=== PATIENT | female | born 1945 | race Caucasian/White ===

== ENCOUNTER 2024-12-08 04:21 | Emergency (ER) | payer MEDICARE, SELFPAY ==
[2024-12-08 04:23] VITALS: BP 125/85; PULSE 70; RESP 16; TEMP 36.1; O2SAT 99
[2024-12-08 04:37] VITALS: PULSE 76
[2024-12-08 04:42] VITALS: BP 147/96; PULSE 77; RESP 19; O2SAT 94; O2SAT 95
[2024-12-08 04:43] VITALS: O2SAT 94
[2024-12-08 04:45] LABS: Basophils Percent Auto 0.4 % (0.2-1.2); Eosinophils Absolute Auto 0.2 K/mm3 (0-0.3); Eosinophils Percent Auto 2.3 % (0-4.4); Hematocrit 42.4 % (37.0-47.0); Hemoglobin 15.1 g/dL (12.0-15.0); Immature Granulocyte Absolute 0.02 K/mm3 (0.00-0.031); Immature Granulocyte Percent A 0.3 % (0-0.5); Lymphocytes Percent Auto 22.7 % (18.3-44.2); Mean Corpuscular HGB Conc 35.6 g/dl (32-36); Mean Corpuscular Hemoglobin 34.3 pg (26-34); Mean Corpuscular Volume 96.4 fl (80-100); Monocytes Absolute Auto 0.5 K/mm3 (0.1-0.6); Monocytes Percent Auto 7.5 % (2.6-8.5); Neutrophils Absolute Auto 4.7 K/mm3 (1.3-6.7); Neutrophils Percent Auto 66.8 % (45.5-73.1); Platelet Count Result 202 k/mm3 (150-375); Red Cell Distribution Width 12.6 % (11.5-14.5); White Blood Count 7.1 K/mm3 (4.5-10.0)
[2024-12-08 04:58] LABS: Prothrombin Time 13.3 Seconds (11.1-14.7)
[2024-12-08 04:59] LABS: Partial Thromboplastin Time 28.1 Seconds (22.3-36.8)
[2024-12-08 05:13] LABS: Troponin I < 0.012 ng/mL (0.000-0.034)
[2024-12-08 05:15] LABS: Alanine Aminotransferase 55 U/L (6-35); Albumin Level 4.6 g/dL (3.5-5.1); Alkaline Phosphatase 92 U/L (38-126); Anion Gap 14 mmol/L (4-12); Aspartate Amino Transferase 44 U/L (14-36); Bilirubin,Total 0.7 mg/dL (0.2-1.3); Blood Urea Nitrogen 47 mg/dL (7-17); Calcium 9.7 mg/dL (8.4-10.2); Carbon Dioxide 19 mmol/L (22-30); Chloride 101 mmol/L (98-107); Estimated CRCL calculation 53 ml/min; Estimated Glomerular Filt Rate > 60; Glucose 156 mg/dL (65-110); Lipase 777 U/L (23-300); Potassium 3.8 mmol/L (3.4-5.0); Sodium 134 mmol/L (137-145)
--- NOTE | 2024-12-08 05:38 | ED.CHESTPAIN ---
HPI - Chest Pain General Chief Complaint: Chest Pain Stated Complaint: chest pain x1 day Time Seen by Provider: 12/08/24 04:35 History of Present Illness HPI narrative: Patient is a 79-year-old female who presents to the emergency department this evening complaining of chest pain which started yesterday morning. Daughter who is present at bedside with the patient provides majority of the history as patient has a history of dementia. Patient's nursing facility contacted the daughter informing her that yesterday patient had chest pain and she was administered aspirin in the morning and pain did improve however patient was more tired and lethargic throughout the day. Today the patient was complaining of more severe chest pain so they decided to bring her into the emergency department for further evaluation. She did receive aspirin and ibuprofen. Upon arrival to the emergency department, patient states that now she does not have any pain and is resting comfortably requesting fluids stating that she is very hungry. States that the pain was right-sided but denies any radiation of the pain and denies any associated symptoms including any nausea, vomiting or abdominal pain. No additional symptoms or concerns at this time. Related Data Allergies Allergy/AdvReac Type Severity Reaction Status Date / Time Penicillins Allergy Intermediate Rash Verified 12/08/24 04:23 Review of Systems Review of Systems: All systems are reviewed and are negative unless stated otherwise in the HPI. Exam Narrative: General: Alert, awake, afebrile, in no acute distress. HEENT: PERRL, no rhinorrhea, no post nasal drip, oropharynx clear. Neck: Trachea midline, no JVD, no lymphadenopathy. Cardiovascular: Regular rate and rhythm, no murmurs, rubs or gallops, no peripheral edema. Respiratory: Clear to auscultation bilaterally, no tachypnea, no wheezing, no rhonchi, no rubs, no respiratory distress. Abdomen: Soft, nontender, nondistended, no rebound, no guarding, no peritoneal signs. Musculoskeletal: No joint swelling or deformity, normal muscle tone. Skin: No rashes or petechia, no signs of infection. Psychiatric: Alert and oriented, normal behavior and judgment for situation. Neurological: Alert and oriented to person, place, and time. Follows all commands. No focal deficits, speech is clear and fluent. Course Vital Signs Vital signs: Vital Signs Temperature 97.0 F L 12/08/24 04:23 Pulse Rate 70 03/02/25 04:23 Respiratory Rate 16 12/08/24 04:23 Blood Pressure 125/85 12/08/24 04:23 Pulse Oximetry 99 12/08/24 04:23 Oxygen Delivery Room Air 12/08/24 04:23 Temperature 97.0 F L 12/08/24 04:23 Pulse Rate 77 12/08/24 04:42 Respiratory Rate 19 12/08/24 04:42 Blood Pressure 147/96 H 12/08/24 04:42 Pulse Oximetry 94 12/08/24 04:43 Oxygen Delivery Room Air 12/08/24 04:43 MDM - Chest Pain MDM Narrative Medical decision making narrative: The patient was evaluated by myself in the emergency department. History is obtained from patient who is an independent historian and physical exam was performed. External medical records were reviewed at this time. IV was established and pertinent tests were ordered. EKG was obtained which revealed sinus rhythm rate of 65 beats per minute, no evidence of acute ischemia. EKG was independently interpreted by me and is currently pending official cardiology read. Laboratory results obtained revealing a normal troponin, elevated lipase at 777, mild transaminitis with an AST of 44 and an ALT of 55 otherwise unremarkable. Imaging studies obtained included CXR which was independently interpreted by me revealing no acute cardiopulmonary process, which is pending final radiology interpretation. CT abdomen pelvis with IV contrast was also obtained at this time and bili interpreted by me revealing no acute intra-abdominal process. Differential diagnosis considerations include coronary artery disease, costochondritis, infectious process such as pneumonia, acute pancreatitis. Comorbidities impacting this visit include none. I have evaluated and discussed social determinants of health with the patient that could potentially impact subsequent diagnosis and treatment plans. On repeat assessment of the patient, reevaluation revealed that the patient is doing well and is in no acute distress. Patient symptoms have improved since she arrived to our emergency department. Repeat vital signs were all reviewed and noted to be stable. Differential diagnosis and treatment plan were discussed with the patient at bedside. Patient agrees with discussion and after shared medical decision making agrees with discharge. All questions were answered to the patient's satisfaction. Patient will follow up with her marbleizer in 3-5 days. Patient was provided with strict return precautions and instructed to return to the emergency department if any new or worsening symptoms develop. The patient was discharged in stable condition. Lab Data 12/08/24 04:39 12/08/24 04:39 Labs: Lab Results 12/08/24 Range/Units 04:39 WBC 7.1 (4.5-10.0) K/mm3 RBC 4.40 (4.2-5.4) M/mm3 Hgb 15.1 H (12.0-15.0) g/dL Hct 42.4 (37.0-47.0) % MCV 96.4 (80-100) fl MCH 34.3 H (26-34) pg MCHC 35.6 (32-36) g/dl RDW 12.6 (11.5-14.5) % Plt Count 202 (150-375) k/mm3 MPV 9.0 (7.4-10.4) fl Immature Gran % (Auto) 0.3 (0-0.5) % Neut % (Auto) 66.8 (45.5-73.1) % Lymph % (Auto) 22.7 (18.3-44.2) % Newton % (Auto) 7.5 (2.6-8.5) % Eos % (Auto) 2.3 (0-4.4) % Baso % (Auto) 0.4 (0.2-1.2) % Lymph # (Auto) 1.60 (0.9-3.2) K/mm3 Newton # (Auto) 0.5 (0.1-0.6) K/mm3 Eos # (Auto) 0.2 (0-0.3) K/mm3 Baso # (Auto) 0.0 (0.0-0.1) K/mm3 Abs Immat Gran (auto) 0.02 (0.00-0.031) K/mm3 Absolute Neuts (auto) 4.7 (1.3-6.7) K/mm3 Absolute Nucleated RBC 0.000 (0.0-0.012) K/mm3 Nucleated RBC % 0.0 (0.0-0.2) % PT 13.3 (11.1-14.7) Seconds INR 1.0 APTT 28.1 (22.3-36.8) Seconds Sodium 134 L (137-145) mmol/L Potassium 3.8 (3.4-5.0) mmol/L Chloride 101 (98-107) mmol/L Carbon Dioxide 19 L (22-30) mmol/L Anion Gap 14 H (4-12) mmol/L BUN 47 H (7-17) mg/dL Creatinine 0.64 L (0.7-1.0) mg/dL Estim Creat Clear Calc 53 ml/min Estimated GFR > 60 (59 - ) Glucose 156 H (65-110) mg/dL Calcium 9.7 (8.4-10.2) mg/dL Total Bilirubin 0.7 (0.2-1.3) mg/dL AST 44 H (14-36) U/L ALT 55 H (6-35) U/L Alkaline Phosphatase 92 (38-126) U/L Troponin I < 0.012 (0.000-0.034) ng/mL Total Protein 8.0 (6.3-8.2) g/dL Albumin 4.6 (3.5-5.1) g/dL Lipase 777 H (23-300) U/L Discharge Plan Discharge Clinical Impression: Atypical chest pain Patient Disposition: Home, Self-Care Condition: Improved Instructions: Antibiotic Form, Chest Pain (ED) Additional Instructions: Please follow-up with your marbleizer within the next 3-5 days. Return to the emergency department if any new or worsening symptoms develop. Patient Language: Azerbaijani Follow-up/Referrals: Ceci Lockwood DO [Physician] - 3 Days PHYSICIAN,HOST HOSTESS [Non-Staff] - Time of Disposition: 06:41
== END 2024-12-08 06:49 ==
PROVIDERS: Emergency Provider Emergency Medicine
DX: R07.89 Other chest pain (principal); F03.90 Unspecified dementia, unspecified severity, without behavioral disturbance, psychotic disturbance, mood disturbance, and anxiety; R94.31 Abnormal electrocardiogram [ECG] [EKG]
CPT/HCPCS: 36415; 71045; 74177; 80053; 83690; 84484; 85025; 85610; 85730; 93005; 99284; Q9967

== ENCOUNTER 2025-01-02 04:31 | Emergency (ER) | payer MEDICARE, SELFPAY ==
--- NOTE | ~2025-01-02 | CT_ITS ---
EXAMINATION: CT cervical spine wo con DATE: 01/02/2025 06:13 INDICATION: Neck injury. Fall. TECHNIQUE: Computed tomography (CT) of the cervical spine was performed without intravenous contrast. Automated exposure control and iterative reconstruction technique were employed. The dose-length pro duct was 214.92 mGy-cm. COMPARISON: None FINDINGS: There is kyphosis of cervical spine. There is 6 degrees levocurvature of cervical spine. Th ere is 3 mm anterolisthesis of C3 on C4. Vertebral body heights are normal. There is mildly decreased disc height at C3-C4. There is severely decreased disc height from C4-C5 through C6-C7 with interbod y fusion at C4-C5. The following disc levels are specifically discussed: C2-C3: There is mild left uncovertebral joint osteoarthritis. There is mild right and severe left fac et joint osteoarthritis. There is mild left neural foraminal stenosis. There is no central canal sten osis. C3-C4: There is severe right and moderate left uncovertebral joint osteoarthritis. There is severe bi lateral facet joint osteoarthritis. There is mild bilateral neural foraminal stenosis. There is mild central canal stenosis. C4-C5: There is moderate bilateral uncovertebral joint hypertrophy. There is mild bilateral facet kevin nt hypertrophy. There is no neural foraminal stenosis. There is mild central canal stenosis. C5-C6: There is severe bilateral uncovertebral joint osteoarthritis. There is moderate right and mild left facet joint osteoarthritis. There is mild bilateral neural foraminal stenosis. There is mild ce ntral canal stenosis. C6-C7: There is severe bilateral uncovertebral joint osteoarthritis. There is mild bilateral facet berkley int osteoarthritis. There is mild left neural foraminal stenosis. There is mild central canal stenosi s. C7-T1: There is no uncovertebral joint osteoarthritis. There is severe bilateral facet joint osteoart hritis. There is mild left neural foraminal stenosis. There is no central canal stenosis. IMPRESSION: 1. No fracture. 2. Severe cervical spondylosis. Reviewed, dictated and finalized at location A.
--- NOTE | ~2025-01-02 | XR_ITS ---
EXAMINATION: XR hip BI 2V w AP pelvis DATE: 01/02/2025 06:29 INDICATION: Hip pain. Fall. TECHNIQUE: An anteroposterior view of the pelvis and 2 views of each hip were obtained. COMPARISON: None. FINDINGS: There is lumbar levoscoliosis and severe spondylosis. No fracture. There is mild osteoarthr itis of the hips. Osteitis pubis is noted. IMPRESSION: 1. Mild osteoarthritis of the hips. Reviewed, dictated and finalized at location A.
--- NOTE | ~2025-01-02 | CT_ITS ---
EXAMINATION: CT lumbar spine wo con DATE: 01/02/2025 06:14 INDICATION: Low back pain. Fall. TECHNIQUE: Computed tomography (CT) of the lumbar spine was performed without intravenous contrast. A utomated exposure control and iterative reconstruction technique were employed. The dose-length produ ct was 339.70 mGy-cm. COMPARISON: CT abdomen and pelvis 12/08/2024 FINDINGS: There is diverticulosis of the colon without evidence of diverticulitis. There is 21 degree s lumbar levoscoliosis. There is mild chronic anterior wedging of T12 vertebral body. There is modera tely decreased disc height at T12-L1, severely decreased disc height at L1-L2 and L2-L3, mildly decre ased disc height at L3-L4, and severely decreased disc height at L4-L5 and L5-S1. The following disc levels are specifically discussed: L1-L2: The disc is bulging. There is moderate right and mild left facet joint osteoarthritis. There i s mild left neural foraminal stenosis. There is mild central canal stenosis. L2-L3: The disc is bulging. There is mild bilateral facet joint osteoarthritis. There is mild bilater al neural foraminal stenosis. There is mild central canal stenosis. L3-L4: The disc is bulging. There is mild right and moderate left facet joint osteoarthritis. There i s mild bilateral neural foraminal stenosis. There is mild central canal stenosis. L4-L5: The disc is bulging. There is severe bilateral facet joint osteoarthritis. There is mild bilat eral neural foraminal stenosis. There is mild central canal stenosis. L5-S1: The disc is bulging. There is severe bilateral facet joint osteoarthritis. There is mild bilat eral neural foraminal stenosis. There is mild central canal stenosis. IMPRESSION: 1. No fracture. 2. Severe lumbar spondylosis. 3. Lumbar levoscoliosis. Reviewed, dictated and finalized at location A.
--- NOTE | ~2025-01-02 | CT_ITS ---
EXAMINATION: CT brain wo con DATE: 01/02/2025 06:13 INDICATION: Head injury. Fall. TECHNIQUE: Computed tomography (CT) of the head was performed without intravenous contrast. The mA wa s adjusted according to patient size. Iterative reconstruction technique was employed. The dose-lengt h product was 681.00 mGy-cm. COMPARISON: None FINDINGS: There are scattered areas of low attenuation in the cerebral white matter. There is no intr acranial hemorrhage, acute infarction, or abnormal intracranial mass lesion. The ventricles are abraham l in size. There are likely changes of ocular lens replacement surgeries. There is mild mucosal thick ening in the paranasal sinuses. The mastoid air cells are normal. IMPRESSION: 1. Moderate nonspecific cerebral white matter disease, which likely represents chronic small vessel i schemic disease. Reviewed, dictated and finalized at location A. IMPRESSION: 1. Moderate nonspecific cerebral white matter disease, which likely represents chronic small vessel ischemic disease.
[2025-01-02 04:27] VITALS: BP 109/72; PULSE 67; RESP 20; TEMP 36.8; O2SAT 96
[2025-01-02 04:37] VITALS: BP 109/72; PULSE 79; RESP 18; O2SAT 94
--- NOTE | 2025-01-02 05:06 | ED_ITS ---
HPI - Fall General Chief Complaint: Fall Stated Complaint: hip/pelvic pain; GLF yesterday Time Seen by Provider: 01/02/25 05:05 Source: patient, family and RN notes reviewed Mode of arrival: EMS Limitations: dementia History of Present Illness HPI Narrative: Patient presents with hip/pelvic pain. She had a ground level fall reportedly yesterday although the details are unclear as she does not recall falling (his tory of dementia) and daughter might seem to indicate that it was earlier this morning. She resides at an assisted living facility. She does not know if it is her right or left more than the other. She denies any paresthesias or saddle anesthesia ( I haven't had any tingling down there in awhile! she states) although she does state that her toes are numb but this is secondary to her chronic neuropathy. She is complaining of low back pain 6/10 severity. Denies any incontinence of bowel or bladder. Not on any anticoagulation per her or her family member. Related Data Allergies Allergy/AdvReac Type Severity Reaction Status Date / Time Penicillins Allergy Intermediate Rash Verified 12/08/24 04:23 lactose Allergy unknown Verified 01/02/25 05:25 wheat Allergy unknown Verified 01/02/25 05:26 PMFSH Past Medical History Medical History Arteriosclerotic vascular disease Dementia Osteoporosis Mario thyroiditis Hypothyroidism Pneumococcal vaccine administered 07/03/2018 COVID-19 vaccine administered 11/27/2020, 12/18/2020; 09/09/2021 Social History Social History Social History: POLST signed 02/07/24: Yes CPR, Full Code; selective treatment Living arrangements: assisted living Additional living arrangements comments: [place] since 01/15/24 Occupation/Education: retired 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 HEAD: Normocephalic, atraumatic. EYES: Non injected, non icteric ENT: Nares clear, no rhinorrhea or epistaxis. NECK: Supple. CHEST: Speaking in full sentences. No respiratory distress. HEART: Regular rate and rhythm. . ABDOMEN: Soft, nondistended. Nontender to palpation. EXTREMITIES: Normal range of motion. No lower extremity edema. Pelvis: Stable to compression although with right hip tenderness to palpation. No overlying bony deformity or ecchymosis. SKIN: Warm, dry, no rash. NEURO: No focal deficits. Alert and oriented. Full strength and patient able to demonstrate the ability to lift legs off of the bed and hold them without any motor drift. Sensation intact throughout bilateral lower extremities. PSYCH: Normal mood and affect. Course Vital Signs Vital signs: Vital Signs Temperature 98.3 F 01/02/25 04:27 Pulse Rate 67 01/02/25 04:27 Respiratory Rate 20 01/02/25 04:27 Blood Pressure 109/72 01/02/25 04:27 Pulse Oximetry 96 01/02/25 04:27 Oxygen Delivery Room Air 01/02/25 04:27 Temperature 98.3 F 01/02/25 04:27 Pulse Rate 76 01/02/25 08:39 Respiratory Rate 18 01/02/25 08:39 Blood Pressure 110/74 01/02/25 08:39 Pulse Oximetry 98 01/02/25 08:39 Oxygen Delivery Room Air 01/02/25 04:27 MDM - Fall MDM Narrative Medical decision making narrative: This is an exceedingly pleasant 79-year-old female with history of dementia who presents with hip/pelvis pain after a ground level fall that occurred either yesterday or today. Patient also having low back pain. She does not recall falling. In the emergency department they are afebrile with vital signs within normal limits. Medication list is reviewed. Patient is not on any anticoagulation. X-ray and CT imaging performed as below; included head and neck given patient's age and her not recalling the details though I suspect this is secondary to her dementia. No focal neuro deficits. Imaging negative for acute process. Patient ambulated and per nurses x2, appropriate gait assessment. Patient discharged back to facility in stable condition. Provided multimodal pain regimen prescriptions. Advised to follow-up primary care physician return with new or worsening symptoms. Patient and her daughter comfortable with the plan and verifies understanding. Discussed balancing rest with pain control to stay moving and active so don't become more sore/achy. Differential Diagnosis Differential diagnosis: Likely compression fracture and other (Fracture, dislocation, bony contusion; intracranial hemorrhage) Imaging Data Radiologist's impression: Impressions Head CT 01/02/25 06:17 IMPRESSION: 1. Moderate nonspecific cerebral white matter disease, which likely represents chronic small vessel ischemic disease. Lumbar Spine CT 01/02/25 06:19 IMPRESSION: 1. No fracture. 2. Severe lumbar spondylosis. 3. Lumbar levoscoliosis. Cervical Spine CT 01/02/25 06:22 IMPRESSION: 1. No fracture. 2. Severe cervical spondylosis. Hip/Pelvis X-Ray 01/02/25 06:30 IMPRESSION: 1. Mild osteoarthritis of the hips. Discharge Plan Discharge Clinical Impression: Fall, Lumbar spondylosis, Levoscoliosis of lumbar spine, Cervical spondylosis, Osteoarthritis of both hips, Acute hip pain Patient Disposition: [facility] Senior Living/Asst Living Condition: Stable Instructions: Antibiotic Form, Osteoarthritis (DC), Fall Prevention (ED), Hip Pain (ED) Additional Instructions: As we discussed, no bleeding in her brain or fracture/broken bones. You should expect to be sore and achy but balance some rest with staying active. Multimodal pain medications can help with this. Acetaminophen/Tylenol (maximum 4000 mg per day) is safe to take with NSAIDs (ibuprofen/Motrin) for pain relief. You have also been prescribed topical lidocaine patches. Follow-up with primary care physician/facility quality engineer medical device. Return to the emergency department any new or worsening symptoms. Patient Language: Syrian Prescriptions: New acetaminophen 500 mg capsule 1,000 mg PO Q6H PRN (Reason: pain) Qty: 30 0RF lidocaine 4 % adhesive patch,medicated 1 patch topical DAILY PRN (Reason: pain) Qty: 5 0RF ibuprofen 600 mg tablet 600 mg PO TID PRN (Reason: pain) Qty: 30 0RF Follow-up/Referrals: Dr Nathalie Mahoney & Dr Con Jones [Other] (per asst living documentation) UNKNOWN,DOCTOR [Primary Care Provider] - Stand Alone Forms: Half-Way Discharge Time of Disposition: 07:13
--- OUTSIDE RECORDS SUMMARY | 2025-01-02 05:18 | XMS_ITS | Data Portability ---
Author Organization [facility] [employer], Main Office Address [address] [place] [id number] Assessment No assessment recorded. Plan of Treatment Reminders Order Date Submit Date Provider Last Modified By Organization Details Last Modified Time Details Appointments None recorded. Lab CMP, serum or plasma 2022 023 [facility] (Lab), [address] [place], [address], 3 18:24:46 TSH, serum or plasma 2022 023 [facility] (Lab), [address] [place], [address], 3 19:35:34 TSH, serum or plasma 2022 023 [facility] (Lab), [address] [place], [address], 3 19:53:10 CBC 2022 023 [facility] (Lab), [address] [place], [address], 3 18:32:12 CMP, serum or plasma 2022 023 [facility] (Lab), [address] [place], [address], 3 19:15:25 TSH, serum or plasma 2022 023 [facility] (Lab), [address] [place], [address], 3 19:02:17 CBC 2022 023 [facility] (Lab), [address] [place], [address], 3 18:11:18 CMP, serum or plasma 2022 023 [facility] (Lab), [address] [place], [address], 3 18:29:02 Referral neurologist referral 2022 023 [email or web address] 3 [facility] [place], [address] [place] [address], [address], 3 09:59:13 vestibular therapy referral - Needs vestibular therapy [address] [facility], [address] [facility], [address], [place], [address], 3 11:32:30 Procedures None recorded. Surgeries None recorded. Imaging None recorded. Medication Orders fluoxetine 20 mg capsule 2022 023 [id number], [address], [place], [id number], 3 14:05:28 prednisone 10 mg tablet 2022 023 [email or web address] [facility] #[id number], [address], [place], [id number], 3 14:38:41 fluoxetine 20 mg capsule 2022 023 [facility][id number], [address], [place], [id number], 3 14:47:00 Patient TargetsNo targets recorded. Patient InstructionsNo instructions recorded. Reason for Referral Vestibular Therapy Referral for Dizziness Needs vestibular therapy Referring Physician: [facility], Encounter Date: 02/28/2023 Neurologist Referral for Dilorraine ziness of unknown cause Referring Physician: [facility], Encounter Date: 06/13/2023 Results Created Date Observation Date Name Description Value Unit Range Abnormal Flag Note LastModifiedBy Organization Detail LastModifiedTime 01/18/2001/17/2023 CBC W/O DIFFE RENTI AL white blood cells 7.4 x10'3 /uL 4.2-10 .8 Not Available [facility] (Lab) [address] [place], [address], 01/17/2023 18:11:18 01/18/2001/17/2023 CBC W/O DIFFE RENTI AL red blood cells 4.27 x10'6 /uL 3.80-5 .20 Not Available [facility] (Lab) [address] [place], [address], 01/17/2023 18:11:18 01/18/20 23 01/17/2023 CBC W/O DIFFE RENTI AL hemoglobin 13.8 g/dL 12.0-1 5.6 Not Available [facility] (Lab) [address] [place], [address], 01/17/2023 18:11:18 01/18/2001/17/2023 CBC W/O DIFFE RENTI AL hematocrit 40.9 % 35.7-4 5.7 Not Available [facility] (Lab) [address] [place], [address], 01/17/2023 18:11:18 01/18/20 23 01/17/2023 CBC W/O DIFFE RENTI AL mean red cell volume 95.8 fL 82.0-9 9.0 Not Available [facility] (Lab) [address] [place], [address], 01/17/2023 18:11:18 01/18/20 23 01/17/2023 CBC W/O DIFFE RENTI AL mean red cell hemoglobin 32.3 pg 27.0-3 3.0 Not Available [facility] (Lab) [address] [place], [address], 01/17/2023 18:11:18 01/18/20 23 01/17/2023 CBC W/O DIFFE RENTI AL mean RBC HGB concentratio n 33.7 g/dL 31.0-3 6.0 Not Available [facility] (Lab) [address] [facility] [place], [address], 01/17/2023 18:11:18 01/18/20 23 01/17/2023 CBC W/O DIFFE RENTI AL red cell distribution width 12.9 % 11.8-1 5.5 Not Available [facility] (Lab) [address] [place], [address], 01/17/2023 18:11:18 01/18/20 23 01/17/2023 CBC W/O DIFFE RENTI AL platelets 202 x10'3 /uL 150-40 0 Not Available [facility] (Lab) [address] [place], [address], 01/17/2023 18:11:18 01/18/20 23 01/17/2023 CBC W/O DIFFE RENTI AL mean platelet volume 10.7 fL 9.0-12 .4 Not Available [facility] (Lab) [address] [place], [address], 01/17/2023 18:11:18 01/18/20 23 01/17/2023 COMPR EHENS BLANCA METAB OLIC PANEL sodium 135 mmol/ L 137-14 5 low Not Available [facility] (Lab) [address] [place], [address], 01/17/2023 18:29:02 01/18/20 23 01/17/2023 COMPR EHENS BLANCA METAB OLIC PANEL potassium 4.1 mmol/ L 3.5-5. 1 Not Available [facility] (Lab) [address] [facility] [place], [address], 01/17/2023 18:29:02 01/18/20 23 01/17/2023 COMPR EHENS BLANCA METAB OLIC PANEL chloride 103 mmol/ L 98-107 Not Available [facility] (Lab) [address] [place], [address], 01/17/2023 18:29:02 01/18/20 23 01/17/2023 COMPR EHENS BLANCA METAB OLIC PANEL carbon dioxide 22 mmol/ L 22-30 Not Available [facility] (Lab) [address] [place], [address], 01/17/2023 18:29:02 01/18/20 23 01/17/2023 COMPR EHENS BLANCA METAB OLIC PANEL anion gap 14.1 mmol/ L 14-22 Not Available [facility] (Lab) [address] [place], [address], 01/17/2023 18:29:02 01/18/20 23 01/17/2023 COMPR EHENS BLANCA METAB OLIC PANEL glucose 88 mg/dL 70-99 Not Available [facility] (Lab) [address] [place], [address], 01/17/2023 18:29:02 01/18/20 23 01/17/2023 COMPR EHENS BLANCA METAB OLIC PANEL BUN 25 mg/dL 8-19 high Not Available [facility] (Lab) [address] [place], [address], 01/17/2023 18:29:02 01/18/20 23 01/17/2023 COMPR EHENS BLANCA METAB OLIC PANEL creatinine 0.72 mg/dL 0.66-1 .25 Not Available [facility] (Lab) [address] [place], [address], 01/17/2023 18:29:02 01/18/20 23 01/17/2023 COMPR EHENS BLANCA METAB OLIC PANEL GFR >60 Refer ence Range : Bernice ge GFR Healt hy Adult : >60 mL/mi n/1.7 3 m2 Chron ic Kidne y Disea se: 15-60 mL/mi n/1.7 3 m2 Kidne y Failu re: <15/m L/min /1.73 m2 www.n iddk. nih.g ov The MDRD study equat ion has not been valid ated in child mio <18 years of age; pregn ant women ; the elder ly >85 years of age; or in some racia l or ethni c subgr oups, such as James nics. Outsi de the valid ated claudette eters , estim ated GFR is less accur ate, requi ring clini chana judgm ent on a case- by-ca se basis . Clini chana inter preta tion for other races and ages must be made by the clini ade. The MDRD study equat ion has not been valid ated for the evalu ation of serum creat inine relat ed to nutri simone l statu s or medic ation usage . For perso ns <18 years of age, a pedia tric GFR calcu lator is avail able on the [facility] websi te: https :[email or web address] [email or web address] rg/pr ofess ional s/kdo qi/gf r_cal culat or Not Available [facility] (Lab) [address] [place], [address], 01/17/2023 18:29:02 01/18/20 23 01/17/2023 COMPR EHENS BLANCA METAB OLIC PANEL alkaline phosphatase 93 U/L 38-126 Not Available [facility] (Lab) [address] [place], [address], 01/17/2023 18:29:02 01/18/20 23 01/17/2023 COMPR EHENS BLANCA METAB OLIC PANEL alanine aminotransfe rase 31 U/L 0-35 Not Available [facility] (Lab) [address] [place], [address], 01/17/2023 18:29:02 01/18/20 23 01/17/2023 COMPR EHENS BLANCA METAB OLIC PANEL aspartate aminotransfe rase 36 U/L 15-37 Not Available [facility] (Lab) [address] [place], [address], 01/17/2023 18:29:02 01/18/20 23 01/17/2023 COMPR EHENS BLANCA METAB OLIC PANEL bilirubin, total 0.70 mg/dL 0.20-1 .30 Not Available [facility] (Lab) [address] [place], [address], 01/17/2023 18:29:02 01/18/20 23 01/17/2023 COMPR EHENS BLANCA METAB OLIC PANEL calcium 9.5 mg/dL 8.4-10 .2 Not Available [facility] (Lab) [address] [facility] [place], [address], 01/17/2023 18:29:02 01/18/20 23 01/17/2023 COMPR EHENS BLANCA METAB OLIC PANEL total protein 7.0 g/dL 6.3-8. 2 Not Available [facility] (Lab) [address] [place], [address], 01/17/2023 18:29:02 01/18/20 23 01/17/2023 COMPR EHENS BLANCA METAB OLIC PANEL albumin 4.2 g/dL 3.0-4. 4 Not Available [facility] (Lab) [address] [facility] [place], [address], 01/17/2023 18:29:02 01/18/20 23 01/17/2023 COMPR EHENS BLANCA METAB OLIC PANEL globulin 2.8 g/dL 2.6-4. 2 Not Available [facility] (Lab) [address] [place], [address], 01/17/2023 18:29:02 01/18/20 23 01/17/2023 COMPR EHENS BLANCA METAB OLIC PANEL A/G ratio 1.5 ratio 1.0-2. 0 Not Available [facility] (Lab) [address] [place], [address], 01/17/2023 18:29:02 01/18/20 23 01/17/2023 TSH thyroid-stim ulating hormone 0.075 uIU/m L 0.465- 4.680 low Not Available [facility] (Lab) [address] [place], [address], 01/17/2023 19:02:16 03/21/20 23 03/21/2023 CBC W/O DIFFE RENTI AL white blood cells 8.7 x10'3 /uL 4.2-10 .8 Not Available [facility] (Lab) [address] [place], [address], 03/21/2023 18:32:12 03/21/20 23 03/21/2023 CBC W/O DIFFE RENTI AL red blood cells 4.21 x10'6 /uL 3.80-5 .20 Not Available [facility] (Lab) [address] [place], [address], 03/21/2023 18:32:12 03/21/20 23 03/21/2023 CBC W/O DIFFE RENTI AL hemoglobin 13.8 g/dL 12.0-1 5.6 Not Available [facility] (Lab) [address] [place], [address], 03/21/2023 18:32:12 03/21/20 23 03/21/2023 CBC W/O DIFFE RENTI AL hematocrit 40.6 % 35.7-4 5.7 Not Available [facility] (Lab) [address] [place], [address], 03/21/2023 18:32:12 03/21/2003/21/2023 CBC W/O DIFFE RENTI AL mean red cell volume 96.4 fL 82.0-9 9.0 Not Available [facility] (Lab) [address] [place], [address], 03/21/2023 18:32:12 03/21/20 23 03/21/2023 CBC W/O DIFFE RENTI AL mean red cell hemoglobin 32.8 pg 27.0-3 3.0 Not Available [facility] (Lab) [address] [place], [address], 03/21/2023 18:32:12 03/21/20 23 03/21/2023 CBC W/O DIFFE RENTI AL mean RBC HGB concentratio n 34.0 g/dL 31.0-3 6.0 Not Available [facility] (Lab) [address] [place], [address], 03/21/2023 18:32:12 03/21/2003/21/2023 CBC W/O DIFFE RENTI AL red cell distribution width 12.3 % 11.8-1 5.5 Not Available [facility] (Lab) [address] [place], [address], 03/21/2023 18:32:12 03/21/2003/21/2023 CBC W/O DIFFE RENTI AL platelets 184 x10'3 /uL 150-40 0 Not Available [facility] (Lab) [address] [place], [address], 03/21/2023 18:32:12 03/21/2003/21/2023 CBC W/O DIFFE RENTI AL mean platelet volume 11.0 fL 9.0-12 .4 Not Available [facility] (Lab) [address] [place], [address], 03/21/2023 18:32:12 03/21/20 23 03/21/2023 COMPR EHENS BLANCA METAB OLIC PANEL sodium 136 mmol/ L 137-14 5 low Not Available [facility] (Lab) [address] [place], [address], 03/21/2023 19:15:24 03/21/20 23 03/21/2023 COMPR EHENS BLANCA METAB OLIC PANEL potassium 4.0 mmol/ L 3.5-5. 1 Not Available [facility] (Lab) [address] [place], [address], 03/21/2023 19:15:24 03/21/20 23 03/21/2023 COMPR EHENS BLANCA METAB OLIC PANEL chloride 100 mmol/ L 98-107 Not Available [facility] (Lab) [address] [place], [address], 03/21/2023 19:15:24 03/21/20 23 03/21/2023 COMPR EHENS BLANCA METAB OLIC PANEL carbon dioxide 24 mmol/ L 22-30 Not Available [facility] (Lab) [address] [place], [address], 03/21/2023 19:15:24 03/21/20 23 03/21/2023 COMPR EHENS BLANCA METAB OLIC PANEL anion gap 16.0 mmol/ L 14-22 Not Available [facility] (Lab) [address] [place], [address], 03/21/2023 19:15:24 03/21/20 23 03/21/2023 COMPR EHENS BLANCA METAB OLIC PANEL glucose 89 mg/dL 70-99 Not Available [facility] (Lab) [address] [place], [address], 03/21/2023 19:15:24 03/21/20 23 03/21/2023 COMPR EHENS BLANCA METAB OLIC PANEL BUN 34 mg/dL 8-19 high Not Available [facility] (Lab) [address] [place], [address], 03/21/2023 19:15:24 03/21/2003/21/2023 COMPR EHENS BLANCA METAB OLIC PANEL creatinine 0.72 mg/dL 0.66-1 .25 Not Available [facility] (Lab) [address] [place], [address], 03/21/2023 19:15:24 03/21/2003/21/2023 COMPR EHENS BLANCA METAB OLIC PANEL GFR >60 Refer ence Range : Bernice ge GFR Healt hy Adult : >60 mL/mi n/1.7 3 m2 Chron ic Kidne y Disea se: 15-60 mL/mi n/1.7 3 m2 Kidne y Failu re: <15/m L/min /1.73 m2 www.n iddk. nih.g ov The MDRD study equat ion has not been valid ated in child mio <18 years of age; pregn ant women ; the elder ly >85 years of age; or in some racia l or ethni c subgr oups, such as [facility] nics. Outsi de the valid ated claudette eters , estim ated GFR is less accur ate, requi ring clini chana judgm ent on a case- by-ca se basis . Clini chana inter preta tion for other races and ages must be made by the clini ade. The MDRD study equat ion has not been valid ated for the evalu ation of serum creat inine relat ed to nutri simone l statu s or medic ation usage . For perso ns <18 years of age, a pedia tric GFR calcu lator is avail able on the [facility] websi te: https :[email or web address] chahal.[email or web address] brewster.o rg/pr ofess ional s/kdo qi/gf r_cal culat or Not Available [facility] (Lab) [address] [place], [address], 03/21/2023 19:15:24 03/21/20 23 03/21/2023 COMPR EHENS BLANCA METAB OLIC PANEL alkaline phosphatase 90 U/L 38-126 Not Available [facility] (Lab) [address] [place], [address], 03/21/2023 19:15:24 03/21/20 23 03/21/2023 COMPR EHENS BLANCA METAB OLIC PANEL alanine aminotransfe rase 27 U/L 0-35 Not Available [facility] (Lab) [address] [place], [address], 03/21/2023 19:15:24 03/21/20 23 03/21/2023 COMPR EHENS BLANCA METAB OLIC PANEL aspartate aminotransfe rase 37 U/L 15-37 Not Available [facility] (Lab) [address] [place], [address], 03/21/2023 19:15:24 03/21/20 23 03/21/2023 COMPR EHENS BLANCA METAB OLIC PANEL bilirubin, total 0.40 mg/dL 0.20-1 .30 Not Available [facility] (Lab) [address] [place], [address], 03/21/2023 19:15:24 03/21/20 23 03/21/2023 COMPR EHENS BLANCA METAB OLIC PANEL calcium 9.4 mg/dL 8.4-10 .2 Not Available [facility] (Lab) [address] [place], [address], 03/21/2023 19:15:24 03/21/20 23 03/21/2023 COMPR EHENS BLANCA METAB OLIC PANEL total protein 6.9 g/dL 6.3-8. 2 Not Available [facility] (Lab) [address] [place], [address], 03/21/2023 19:15:24 03/21/20 23 03/21/2023 COMPR EHENS BLANCA METAB OLIC PANEL albumin 4.0 g/dL 3.0-4. 4 Not Available [facility] (Lab) [address] [place], [address], 03/21/2023 19:15:24 03/21/20 23 03/21/2023 COMPR EHENS BLANCA METAB OLIC PANEL globulin 2.9 g/dL 2.6-4. 2 Not Available [facility] (Lab) [address] [place], [address], 03/21/2023 19:15:24 03/21/20 23 03/21/2023 COMPR EHENS BLANCA METAB OLIC PANEL A/G ratio 1.4 ratio 1.0-2. 0 Not Available [facility] (Lab) [address] [place], [address], 03/21/2023 19:15:24 03/21/2003/21/2023 TSH thyroid-stim ulating hormone 0.217 uIU/m L 0.465- 4.680 low Not Available [facility] (Lab) [address] [place], [address], 03/21/2023 19:53:10 06/13/20 23 06/13/2023 COMPR EHENS BLANCA METAB OLIC PANEL sodium 134 mmol/ L 137-14 5 low Not Available [facility] (Lab) [address] [place], [address], 06/13/2023 18:24:46 06/13/20 23 06/13/2023 COMPR EHENS BLANCA METAB OLIC PANEL potassium 3.8 mmol/ L 3.5-5. 1 Not Available [facility] (Lab) [address] [place], [address], 06/13/2023 18:24:46 06/13/20 23 06/13/2023 COMPR EHENS BLANCA METAB OLIC PANEL chloride 96 mmol/ L 98-107 low Not Available [facility] (Lab) [address] [place], [address], 06/13/2023 18:24:46 06/13/20 23 06/13/2023 COMPR EHENS BLANCA METAB OLIC PANEL carbon dioxide 29 mmol/ L 22-30 Not Available [facility] (Lab) [address] [place], [address], 06/13/2023 18:24:46 06/13/20 23 06/13/2023 COMPR EHENS BLANCA METAB OLIC PANEL anion gap 12.8 mmol/ L 14-22 low Not Available [facility] (Lab) [address] [place], [address], 06/13/2023 18:24:46 06/13/20 23 06/13/2023 COMPR EHENS BLANCA METAB OLIC PANEL glucose 107 mg/dL 70-99 high Not Available [facility] (Lab) [address] [place], [address], 06/13/2023 18:24:46 06/13/20 23 06/13/2023 COMPR EHENS BLANCA METAB OLIC PANEL BUN 22 mg/dL 8-19 high Not Available [facility] (Lab) [address] [place], [address], 06/13/2023 18:24:46 06/13/20 23 06/13/2023 COMPR EHENS BLANCA METAB OLIC PANEL creatinine 0.76 mg/dL 0.66-1 .25 Not Available [facility] (Lab) [address] [place], [address], 06/13/2023 18:24:46 06/13/20 23 06/13/2023 COMPR EHENS BLANCA METAB OLIC PANEL GFR >60 Refer ence Range : Bernice ge GFR Healt hy Adult : >60 mL/mi n/1.7 3 m2 Chron ic Kidne y Disea se: 15-60 mL/mi n/1.7 3 m2 Kidne y Failu re: <15/m L/min /1.73 m2 www.n iddk. nih.g ov The MDRD study equat ion has not been valid ated in child mio <18 years of age; pregn ant women ; the elder ly >85 years of age; or in some racia l or ethni c subgr oups, such as Hispa nics. Outsi de the valid ated claudette eters , estim ated GFR is less accur ate, requi ring clini chana judgm ent on a case- by-ca se basis . Clini chana inter preta tion for other races and ages must be made by the clini ade. The MDRD study equat ion has not been valid ated for the evalu ation of serum creat inine relat ed to nutri smione l statu s or medic ation usage . For perso ns <18 years of age, a pedia tric GFR calcu lator is avail able on the [facility] websi te: https :[email or web address] [email or web address] [email or web address] rg/pr ofess ional s/kdo qi/gf r_cal culat or Not Available [facility] (Lab) [address] [place], [address], 06/13/2023 18:24:46 06/13/2006/13/2023 COMPR EHENS BLANCA METAB OLIC PANEL alkaline phosphatase 90 U/L 38-126 Not Available [facility] (Lab) [address] [place], [address], 06/13/2023 18:24:46 06/13/2006/13/2023 COMPR EHENS BLANCA METAB OLIC PANEL alanine aminotransfe rase 33 U/L 0-35 Not Available [facility] (Lab) [address] [place], [address], 06/13/2023 18:24:46 06/13/2006/13/2023 COMPR EHENS BLANCA METAB OLIC PANEL aspartate aminotransfe rase 42 U/L 15-37 high Not Available [facility] (Lab) [address] [place], [address], 06/13/2023 18:24:46 06/13/20 23 06/13/2023 COMPR EHENS BLANCA METAB OLIC PANEL bilirubin, total 0.70 mg/dL 0.20-1 .30 Not Available [facility] (Lab) [address] [place], [address], 06/13/2023 18:24:46 06/13/20 23 06/13/2023 COMPR EHENS BLANCA METAB OLIC PANEL calcium 9.6 mg/dL 8.4-10 .2 Not Available [facility] (Lab) [address] [place], [address], 06/13/2023 18:24:46 06/13/20 23 06/13/2023 COMPR EHENS BLANCA METAB OLIC PANEL total protein 7.6 g/dL 6.3-8. 2 Not Available [facility] (Lab) [address] [place], [address], 06/13/2023 18:24:46 06/13/20 23 06/13/2023 COMPR EHENS BLANCA METAB OLIC PANEL albumin 4.6 g/dL 3.0-4. 4 high Not Available [facility] (Lab) [address] [place], [address], 06/13/2023 18:24:46 06/13/20 23 06/13/2023 COMPR EHENS BLANCA METAB OLIC PANEL globulin 3.0 g/dL 2.6-4. 2 Not Available [facility] (Lab) [address] [place], [address], 06/13/2023 18:24:46 06/13/20 23 06/13/2023 COMPR EHENS BLANCA METAB OLIC PANEL A/G ratio 1.5 ratio 1.0-2. 0 Not Available [facility] (Lab) [address] [place], [address], 06/13/2023 18:24:46 06/13/2006/13/2023 TSH W/REF ALONDRA FT4 TSH with reflex free T4 126.00 0 uIU/m L 0.465- 4.680 high Not Available [facility] (Lab) [address] [place], [address], 06/13/2023 19:35:34 06/13/2006/13/2023 T4 FREE free T4 0.39 NG/dL 0.78-2 .19 low Not Available [facility] (Lab) [address] [place], [address], 06/13/2023 20:10:09 Result Notes None recorded. Problems Name Problem SNOMED Code Status Onset Date Resolution Date Notes Provider Name and Address Organization Details Recorded Time Chronic urinary tract infection 992175963 Active 2021 Not Available [facility] 3 05:11:56 Mild neurocogni tive disorder 439830277 Active 2021 Not Available [facility] 3 05:11:56 Osteoarthr itis 151957651 Active 2021 Not Available [facility] 3 05:11:56 Hypothyroi dism 66119092 Active 2021 Not Available [facility] 3 05:11:56 Polymyalgi a rheumatica 32211199 Active 2021 Not Available [facility] 3 05:11:56 Fatigue 35161403 Active 2022 Not Available [facility] 3 05:11:56 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 Not Available [facility] 3 05:11:56 Anxiety 10582265 Active 2022 Not Available [facility] 3 05:11:56 Dizziness 172320718 Active 2022 Not Available [facility] 3 05:11:56 Mixed anxiety and depressive disorder 585130996 Active 2022 Not Available [facility] 3 05:11:56 Dementia 81180112 Active 2022 Not Available [facility] 3 05:11:56 Glossitis 79001737 Active 2022 Not Available [facility] 3 05:11:56 Hyperlipid emia 87308269 Active 2022 Not Available [facility] 3 05:11:56 Dizziness of unknown cause 644524646 Active 2022 Not Available [facility] 3 05:11:56 Mild dehydratio n 8398234667611 Active 2022 Not Available [facility] 3 05:11:56 Hyponatrem ia 82470112 Active 2022 Not Available [facility] 3 05:11:56 Vertigo 540221431 Active 2022 Shanthi Mckeon , 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 Procedures Surgical History Date Name Laterality Status Provider Name and Address Organization Details Recorded Time abdominoplasty completed Not Available [facility] 12/08/2022 01:24:12 Hysterectomy completed Not Available [facility] 12/08/2022 01:24:12 procedure on urinary bladder completed Not Available [facility] 12/08/2022 01:24:12 Imaging Results None recorded. Procedure Notes None recorded. Medical Equipment None Reported. Allergies Allergen ID Allergen Name Allergen Category Reaction Reaction Severity Criticality Documentation Date Start Date Code Code System Note Provider Name and Address Organization Details Recorded Time 84201 Product containin g penicilli n (product) medicatio n Not available Not available Not available 12/08/2022 57159 8001 SNOMED Not Available [facility] 3 01:26:23 Medications Name Sig Start Date Stop Date Status Note LastModified by Organization Details LastModified Time fluoxetine 40 mg capsule TAKE 1 CAPSULE BY MOUTH EVERY DAY active Not Available Not Available No t Available buspirone 5 mg tablet 07/25 completed Not Available Not Available Not Available prednisone 10 mg tablet Take 1 tablet every day by oral route for 14 days. 03/23 completed Not Available Not Available Not Available donepezil 5 mg tablet active Not Available Not Available No t Available azithromyci n 250 mg tablet TK 2 TS PO ON DAY 1, THEN TK 1 T PO D FOR 4 DAYS 07/25 completed Not Available Not Available Not Available fluconazole 200 mg tablet TAKE 1 TABLET BY MOUTH ONCE FOR ONE DOSE 07/25 completed Not Available Not Available Not Available Synthroid 125 mcg tablet TAKE 1 TABLET BY MOUTH DAILY 06/16 completed Not Available Not Available Not Available alendronate 70 mg tablet TAKE ONE TABLET BY MOUTH ONCE WEEKLY active Not Available Not Available No t Available clindamycin HCl 150 mg capsule TAKE 4 CAPSULES BY MOUTH 1 HOUR PRIOR TO DENTAL APPOINTME NT 07/25 completed Not Available Not Available Not Available sulfamethox azole 800 mg-trimetho prim 160 mg tablet TAKE 1 TABLET BY MOUTH TWICE DAILY 07/25 completed Not Available Not Available Not Available levothyroxi ne 25 mcg tablet active Not Available Not Available Not Available levothyroxi ne 75 mcg tablet 06/16 completed Not Available Not Available Not Available levothyroxi ne 100 mcg tablet TAKE 1 TABLET BY MOUTH ONCE DAILY WITH A 0.025MG TABLET FOR A TOTAL OF 0.125MG DAILY. active Not Available Not Available No t Available alprazolam 0.25 mg tablet TAKE 1 TABLET BY MOUTH EVERY DAY NEEDED active Not Available Not Available No t Available meclizine 25 mg tablet TAKE 1 TABLET BY MOUTH THREE TIMES DAILY NEEDED active Not Available Not Available No t Available benzonatate 100 mg capsule TAKE 1 CAPSULE BY MOUTH THREE TIMES DAILY FOR 7 DAYS 07/25 completed Not Available Not Available Not Available levothyroxi ne 50 mcg tablet active Not Available Not Available Not Available buspirone 10 mg tablet TAKE 1 TABLET BY MOUTH TWICE DAILY 02/28 completed Not Available Not Available Not Available folic acid 1 mg tablet active Not Available Not Available Not Available pravastatin 20 mg tablet TAKE 1 TABLET BY MOUTH DAILY 2023 active Not Available Not Available Not Avai lable levofloxaci n 500 mg tablet TAKE 1 TABLET BY MOUTH DAILY 07/25 completed Not Available Not Available Not Available estradiol 0.01% (0.1 mg/gram) vaginal cream APPLY TO PERIURETH RAL VAGINAL AREA THREE TIMES PER WEEK 07/25 completed Not Available Not Available Not Available methylpredn isolone 4 mg tablets in a dose pack FOLLOW PACKAGE DIRECTION S active Not Available Not Available No t Available fluoxetine 20 mg capsule TAKE 1 CAPSULE BY MOUTH EVERY DAY IN THE MORNING active Not Available Not Available No t Available escitalopra m 10 mg tablet TAKE 1/2 TABLET BY MOUTH TWICE DAILY 09/22 completed Not Available Not Available Not Available escitalopra m 20 mg tablet TAKE 1 TABLET BY MOUTH EVERY DAY active Not Available Not Available No t Available ezetimibe 10 mg tablet TAKE 1 TABLET BY MOUTH EVERY DAY active Not Available Not Available No t Available Restasis 0.05 % eye drops in a dropperette active Not Available Not Available Not Available memantine 10 mg tablet TAKE 1 TABLET BY MOUTH TWICE DAILY active Not Available Not Available No t Available memantine 5 mg tablet 01/17 completed Not Available Not Available Not Available escitalopra m 5 mg tablet 07/25 completed Not Available Not Available Not Available nitrofurant oin monohydrate /macrocryst als 100 mg capsule TAKE 1 CAPSULE BY MOUTH TWICE DAILY 07/25 completed Not Available Not Available Not Available chlorhexidi ne gluconate 0.12 % mouthwash SWISH AND SPIT 15 ML BY MOUTH TWICE DAILY active Not Available Not Available No t Available BinaxNOW COVID-19 Ag Self Test kit TEST DIRECTED TODAY 07/25 completed Not Available Not Available Not Available Vitals Date Recorded Body height Body mass index (BMI) Body weight Body temperature Heart rate Oxygen saturation Oxygen saturation in Arterial blood by Pulse oximetry Systolic blood pressure Diastolic blood pressure Provider Name and Address Organization Details Last Updated DateTime 3 167.64 cm 20.8 kg/m2 04209.4 2 g 98.2 [degF] 88 /min 97 % 97 % 102 mm[Hg] 70 mm[Hg] ROBB Zaldivar [place] [employer] [facility] 3 15:05:32 Date Recorded Body height Body mass index (BMI) Body weight Body temperature Heart rate Oxygen saturation Oxygen saturation in Arterial blood by Pulse oximetry Systolic blood pressure Diastolic blood pressure Provider Name and Address Organization Details Last Updated DateTime 3 167.64 cm 21.1 kg/m2 20410.6 g 98.1 [degF] 102 /min 98 % 98 % 102 mm[Hg] 70 mm[Hg] ROBB Zaldivar [place] [employer] [facility] 3 14:25:41 Date Recorded Body height Body mass index (BMI) Body weight Body temperature Heart rate Oxygen saturation Oxygen saturation in Arterial blood by Pulse oximetry Systolic blood pressure Diastolic blood pressure Provider Name and Address Organization Details Last Updated DateTime 3 167.64 cm 21 kg/m2 99564.0 1 g 97.8 [degF] 82 /min 96 % 96 % 104 mm[Hg] 70 mm[Hg] Verna Lopez [facility] [employer] [facility] 3 14:28:58 Date Recorded Body height Body mass index (BMI) Body weight Body temperature Heart rate Oxygen saturation Oxygen saturation in Arterial blood by Pulse oximetry Systolic blood pressure Diastolic blood pressure Provider Name and Address Organization Details Last Updated DateTime 3 167.64 cm 21.3 kg/m2 86658.1 9 g 97.8 [degF] 80 /min 97 % 97 % 106 mm[Hg] 80 mm[Hg] Verna Lopez [facility] [employer] [facility] 3 13:59:46 Date Recorded Body height Body mass index (BMI) Body weight Body temperature Heart rate Oxygen saturation Oxygen saturation in Arterial blood by Pulse oximetry Systolic blood pressure Diastolic blood pressure Provider Name and Address Organization Details Last Updated DateTime 3 167.64 cm 21.1 kg/m2 32033.6 g 97.9 [degF] 86 /min 97 % 97 % 116 mm[Hg] 82 mm[Hg] Shanthi bruno [facility] [employer] [facility] 3 14:03:48 Social History None recorded. Functional Status None recorded. Mental Status None recorded. Family History Relationship Description Onset Age of this Age Resolved Age Notes LastModified by Organization Details LastModified Time Sister Diabetes mellitus [id number] Not available 12/08/2022 01:24:14 Maternal Grandmother Diabetes mellitus [id number] Not available 12/08/2022 01:24:14 Mother Heart disease [id number] Not available 12/08/2022 01:24:14 Father Parkinson's disease [id number] Not available 12/08/2022 01:24:14 Medical History Condition Response BLINDNESS N RHEUMATIC FEVER N KIDNEY STONES N BLADDER PROBLEMS N MRSA N OTHER # 1 N POLIO N LUNG DISEASE/DISORDER N HISTORY OF DRUG ABUSE N RADIATION / CHEMOTHERAPY N COPD N Other # 2 N BLOOD DISEASES N SURGERY N EAR OR HEARING PROBLEMS N MUMPS N SHINGLES N FEMALE PROBLEMS / INFECTIONS N BOWEL PROBLEMS N DEPRESSION (INCLUDING POST ) N STROKE/TIA N THYROID DISEASE N ULCERS N BENIGN PROSTATIC HYPERPLASIA N MEASLES N CERVICALGIA N TB SKIN TEST N HYPOTENSION N MYOCARDIAL INFARCTION N PARAPELGIA N OBESITY N GERD/NAUSEA N ANEURYSM N URINARY/BLADDER/KIDNEY PROBLEMS Y CORONARY ARTERY DISEASE (CAD) N MENIERE'S DISEASE N ADDICTION CONCERNS N ENDOMETRIOSIS N USE OF BLOOD THINNERS N SKIN PROBLEMS N EMPHYSEMA N GASTROINTESTINAL DISORDER N MUSCLE,JOINT OR BONE PROBLEMS N GASTROINTESTINAL BLEEDING N BLOOD CLOTS N ASTHMA N CATARACTS N ERECTILE DYSFUNCTION N GI PROBLEMS N CHF N Low Testosterone N NEUROPATHY N INFERTILITY N AIDS/HIV N FRACTURES N CHEMOTHERAPY / RADIATION N VISION/EYE PROBLEMS N LIVER DISEASE N MALE HYPOGONADISM N HYPERTENSION N TOURETTE'S N ANXIETY DISORDER Y BLOOD TRANSFUSION N ANEMIA/BLOOD DISORDER N CHRONIC EAR INFECTIONS N BRONCHITIS N TUBERCULOSIS N GLAUCOMA N FOOT PROBLEM N DIVERTICULITIS N SLEEP APNEA N CHICKENPOX N ALLERGIES/HAYFEVER N INFECTIOUS DISEASE N PROSTATE N HEART ARRHYTHMIA N INSOMNIA N HIGH CHOLESTEROL / HYPERLIPIDEMIA N EYE PROBLEMS N HYPERTHYROIDISM N EATING DISORDER N EDEMA N CHRONIC PAIN SYNDROME N CONSTIPATION N CAROTID BLOCKAGE N BACK / NECK PROBLEMS N HAVE YOU BEEN HOSPITALIZED OR SEEN IN [facility] IN THE PAST YEAR ? N ATHEROSCLEROSIS N BREAST PROBLEMS N DIALYSIS N ECZEMA N FIBROMYALGIA N OSTEOPOROSIS N ARTHRITIS N NO SIGNIFICANT PAST MEDICAL HISTORY N APPENDICITIS N DIABETES, TYPE N BAD TEETH N HEARTBURN / REFLUX N ADD/ADHD N AUTISM SPECTRUM DISORDER (ASD) N HEPATITIS / LIVER DISEASE N PULMONARY DISEASE N GOUT N SLEEP DISORDER N ALZHEIMER'S DISEASE N PAIN N DEMENTIA N HERPES N SEIZURES/EPILEPSY N HEADACHES/MIGRAINES N VASCULAR DISEASE N PACEMAKER N DIZZINESS N HEART DISEASE/HEART PROBLEMS Y KIDNEY DISEASE N SCARLET FEVER N MULTIPLE SCLEROSIS N DEVELOPMENTAL OR BEHAVIORAL DISORDERS N MENTAL DISORDER/ILLNESS N CANCER: SPECIFY N CARDIAC ARRHYTHMIA N PNEUMONIA N ATRIAL FIBRILLATION N Gall Stones N PULMONARY EMBOLISM N AUTOIMMUNE DISEASE N Gynecological HistoryNo gynecological history recorded. Obstetrics History GPAL:G 3 P 3 0 0 3 Type Value Full Term 3 Living 3 Total 3 Past Encounters Encounter ID Performer Location Encounter Start Date Encounter Closed Date Diagnosis/Indication Diagnosis SNOMED-CT Code Diagnosis ICD10 Code Diagnosis Note [id number] [facility] [address] [facility] [place] [address] 07/25/2022 00:00:00 07/25/2022 20:33:24 [id number] [facility] [address] [facility] [place] [address] 08/01/2022 00:00:00 08/02/2022 05:55:30 [id number] [facility] [address] [facility] [place] [address] 09/22/2022 00:00:00 09/23/2022 06:22:57 [id number] [facility] [address] [place] [address] [place] [address] 11/03/2022 00:00:00 11/04/2022 05:38:47 [id number] Jimena Granados MD [facility] [address] [place] [address] [place] [address] 01/17/2023 14:51:42 01/17/2023 15:29:40 Fatigue 09078990 R53.83 Post-acute COVID-19 1119 863172 U09.9 Wait it out. Take vit C and get plenty of rest. Stay active. [id number] Jimena Granados MD [facility] [address] [place] [address] [place] [address] 02/28/2023 14:20:48 02/28/2023 14:52:19 Dizziness 274171230 R42 Takes meclizine a lot. 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 D/c the escitalopr am. F/u in 6 weeks. [id number] Jimena Granados MD [place] [id number] [facility] [place] [address] 06/13/2023 13:53:48 06/13/2023 14:20:27 Mixed anxiety and depressive disorder 222530707 F41.8 Will increase fluoxetine to 2 caps daily. Is bored. Dizziness of unknown cause 457826669 R42 Has dementia too. Hypothyroidism 73129721 E03.9 Hyponatremia 65314004 E8 7.1 Health Concerns Section Related Observation LastModified by Organization Detai ls LastModified Time None Recorded Concern Status LastModified by Organization Details LastModified Time None Recorded Advance Directives Directive None Recorded Payers Encounter Date Sequence Insurance Name Policy Number Policy Blanco Covered Member ID Blanco Member ID Guarantor Name 01/17/2023 1 [facility] (MEDICARE REPLACEMENT/A DVANTAGE - HMO) [id number] Aria E Newmark [id number] Aria Newmark 02/28/2023 1 [facility] (MEDICARE REPLACEMENT/A DVANTAGE - HMO) [id number] Aria E Newmark [id number] Aria Newmark 03/21/2023 1 [facility] (MEDICARE REPLACEMENT/A DVANTAGE - HMO) [id number] Aria E Newmark [id number] Aria Newmark 05/02/2023 1 [facility] (MEDICARE REPLACEMENT/A DVANTAGE - HMO) [id number] Aria E Newmark [id number] Aria Newmark 06/13/2023 1 [facility] (MEDICARE REPLACEMENT/A DVANTAGE - HMO) [id number] Aria Moon [id number] Aria Moon Notes Date Note Type Note Provider Name and Address Organization Details Recorded Time 01/17/2023 text/html Here today c/o COVID and does not feel well Is fatigued. Can not shake this. Had COVID x 5 weeks ago. Her appetite is down. No ambition. Spends most of time in bed. Jimena Granados MD [address] [place] [address], [place], [address], Viki 01/18/2023 06:21:46 02/28/2023 text/html Here today c/o tired all the time. She is depressed and fatigued. Just moved and misses her own place. She is not wanting to do counseling. Her life is upside down. Had a lot of friends. Getting more forgetful. Has dizziness all the time as per daughter. Jimena Granados MD [address] [address], [place], [address], Viki 02/28/2023 19:41:04 03/21/2023 text/html Here today c/o n ot feeling well. C/o fatigue and no energy. No body aches just weak and tired. This is how she felt when PMR started. She can not do things in last 2 weeks. Jimena Granados MD [address] [place] [address], [place], [address], Viki 03/21/2023 21:21:40 05/02/2023 text/html Here today not feeling well. Has not much energy. She is depressed and has no desire to do anything. She misses her home where she had lots of fun with her friends. She moved closer to her family. Has no friends here. She has been taking escitalopram and fluoxetine together and has been experiencing dizziness. Jimena Granados MD [address] [address], [place], [address], Viki 05/02/2023 20:08:14 06/13/2023 text/html Here today for f /u of last visit. Fell and has been dizzy lately. Taking meclizine and is drowsy. Can not understand why she has dizziness. When she walks has to stand up and get her balance. There is a place at [facility] to see a neurologist. Jimena Granados MD [address] [place] [address], [place], [address], [place] [facility] [place] [employer] [facility] 06/14/2023 06:18:23 OBGyn Episode No OBEpisode recorded.
--- OUTSIDE RECORDS SUMMARY | 2025-01-02 05:18 | XMS_ITS | Data Portability ---
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 1. Recurrent falls - continue physical therapy, add in seated weight training classes once she moves into assisted living 2. Hypothyroidism - IF fatigue worsens after lowering thyroid, she may need to go back to 100mcg 3. Hypercholesterolemia - Continue pravastatin 20mg - lab orders placed to recheck lipid panel 4. Depression/ Anxiety - doing well [email or web address] Not available 12/01/2023 14:02:37 Plan of Treatment Reminders Order Date Submit Date Provider Last Modified By Organization Details Last Modified Time Details Appointments None recorded. Lab collagen cross-linke d C-telopepti de (ctx), serum 2024 025 [facility], [address], [place], [address], 11:00:52 vitamin D, 25-hydroxy, total, serum 2024 025 [facility], [address], [place], [address], 11:00:49 hepatic function panel, serum 2024 025 [facility], [address], [place], [address], 5 11:00:45 hepatitis (A+B+C) panel, serum 2024 025 [facility], [address], [place], [address], 5 11:00:47 T3, free, serum or plasma 2024 025 [facility], [address], [place], [address], 5 11:00:46 TSH, serum or plasma 2024 025 [facility], [address], [place], [address], 5 11:00:50 T4, free, serum 2024 025 [facility], [address], [place], [address], 5 11:00:49 T3, reverse, serum 2024 025 [facility], [address], [place], [address], 5 11:00:52 unlisted lab - thyroid peroxidase and thyroglobul in antibodies 2024 025 [facility], [address], [place], [address], 5 11:00:51 lipase, serum or plasma 2024 025 [facility], [address], [place], [address], 5 11:00:43 amylase, serum or plasma 2024 025 [facility], [address], [place], [address], 5 11:00:48 iron + TIBC + ferritin, serum 2024 025 [facility], [address], [place], [address], 5 11:00:50 HbA1c (hemoglobin A1c), blood [address], [address] [facility], [place], [address], 4 13:31:59 Referral physical therapist referral - For Raiza/Jha Buchanan Martell maneuvers and vertibular re-educatio n 2023 024 [facility] [place], [facility] [address], [place], [address], 4 10:08:54 Procedures None recorded. Surgeries None recorded. Imaging None recorded. Medication Orders dronabinol 5 mg capsule 2023 024 [facility], [address] [place], [place], [id number], 5 10:51:33 fluoxetine 40 mg capsule 2023 024 [facility], [address] [place], [place], [id number], 5 14:38:29 ezetimibe 10 mg tablet 2023 024 [id number], [address], [place], [place], [id number], 17:11:04 Patient TargetsNo targets recorded. Patient Instructions Encounter Date Encounter Id Patient Instructions Last Modified By Organization Details Last Modified Time 12/01/2023 [id number] 1. Please send h er most recent colonoscopy, mammogram and bone density scan results: [email or web address] HEALTH MAINTENANCE: Get necessary vaccines at your local pharmacy. Covid & Flu: (once yearly) Mamm: biennial screening mammography for women aged 50 to 74 years Bone Density: all 65+ women, postmenopausal women younger than 65 years who are at increased risk of osteoporosis, as determined by a formal clinical risk assessment tool 2. schedule fasting labs at [facility] or outside [facility] facility. 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 She may want to further reduce the synthroid dose Schedule Acupuncture with Елена to include [place] Scalp Acupuncture for dizziness and tinnitus, schedule 3 sessions a week for 2 weeks and then decide if you'd like to continue Improving Metabolism, Memory, Cholesterol, and Inflammation - Continue to avoid gluten/wheat products Goal: Reduce all dairy products, switch to vegan banana cinnamon ice cream, switch to coconut milk Goal: Include a non starchy vegetable with each meal, try for 2 to 3 servings a day Goal: Increase protein to 20 grams three times a day. You may include smoothies with protein powder Goal: Please change all carbohydrates to complex (brown) carbohydrates - focus on quinoa, buckwheat, amaranth, gluten free kit bread, and brown rice Goal: Please reduce potatoes and sweet potatoes Goal: Reduce sweets to 1 small serving of vegan banana cinnamon ice cream Add ezetimibe 10 mg to medications Improving Bone Health D3/K2 5000 iu a day Begin Pro Edson as directed (1 packet in the morning and 1 in the evening) [email or web address] Not available 01/10/2024 16:48:56 04/17/2024 [id number] Schedule: Extend ed with Con in late May or early June Please collect and send in Vibrant Total Tox Discuss with psychiatrist the possibility of using mirtazapine instead of fluoxetine Schedule Acupuncture with Елена to include [place]ut Scalp Acupuncture for dizziness and tinnitus, as well as [facility] for nausea schedule 3 sessions a week for 2 weeks and then decide if you'd like to continue (Komal, please print for Елена and assist in scheduling) Refer to [facility] [address] , [place] [address] for Raiza/vestibular Rehab Improving Metabolism, Memory, Cholesterol, and Inflammation - Continue to avoid gluten/wheat products Goal: Reduce all dairy products, switch to vegan banana cinnamon ice cream, switch to coconut milk Goal: Include a non starchy vegetable with each meal, try for 2 to 3 servings a day Goal: Increase protein to 20 grams three times a day. You may include smoothies with protein powder Goal: Please change all carbohydrates to complex (brown) carbohydrates - focus on quinoa, buckwheat, amaranth, gluten free kit bread, and brown rice Goal: Please reduce potatoes and sweet potatoes Goal: Reduce sweets to 1 small serving of vegan banana cinnamon ice cream ezetimibe 10 mg to medications Begin CBD 10 mg once to twice a day Improving Sleep Cycle and Wake Cycle Consider using sound machine - either white or brown noise - to balance ringing Consider hearing aids Be sure to walk several times a day Use a Full Spectrum Light (15 to 20,000 lux) for 1 hour every morning Assisted Living Support: Check daily blood pressures, check orthostatics once a week Check daily weights Please bring three meals and 2 snacks a day and track food intake Please dispense daily medications and supplements Please turn on and off the Full Spectrum light (on when delivering breakfast and morning medications, off an hour later) Improving Bone Health D3/K2 5000 iu a day Begin Pro Edson as directed (1 packet in the morning and 1 in the evening) SUpplements: Pro Edson - 1 pack in the morning and 1 pack at night D3/K2 5000 iu a day Monopure 1 a day CBD 10 mg 1 twice a day [email or web address] Not available 04/17/2024 15:29:18 06/06/2024 [id number] Schedule: Extend ed with Con in late May or early September Improving Metabolism, Memory, Cholesterol, and Inflammation - Continue to avoid gluten/wheat products Goal: Reduce all dairy products, switch to vegan banana cinnamon ice cream, switch to coconut milk Goal: Include a non starchy vegetable with each meal, try for 2 to 3 servings a day BE sure daily meals include total protein to 60 grams a day Goal: Please change all carbohydrates to complex (brown) carbohydrates - focus on quinoa, buckwheat, amaranth, gluten free kit bread, and brown rice Goal: Please reduce potatoes and sweet potatoes Goal: Reduce sweets to 1 small serving of vegan banana cinnamon ice cream ezetimibe 10 mg to medications Begin Dronabinol for appetite support Improving Sleep Cycle and Wake Cycle Consider using sound machine - either white or brown noise - to balance ringing Consider hearing aids Be sure to walk several times a day Use a Full Spectrum Light (15 to 20,000 lux) for 1 hour every morning, link it to a timer Assisted Living Support: Check daily MANUAL blood pressures, may stop orthostatics Check daily weights Please bring three meals and 2 snacks a day and track food intake Please dispense daily medications and supplements Reduce LIghthededness Use a rollator Schedule Acupuncture with Елена to include Yakut Scalp Acupuncture for dizziness and tinnitus, as well as [facility] for nausea schedule 3 sessions a week for 2 weeks and then decide if you'd like to continue 1. Be careful and rise slowly 2. Increase fluid intake to 60 ounces a day 3. Begin Truadapt 1 in the morning and 1 at noon 4. If no improvement add Spectralyte 1 dropperful to water in the morning Improving Bone Health D3/K2 5000 iu a day Begin Pro [place] as directed (1 packet in the morning and 1 in the evening) SUpplements: Pro Edson - 1 pack in the morning and 1 pack at night D3/K2 5000 iu a day Monopure 1 a day Truadapt 1 in the morning and in the early afternoon Spectralyte 1 dropperful in water a day [email or web address] Not available 06/06/2024 17:00:24 12/24/2024 [id number] Schedule: MARTY fan APN in January 2025 Non fasting labs ordered on 12/24/24; will be completed at an outside [facility]. Follo up phone call after labs return Improving Metabolism, Memory, Cholesterol, and Inflammation - Continue to avoid gluten/wheat products Goal: Reduce all dairy products, switch to vegan banana cinnamon ice cream, switch to coconut milk Goal: Include a non starchy vegetable with each meal, try for 2 to 3 servings a day BE sure daily meals include total protein to 60 grams a day Goal: Please change all carbohydrates to complex (brown) carbohydrates - focus on quinoa, buckwheat, amaranth, gluten free kit bread, and brown rice Goal: Please reduce potatoes and sweet potatoes Goal: Reduce sweets to 1 small serving of vegan banana cinnamon ice cream ezetimibe 10 mg to medications Improving Sleep Cycle and Wake Cycle Consider using sound machine - either white or brown noise - to balance ringing Consider hearing aids Be sure to walk several times a day Use a Full Spectrum Light (15 to 20,000 lux) for 1 hour every morning, link it to a timer Assisted Living Support: Please bring three meals and 2 snacks a day and track food intake Please dispense daily medications and supplements Reduce LIghtheadedness Use a rollator 1. Be careful and rise slowly 2. Increase fluid intake to 60 ounces a day 3. Begin Truadapt 1 in the morning and 1 at noon 4. If no improvement add Spectralyte 1 dropperful to water in the morning Improving Bone Health D3/K2 5000 iu a day Begin Pro [place] as directed (1 packet in the morning and 1 in the evening) Supplements: Pro Edson - 1 pack in the morning and 1 pack at night D3/K2 5000 iu a day Monopure 1 a day Truadapt 1 in the morning and in the early afternoon Spectralyte 1 dropperful in water a day [email or web address] Not available 12/24/2024 10:59:54 Reason for Referral Physical Therapist Referral for Benign paroxysmal positional vertigo For Raiza/Jha Buchanan Bazine maneuvers and vertibular re-education Referring Physician: Con Chapa, Family Medicine, Encounter Date: 04/17/2024 Results Created Date Observation Date Name Description Value Unit Range Abnormal Flag Note LastModifiedBy Organization Detail LastModifiedTime 12/01/19 24 12/01/2023 HbA1c (hemo globi n A1c), blood HbA1c 4.6 Not Available [facility] [address] , [place], [address], 12/01/2023 12:53:44 12/27/19 24 01/05/2024 ADVAN NEIL LIPID PNL W/INF LAMMA TION, CARDI O IQ(R) cholesterol, total 192 mg/dL <200 Not Available [address] [address] [place], [address], 01/05/2024 17:45:57 12/27/19 24 01/05/2024 ADVAN NEIL LIPID PNL W/INF LAMMA TION, CARDI O IQ(R) HDL cholesterol 61 mg/dL >49 Not Available [facility] [email or web address] [facility] [address] [place], [address], 01/05/2024 17:45:57 12/27/19 24 01/05/2024 ADVAN NEIL LIPID PNL W/INF LAMMA TION, CARDI O IQ(R) triglyceride s 170 mg/dL <150 high Not Available [address] [address] [place], [address], 01/05/2024 17:45:57 12/27/19 24 01/05/2024 ADVAN NEIL LIPID PNL W/INF LAMMA TION, CARDI O IQ(R) LDL-choleste rol 102 mg/dL _(chana c) <100 high Ambika able range <100 mg/dL for prima ry preve ntion ; <70 mg/dL for patie nts with CHD or diabe tic patie nts with >= 2 CHD risk facto rs. LDL-C is now calcu lated using the SmartAsset calcu latio n, which is a valid ated novel metho d provi ding clinton r accur acy than the Fried nilesh equat ion in the estim ation of LDL-C . Arely sierra SS et al. SYEDA. 2013; 310(1 9): 2061- 2068 (http ://ed ольгаati on.Qu Jani abbasi Screenmailer. com/f aq/FA Q164) LDL-C is now calcu lated using the SmartAsset calcu latio n, which is a valid ated novel metho d provi ding clinton r accur acy than the Fried nilesh equat ion in the estim ation of LDL-C . Arely n SS et al. SYEDA. 2013; 310(1 9): 2061- 2068 (http ://ed ucati on.Lashanda lópezBabybe. com/f aq/FA Q164) Not Available [address] [address] [place], [address], 01/05/2024 17:45:57 12/27/19 24 01/05/2024 ADVAN NEIL LIPID PNL W/INF LAMMA TION, CARDI O IQ(R) chol/HDLC ratio 3.1 calc <5.0 Not Available [address], [address], 01/05/2024 17:45:57 12/27/19 24 01/05/2024 ADVAN NEIL LIPID PNL W/INF LAMMA TION, CARDI O IQ(R) non HDL cholesterol 131 mg/dL _(chana c) <130 high For patie nts with diabe frieda plus 1 major ASCVD risk facto r, treat ing to a non-H DL-C goal of <100 mg/dL (LDL- C of <70 mg/dL ) is consi dered a thera peuti c optio n. For patie nts with diabe frieda plus 1 major ASCVD risk facto r, treat ing to a non-H DL-C goal of <100 mg/dL (LDL- C of <70 mg/dL ) is consi dered a thera peuti c optio n. Not Available [address] [address] [facility] , [place], [address], 01/05/2024 17:45:57 12/27/19 24 01/05/2024 ADVAN NEIL LIPID PNL W/INF LAMMA TION, CARDI O IQ(R) LDL particle number 1548 nmol/ L <1138 high Relat blanca Risk: Optim al <1138 ; Moder ate 1138- 1409; High >1409 . Male and Femal e Refer ence Range : 1016 to 2185 nmol/ L. Not Available [address] [address] [place], [address], 01/05/2024 17:45:57 12/27/19 24 01/05/2024 ADVAN NEIL LIPID PNL W/INF LAMMA TION, CARDI O IQ(R) LDL small 383 nmol/ L <142 high Relat blanca Risk: Optim al <142; Moder ate 142-2 19; High >219. Male Refer ence Range : 123 to 441 nmol/ L; Femal e Refer ence Range : 115 to 386 nmol/ L. Not Available [facility] [address] [place], [place] [address], [place], [address], 01/05/2024 17:45:57 12/27/1901/05/2024 ADVAN NEIL LIPID PNL W/INF LAMMA TION, CARDI O IQ(R) LDL medium 326 nmol/ L <215 high Relat blanca Risk: Optim al <215; Moder ate 215-3 01; High >301. Male Refer ence Range : 167 to 485 nmol/ L; Femal e Refer ence Range : 121 to 397 nmol/ L. Not Available [facility] [address], [address], 01/05/2024 17:45:57 12/27/1901/05/2024 ADVAN NEIL LIPID PNL W/INF LAMMA TION, CARDI O IQ(R) HDL large 5752 nmol/ L >6729 low Relat blanca Risk: Optim al >6729 ; Moder ate 6729- 5353; High <5353 . Male Refer ence Range : 4334 to 90263 nmol/ L; Femal e Refer ence Range : 5038 to 08235 nmol/ L. Not Available [facility] [address] [place], [address], 01/05/2024 17:45:57 12/27/1901/05/2024 ADVAN NEIL LIPID PNL W/INF LAMMA TION, CARDI O IQ(R) LDL pattern B patte rn A abnormal Relat blanca Risk: Optim al Patte rn A; High Patte rn B. Refer ence Range : Patte rn A. Not Available [facility] [address] [place], [address], 01/05/2024 17:45:57 12/27/19 24 01/05/2024 ADVAN NEIL LIPID PNL W/INF LAMMA TION, CARDI O IQ(R) LDL peak size 212.7 angst rom >222.9 low This test was devel oped and its sneha tical perfo rmanc e addy cteri stics have been deter mined by [facility] [place] [facility]. It has not been clear ed or appro ravinder by the U.S. Food and Drug Admin istra tion. This assay has been valid ated pursu ant to the CLIA regul ation s and is used for clini chana purpo ses. Relat blanca Risk: Optim al >222. 9; Moder ate 222.9 -217. 4; High <217. 4. Male and Femal e Refer ence Range : 216 to 234.3 Angst rom. Adult cardi ovasc ular event risk categ ory cut point s (opti mal, moder ate, high) are based on an adult [place]. refer ence popul ation plus two large cohor t study popul ation s. Assoc iatio n betwe en lipop rotei n subfr actio ns and cardi ovasc ular event s is based on Nany clemons et al. ATVB. 2009; 29:19 75. For addit ional infor antoine zheng refer to http: //[facility] Hair stDia gnost ics.c om/fa q/FAQ 134 (This link is being provi ded for infor prashant nal/e ducat ional purpo ses only. ) Not Available [facility] [address] [address], [place], [address], 01/05/2024 17:45:57 12/27/19 24 01/05/2024 ADVAN NEIL LIPID PNL W/INF LAMMA TION, CARDI O IQ(R) apolipoprote in B 92 mg/dL <90 high Risk: Optim al <90 mg/dL ; Moder ate 90-11 9 mg/dL ; High >= 120 mg/dL ; Cardi ovasc ular event risk categ ory cut point s (opti mal, moder ate, high) are based on Natio nal Lipid Assoc iatio n recom menda tions - Seng SHIN et al. J of Clin Lipid . 2015; 9: 129-1 69 and Arden FREDERICK et al. Endoc r Pract . 2017; 23(Patel ppl 2):1- 87. Not Available [facility] [address] [address] [place], [address], 01/05/2024 17:45:57 12/27/19 24 01/05/2024 ADVAN NEIL LIPID PNL W/INF LAMMA TION, CARDI O IQ(R) lipoprotein (A) 61 nmol/ L <75 Risk: Optim al <75 nmol/ L; Moder ate 75-12 5 nmol/ L; High >125 nmol/ L. Cardi ovasc ular event risk categ ory cut point s (opti mal, moder ate, high) are based on Aurelio Douglas. [facility] 2017; 69:69 2-711 . Not Available [facility] [address] [place], [address], 01/05/2024 17:45:57 12/27/19 24 01/05/2024 ADVAN NEIL LIPID PNL W/INF LAMMA TION, CARDI O IQ(R) hs CRP 2.9 mg/L <1.0 high The AHA/C DC Guide lines recom mend hs-CR P range s for ident ifyin g Relat blanca Cardi ovasc ular Risk in patie nts ages >17 years : <1.0 mg/L Lower Relat blanca Cardi ovasc ular Risk; 1.0-3 .0 mg/L [place] ge Relat blanca Cardi ovasc ular Risk; 3.1-1 0.0 mg/L Highe r Relat blanca Cardi ovasc ular Risk. For patie nts with highe r cardi ovasc ular risk, consi kyleigh retes ting in 1-2 weeks to exclu de a benig n trans ient eleva tion secon francisco to infec tion or infla mmati on from the basel ine CRP value . Persi stent eleva tions of >10.0 mg/L upon retes ting may be assoc iated with infec tion and infla mmati on. The AHA/C DC recom menda tions are based on Kyleighs on TA et al. Circu latio n. 2003; 107:4 99-51 1. For ages >17 Years : hs-CR P mg/L Risk Accor ding to AHA/C DC Guide lines <1.0 Lower relat blanca cardi ovasc ular risk. 1.0-3 .0 [place] ge relat blanca cardi ovasc ular risk. 3.1-1 0.0 Highe r relat blanca cardi ovasc ular risk. Consi kyleigh retes ting in 1 to 2 weeks to exclu de a benig n trans ient eleva tion in the basel ine CRP value secon francisco to infec tion or infla mmati on. >10.0 Persi stent eleva tion, upon retes ting, may be assoc iated with infec tion and infla mmati on. Not Available [facility] [address] [place], [address], 01/05/2024 17:45:57 12/27/19 24 01/05/2024 ADVAN NEIL LIPID PNL W/INF LAMMA TION, CARDI O IQ(R) LP pla2 activity 100 nmol/ min/m L <124 This test was mira lombardi and its sneha tical perfo rmanc e addy cteri stics have been deter mined by [facility] [place] [facility]. It has not been clear ed or appro ravinder by the U.S. Food and Drug Admin istra tion. This assay has been valid ated pursu ant to the CLIA regul ation s and is used for clini chana purpo ses. Relat blanca Risk: Optim al <=123 nmol/ min/m L; High >1 23 nmol/ min/m L. See Note 1 Note 1 This test was mira cohned and its sneha tical perfo rmanc e addy cteri stics have been deter mined by [facility]. It has not been clear ed or appro ravinder by the FDA. This assay has been valid ated pursu ant to the CLIA regul ation s and is used for clini chana purpo ses. Not Available [facility] [address], [address], 01/05/2024 17:45:57 12/27/19 24 01/05/2024 HOMOC YSTEI NE homocysteine 10.7 umol/ L <10.4 high Homoc ystei ne is incre ased by funct ional defic iency of folat e or vitam in B12. Testi ng for methy lmalo vicki acid diffe renti ates betwe en these defic ienci es. Other cause s of incre ased homoc ystei ne inclu de renal failu re, folat e antag onist s such as metho trexa te and pheny toin, and expos ure to nitro us oxide . Navi bullock J, et al., Roxy Inter n Med. 1999; 131(5 ):331 -9. Not Available [facility] [address], [address], 01/05/2024 17:45:57 12/27/19 24 01/05/2024 COMPR EHENS BLANCA METAB OLIC PANEL glucose 98 mg/dL 65-99 normal Fasti ng refer ence inter jaun Not Available [facility] [address], [address], 01/05/2024 17:45:58 12/27/19 24 01/05/2024 COMPR EHENS BLANCA METAB OLIC PANEL urea nitrogen (BUN) 9 mg/dL 7-25 normal Not Available [facility] [address], [address], 01/05/2024 17:45:58 12/27/19 24 01/05/2024 COMPR EHENS BLANCA METAB OLIC PANEL creatinine 0.76 mg/dL 0.60-1 .00 normal Not Available [address], [address], 01/05/2024 17:45:58 12/27/19 24 01/05/2024 COMPR EHENS BLANCA METAB OLIC PANEL eGFR 81 mL/mi n/1.7 3m2 > or = 60 normal Not Available [address], [address], 01/05/2024 17:45:58 12/27/19 24 01/05/2024 COMPR EHENS BLANCA METAB OLIC PANEL BUN/creatini ne ratio SEE NOTE: (calc ) 6-22 Not Repor kirsten: BUN and Creat inine are withi n refer ence range . Not Available [address], [address], 01/05/2024 17:45:58 12/27/19 24 01/05/2024 COMPR EHENS BLANCA METAB OLIC PANEL sodium 138 mmol/ L 135-14 6 normal Not Available [address], [address], 01/05/2024 17:45:58 12/27/19 24 01/05/2024 COMPR EHENS BLANCA METAB OLIC PANEL potassium 3.8 mmol/ L 3.5-5. 3 normal Not Available [address], [address], 01/05/2024 17:45:58 12/27/19 24 01/05/2024 COMPR EHENS BLANCA METAB OLIC PANEL chloride 104 mmol/ L 98-110 normal Not Available [address], [address], 01/05/2024 17:45:58 12/27/19 24 01/05/2024 COMPR EHENS BLANCA METAB OLIC PANEL carbon dioxide 23 mmol/ L 20-32 normal Not Available [address] [place], [address], 01/05/2024 17:45:58 12/27/19 24 01/05/2024 COMPR EHENS BLANCA METAB OLIC PANEL calcium 9.3 mg/dL 8.6-10 .4 normal Not Available [address], [address], 01/05/2024 17:45:58 12/27/19 24 01/05/2024 COMPR EHENS BLANCA METAB OLIC PANEL protein, total 6.6 g/dL 6.1-8. 1 normal Not Available [address], [address], 01/05/2024 17:45:58 12/27/19 24 01/05/2024 COMPR EHENS BLANCA METAB OLIC PANEL albumin 4.2 g/dL 3.6-5. 1 normal Not Available [address] [address], [place], [address], 01/05/2024 17:45:58 12/27/19 24 01/05/2024 COMPR EHENS BLANCA METAB OLIC PANEL globulin 2.4 g/dL_ (calc ) 1.9-3. 7 normal Not Available [address], [address], 01/05/2024 17:45:58 12/27/19 24 01/05/2024 COMPR EHENS BLANCA METAB OLIC PANEL albumin/glob ulin ratio 1.8 (calc ) 1.0-2. 5 normal Not Available [address], [address], 01/05/2024 17:45:58 12/27/19 24 01/05/2024 COMPR EHENS BLANCA METAB OLIC PANEL bilirubin, total 0.7 mg/dL 0.2-1. 2 normal Not Available [address], [address], 01/05/2024 17:45:58 12/27/19 24 01/05/2024 COMPR EHENS BLANCA METAB OLIC PANEL alkaline phosphatase 102 U/L 37-153 normal Not Available [address] [address] [place], [address], 01/05/2024 17:45:58 12/27/19 24 01/05/2024 COMPR EHENS BLANCA METAB OLIC PANEL AST 23 U/L 10-35 normal Not Available [facility] [address] [address] [place], [address], 01/05/2024 17:45:58 12/27/19 24 01/05/2024 COMPR EHENS BLANCA METAB OLIC PANEL ALT 21 U/L 6-29 normal Not Available [address] [address] [place], [address], 01/05/2024 17:45:58 12/27/19 24 01/05/2024 HEMOG LOBIN A1C hemoglobin A1C 5.0 %_of_ total _HGB <5.7 normal For the purpo se of scree elsa for the prese nce of diabe frieda: <5.7% Consi stent with the absen ce of diabe frieda 5.7-6 .4% Consi stent with incre ased risk for diabe frieda (pred iabet es) > or =6.5% Consi stent with diabe frieda This assay resul t is consi stent with a decre ased risk of diabe frieda. Curre ntly, no conse nsus exist s regar ana use of hemog lobin A1c for diagn osis of diabe frieda in child mio. Accor ding to Ameri can Diabe frieda Assoc iatio n (ADA) guide lines , hemog lobin A1c <7.0% repre sents optim al contr ol in non-p regna nt diabe tic patie nts. Diffe rent metri cs may apply to speci fic patie nt popul ation s. Stand ards of Medic al Care in Diabe frieda(A DA). This test was perfo rmed on the [facility] chon c503 platf orm. Effec tive , a flaco awad in test platf orms from the [facility] t[facility] to the Elliot chon c503 may have shift ed HbA1c resul ts rolf red to histo rical resul ts. Based on labor atory valid ation testi ng condu cted at [facility] , the Elliot platf orm relat blanca to the [facility] platf orm had an avera ge incre ase in HbA1c value of < or = 0.3%. This diffe rence is withi n accep kirsten varia bilit y estab lishe d by the Natio nal [employer] hemog lobin Stand ardiz ation Progr am. Note that not all indiv idual s will have had a shift in their resul ts and direc t rolf rison s betwe en histo rical and curre nt resul ts for testi ng condu cted on diffe rent platf orms is not recom justice d. Not Available [facility] [address] [place], [address], 01/05/2024 17:45:58 12/27/19 24 01/05/2024 CARDI O IQ(R) VITAM IN D, 25 HYDRO XY vitamin D, 25-oh, total 25.3 NG/mL >29.9 low This test was devel oped and its sneha tical perfo rmanc e addy cteri stics have been deter mined by [facility] [place] [facility]. It has not been clear ed or appro ravinder by the U.S. Food and Drug Admin istra tion. This assay has been valid ated pursu ant to the CLIA regul ation s and is used for clini chana purpo ses. Vitam in D, 25-Hy droxy repor ts fuentes ntrat ions of two commo n forms , 25-OH D2 and 25-OH D3. 25-OH D3 indic ates both endog enous produ ction and suppl ement ation . 25-OH D2 is an indic ator of exoge nous sourc es, such as diet or suppl ement ation . Thera py is based on measu remen t of Total 25-OH D, with level s <20 ng/mL indic ative of Vitam in D defic iency , while level s betwe en 20 ng/mL and 30 ng/mL sugge st insuf ficie ncy. Optim al level s are >=30 ng/mL . Vitam in D, 25-Hy droxy repor ts fuentes ntrat ions of two commo n forms , 25-OH D2 and 25-OH D3. 25-OH D3 indic ates both endog enous produ ction and suppl ement ation . 25-OH D2 is an indic ator of exoge nous sourc es, such as diet or suppl ement ation . Thera py is based on measu remen t of Total 25-OH D, with level s <20 ng/mL indic ative of Vitam in D defic iency , while level s betwe en 20 ng/mL and 30 ng/mL sugge st insuf ficie ncy. Optim al level s are > or = 30 ng/mL . Not Available [facility] [address] [place], [address], 01/05/2024 17:45:59 12/27/19 24 01/05/2024 CARDI O IQ(R) VITAM IN D, 25 HYDRO XY vitamin D, 25-oh, D3 25.3 NG/mL This test was devel oped and its sneha tical perfo rmanc e addy cteri stics have been deter mined by [facility]. It has not been clear ed or appro ravinder by the FDA. This assay has been valid ated pursu ant to the CLIA regul ation s and is used for clini chana purpo ses. Not Available [facility] [address] [place], [address], 01/05/2024 17:45:59 12/27/19 24 01/05/2024 CARDI O IQ(R) VITAM IN D, 25 HYDRO XY vitamin D, 25-oh, D2 <1.0 NG/mL This test was devel oped and its sneha tical perfo rmanc e addy cteri stics have been deter mined by [facility]. It has not been clear ed or appro ravinder by the FDA. This assay has been valid ated pursu ant to the CLIA regul ation s and is used for clini chana purpo ses. Not Available [facility] [address] [address] [place], [address], 01/05/2024 17:45:59 12/27/19 24 01/05/2024 TSH TSH 0.03 mIU/L 0.40-4 .50 low Not Available [facility] [address] [address] [place], [address], 01/05/2024 17:45:59 12/27/19 24 01/05/2024 T4, FREE T4, free 1.9 NG/dL 0.8-1. 8 high Not Available [facility] [address], [address], 01/05/2024 17:45:59 12/27/19 24 01/05/2024 T3, FREE T3, free 3.8 pg/mL 2.3-4. 2 normal Not Available [address] [address] [place], [address], 01/05/2024 17:46:00 12/27/19 24 01/05/2024 T3 REVER SE, LC/MS /MS T3 reverse, lc/MS/MS 20 NG/dL 8-25 This test was devel oped and its sneha tical perfo rmanc e addy cteri stics have been deter mined by [facility]. It has not been clear ed or appro ravinder by FDA. This assay has been valid ated pursu ant to the CLIA regul ation s and is used for clini chana purpo ses. Not Available [facility] [address] [address] [place], [address], 01/05/2024 17:46:00 12/27/19 24 01/05/2024 CBC (INCL UDES DIFF/ PLT) white blood cell count 6.3 thous and/u L 3.8-10 .8 normal Not Available [address], [address], 01/05/2024 17:46:01 12/27/19 24 01/05/2024 CBC (INCL UDES DIFF/ PLT) red blood cell count 4.40 sujit on/uL 3.80-5 .10 normal Not Available [address], [address], 01/05/2024 17:46:01 12/27/19 24 01/05/2024 CBC (INCL UDES DIFF/ PLT) hemoglobin 14.7 g/dL 11.7-1 5.5 normal Not Available [address], [address], 01/05/2024 17:46:01 12/27/19 24 01/05/2024 CBC (INCL UDES DIFF/ PLT) hematocrit 43.8 % 35.0-4 5.0 normal Not Available [address], [address], 01/05/2024 17:46:01 12/27/19 24 01/05/2024 CBC (INCL UDES DIFF/ PLT) MCV 99.5 fL 80.0-1 00.0 normal Not Available [address], [address], 01/05/2024 17:46:01 12/27/19 24 01/05/2024 CBC (INCL UDES DIFF/ PLT) MCH 33.4 pg 27.0-3 3.0 high Not Available [address], [address], 01/05/2024 17:46:01 12/27/19 24 01/05/2024 CBC (INCL UDES DIFF/ PLT) MCHC 33.6 g/dL 32.0-3 6.0 normal Not Available [address], [address], 01/05/2024 17:46:01 12/27/19 24 01/05/2024 CBC (INCL UDES DIFF/ PLT) RDW 12.6 % 11.0-1 5.0 normal Not Available [address], [address], 01/05/2024 17:46:01 12/27/19 24 01/05/2024 CBC (INCL UDES DIFF/ PLT) platelet count 193 thous and/u L 140-40 0 normal Not Available [address], [address], 01/05/2024 17:46:01 12/27/19 24 01/05/2024 CBC (INCL UDES DIFF/ PLT) MPV 10.2 fL 7.5-12 .5 normal Not Available [address], [address], 01/05/2024 17:46:01 12/27/19 24 01/05/2024 CBC (INCL UDES DIFF/ PLT) absolute neutrophils 3711 cells /uL 1500-7 800 normal Not Available [address], [address], 01/05/2024 17:46:01 12/27/19 24 01/05/2024 CBC (INCL UDES DIFF/ PLT) absolute lymphocytes 1751 cells /uL 850-39 00 normal Not Available [address], [address], 01/05/2024 17:46:01 12/27/19 24 01/05/2024 CBC (INCL UDES DIFF/ PLT) absolute monocytes 536 cells /uL 200-95 0 normal Not Available [address], [address], 01/05/2024 17:46:01 12/27/19 24 01/05/2024 CBC (INCL UDES DIFF/ PLT) absolute eosinophils 271 cells /uL 15-500 normal Not Available [facility] [address], [address], 01/05/2024 17:46:01 12/27/19 24 01/05/2024 CBC (INCL UDES DIFF/ PLT) absolute basophils 32 cells /uL 0-200 normal Not Available [facility] [address], [address], 01/05/2024 17:46:01 12/27/19 24 01/05/2024 CBC (INCL UDES DIFF/ PLT) neutrophils 58.9 % normal Not Available [facility] [address], [address], 01/05/2024 17:46:01 12/27/19 24 01/05/2024 CBC (INCL UDES DIFF/ PLT) lymphocytes 27.8 % normal Not Available [address], [address], 01/05/2024 17:46:01 12/27/19 24 01/05/2024 CBC (INCL UDES DIFF/ PLT) monocytes 8.5 % normal Not Available [facility] [address], [address], 01/05/2024 17:46:01 12/27/19 24 01/05/2024 CBC (INCL UDES DIFF/ PLT) eosinophils 4.3 % normal Not Available [facility] [address], [address], 01/05/2024 17:46:01 12/27/19 24 01/05/2024 CBC (INCL UDES DIFF/ PLT) basophils 0.5 % normal Not Available [address], [address], 01/05/2024 17:46:01 12/27/19 24 01/05/2024 MOOSE TIN ferritin 60 NG/mL 16-288 normal Not Available [facility] [address] [place], [address], 01/05/2024 17:46:01 12/27/19 24 01/05/2024 VITAM IN B12 vitamin B12 605 pg/mL 200-11 00 normal Not Available [facility] [address] [place], [address], 01/05/2024 17:46:02 12/27/19 24 01/05/2024 C TELOP EPTID E (CTX) C telopeptide (ctx) 647 pg/mL Refer ence Range : NOT ESTAB LISHE D Adult Femal e Refer ence Range s for C-Tel opept fatou (CTx) : 18-29 years : 64-64 0 pg/mL 30-39 years : 60-65 0 pg/mL 40-49 years : 50-46 5 pg/mL >49 years : Not Estab lishe d No refer ence range is provi ded for postm enopa usal women becau se of the incre ased rate of bone turno lay post- menop ause. It is recom justice d that resul ts for postm enopa usal women be rolf red to the preme nopau rosa refer ence range as this will give a clinton r indic ation of their rate of bone loss. For addit ional infor antoine zheng e refer to http: //chapis eliasque stdia gnost ics.c om/fa q/FAQ (This link is being provi ded for infor prashant nal/e ducat ional purpo ses only. ) Not Available [facility] [address] [place], [address], 01/05/2024 17:46:02 12/27/19 24 01/05/2024 INSUL IN insulin 11.0 uIU/m L normal Refer ence Range < or = 18.4 Risk: Optim al < or = 18.4 Moder ate NA High >18.4 Adult cardi ovasc ular event risk categ ory cut point s (opti mal, moder ate, high) are based on Insul in Refer ence Inter jaun studi es perfo rmed at [facility] in 2021. Not Available [facility] [address] [place], [address], 01/05/2024 17:46:03 12/27/19 24 01/05/2024 CORTI BECK, A.M. cortisol, A.M. 28.0 mcg/d L high Refer ence Range 8 a.m. (7-9 a.m.) Speci men: 4.0-2 2.0 Not Available [facility] [address] [address], [place], [address], 01/05/2024 17:46:03 12/27/19 24 01/05/2024 MAGNE SIUM, RBC magnesium, RBC 5.1 mg/dL 4.0-6. 4 This test was devel oped and its sneha tical perfo rmanc e addy cteri stics have been deter mined by [facility]. It has not been clear ed or appro ravinder by the FDA. This assay has been valid ated pursu ant to the CLIA regul ation s and is used for clini chana purpo ses. Not Available [facility] [address] [address], [place], [address], 01/05/2024 17:46:04 11/10/[address], head, w/wo contr ast No observ ation record ed. Not Available 2023 10:06:28 11/10/19 24 MRI, brain + brain stem, w/o contr ast No observ ation record ed. [email or web address] Not Available 2023 18:40:38 Result Notes None recorded. Problems Name Problem SNOMED Code Status Onset Date Resolution Date Notes Provider Name and Address Organization Details Recorded Time Dementia 76458944 Active 2023 Con Chapa MD [address], [place], [address], [facility] [employer] 15:50:14 Mario thyroiditis 83304385 Active 2023 Con Chapa MD [address], [place], [address], [place] [facility] 4 15:50:16 Hypothyroid ism 97155779 Active [address], [place], [address], [place] [facility] 15:50:18 Osteoporosi s 40645776 Active [address], [place], [address], [place] [facility] 4 15:50:23 Polymyalgia rheumatica 21106921 Active [address], [place], [address], [place] [facility] 15:39:20 Recurrent stress incontinenc e Active [address], [place], [address], [place] [facility] 4 15:39:45 Depressive disorder 78539034 Active [address], [place], [address], [place] [facility] 4 15:39:57 Benign paroxysmal positional vertigo 354522035 Active [address], [place], [address], [place] [facility] 15:40:22 Fatigue 81227129 Active [address], [place], [address], [place] [facility] 15:40:35 Anxiety 36243197 Active [address], [place], [address], [place] [facility] 15:40:50 Hyperlipide keke 76591805 Active [address], [place], [address], [place] [facility] 4 15:41:02 Non-celiac gluten sensitivity 659812647 Active 2023 Shanthi Manning NP [address], [place], [address], [place] [facility] 4 15:41:26 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 Procedures Surgical History Date Name Laterality Status Provider Name and Address Organization Details Recorded Time 10/09/19 Date of Last Mammogram completed Neda Knowles [place] [facility] 10/27/2023 11:59:47 Dental Surgery completed Neda [place]les [place] [facility] 10/27/2023 12:00:04 Mammogram completed [place]eda [place] [email or web address] 10/27/2023 12:00:04 Colonoscopy [place]eda [place] [email or web address] 10/27/2023 12:00:04 Hysterectomy completed Nedapraveen Knowles [place] [facility] 10/27/2023 12:00:04 Imaging Results Imaging Date Name Status LastModified by [facility] Details LastModified Time 11/10/2023 CT, head, w/wo contrast completed [email or web address] Information not available 11/10/2023 10:06:28 11/10/2023 MRI, brain + brain stem, w/o contrast completed [email or web address] Information not available 12/20/2023 18:40:38 Procedure Notes None recorded. Medical Equipment None Reported. Allergies Allergen ID Allergen Name Allergen Category Reaction Reaction Severity Criticality Documentation Date Start Date Code Code System Note Provider Name and Address Organization Details Recorded Time 14901 Product containin g penicilli n (product) medicatio n other Not available Not available 10/27/2023 34698 8001 SNOMED Neda Knowles null, [facility] 11:59:42 48991 lactose food,medi cation other Not available Not available 10/27/2023 6211 RxNorm Neda Knowles null, [facility] 11:59:42 27185 wheat preparati on food,medi cation other Not available Not available 10/27/2023 49085 52 RxNorm Neda Knowles null, [facility] 11:59:42 Medications Name Sig Start Date Stop Date Status Note LastModified by Organization Details LastModified Time DMSA 600 mg Take 1 capsule the night before you collect the sample 01/25 completed Standard at [facility] is to order 20 mg/kg for patient Not Available Not Available Not Available dmsa 600mg capsule #[id number] TAKE 1 CAPSULE THE NIGHT BEFORE YOU COLLECT THE SAMPLE 01/25 completed Not Available Not Available Not Available fluoxetin e 40 mg capsule Take 1 capsule every day by oral route for 90 days. active Not Available Not Available No t Available prednison e 10 mg tablet TAKE 1 TABLET BY MOUTH EVERY DAY FOR 14 DAYS 12/01 completed Not Available Not Available Not Available donepezil 5 mg tablet Take 1 tablet every day by oral route. 06/06 completed Not Available Not Available Not Available dronabino l 5 mg capsule Take 1 capsule by oral route for 30 days. 12/24 completed Not Available Not Available Not Available donepezil 10 mg tablet active Not Available Not Available Not Available levothyro xine 25 mcg tablet 12/01 completed Not Available Not Available Not Available levothyro xine 75 mcg tablet Take 1 tablet every day by oral route. 01/28 completed Not Available Not Available Not Available levothyro xine 100 mcg tablet TAKE 1 TABLET BY MOUTH ONCE DAILY WITH A 0.025MG TABLET FOR A TOTAL OF 0.125MG DAILY. 12/01 completed Not Available Not Available Not Available alprazola m 0.25 mg tablet TAKE 1 TABLET BY MOUTH EVERY DAY NEEDED 01/25 completed Not Available Not Available Not Available meclizine 25 mg tablet TAKE 1 TABLET BY MOUTH THREE TIMES DAILY NEEDED 12/01 completed Not Available Not Available Not Available levothyro xine 50 mcg tablet TAKE ONE TABLET BY MOUTH DAILY 2024 active [facility]IS 12/24/24. NOV not schedule d. Refill for 6 months. -or Not Available Not Available Not Available ibuprofen 400 mg tablet active Not Available Not Available Not Available pravastat in 20 mg tablet TAKE ONE TABLET BY MOUTH ONCE DAILY 2024 active [facility] 12/24/24. NOV not schedule d. Refill for 6 months. -or Not Available Not Available Not Available methylpre dnisolone 4 mg tablets in a dose pack FOLLOW PACKAGE DIRECTIO NS 12/01 completed Not Available Not Available Not Available fluoxetin e 20 mg capsule TAKE 1 CAPSULE BY MOUTH EVERY DAY IN THE MORNING 04/17 completed Not Available Not Available Not Available B-complex with vitamin C tablet TAKE ONE TABLET BY MOUTH DAILY 2024 active [facility] 12/24/24. NOV not schedule d. Refill for 6 months. -or Not Available Not Available Not Available escitalop roberta 20 mg tablet TAKE 1 TABLET BY MOUTH EVERY DAY 12/01 completed Not Available Not Available Not Available ezetimibe 10 mg tablet TAKE ONE TABLET BY MOUTH DAILY 2024 active [facility] 12/24/24. NOV not schedule d. Refill for 6 months. -or Not Available Not Available Not Available memantine 10 mg tablet TAKE 1 TABLET BY MOUTH TWICE DAILY 12/01 completed Not Available Not Available Not Available chlorhexi dine gluconate 0.12 % mouthwash SWISH AND SPIT 15 ML BY MOUTH TWICE DAILY active Not Available Not Available No t Available calcium 600 mg (as carbonate )-vitamin D3 10 mcg (400 unit) tablet TAKE ONE TABLET BY MOUTH TWICE DAILY 2024 active [facility] 12/24/24. NOV not schedule d. Refill for 6 months. -or Not Available Not Available Not Available Vitamin D3 50 mcg (2,000 unit) tablet TAKE TWO TABLETS BY MOUTH DAILY 2024 active [facility] 12/24/24. NOV not schedule d. Refill for 6 months. -or Not Available Not Available Not Available Fish Oil 1,000 mg (120 mg-180 mg) capsule Duplicat ed script 2023 active MARIS 06/06/24. NOV not schedule d. Refill for 5 months. -or Not Available Not Available Not Available Tab-A-Vit e 400 mcg tablet TAKE ONE TABLET BY MOUTH DAILY 2024 active [facility]IS 12/24/24. NOV not schedule d. Refill for 6 months. -or Not Available Not Available Not Available vitamin D2 20 mcg-vitam in K1 120 mcg/4 drops oral active [facility] 06/06/24. NOV not schedule d. Refill for 5 months. -or Not Available Not Available Not Available Vitals Date Recorded Body height Body mass index (BMI) Body weight Body temperature Heart rate Oxygen saturation Oxygen saturation in Arterial blood by Pulse oximetry Systolic blood pressure Diastolic blood pressure Provider Name and Address Organization Details Last Updated DateTime 4 162.56 cm 22.6 kg/m2 80950.4 g 98.2 [degF] 82 /min 97 % 97 % 151 mm[Hg] 80 mm[Hg] Janice Ferreira [facility] 4 12:38:51 Date Recorded Heart rate Heart rate Heart rate Respiratory rate Systolic blood pressure Diastolic blood pressure Systolic blood pressure Diastolic blood pressure Systolic blood pressure Diastolic blood pressure Provider Name and Address Organization Details Last Updated DateTime 4 76 /min 82 /min 95 /min 18 /min 96 mm[Hg] 70 mm[Hg] 110 mm[Hg] 76 mm[Hg] 110 mm[Hg] 75 mm[Hg] Shanthi Manning , MIKE [address] [facility], [place], [address], [facility] 4 13:21:36 Date Recorded Body height Body mass index (BMI) Body weight Heart rate Oxygen saturation Oxygen saturation in Arterial blood by Pulse oximetry Systolic blood pressure Diastolic blood pressure Provider Name and Address Organization Details Last Updated DateTime 4 162.56 cm 22.7 kg/m2 68871.5 4 g 82 /min 97 % 97 % 95 mm[Hg] 70 mm[Hg] Miladys Max [facility] 16:01:06 Date Recorded Body height Provider Name an d Address Organization Details Last Updated DateTime 06/06/2024 162.56 cm Krystle [address] , [place], [address], [facility] 06/06/2024 16:08:24 Social History Question Answer Notes LastModified by Organizat ion Details LastModified Time Tobacco Smoking Status Never Smoker Neda Knowles ashwin, [facility] 10/27/2023 11:59:58 What Is Your Level Of Alcohol Consumption? Occasional Information not available 10/27/2023 Have There Been Any Changes To Your Family Or Social Situation? Yes Information not available 10/27/2023 How Many Children Do You Have? 3 Information not available 10/27/2023 Do You Have Any Pets? Yes Information not available 10/27/2023 Do You Have Any Siblings? Yes Information not available 10/27/2023 Are There Any Smokers In Your House? Yes Information not available 10/27/2023 Sex: Unknown Functional Status None recorded. Mental Status None recorded. Family History Relationship Description Onset Age of this Age Resolved Age Notes LastModified by Organization Details LastModified Time Mother Myocardial infarction Not available 10/27 11:59:35 Mother Family history of stroke Not available 2023 11:59:35 Mother Mental disorder Not available 2023 11:59:35 Unspecified Relation Family history of malignant neoplasm Not available 2023 11:59:35 Maternal Grandmother Dementia Not available 10/27 11:59:35 Maternal Grandmother Mental disorder Not available 2023 11:59:35 Sister Dementia Not available 10/27/2023 11:59:35 Sister Diabetes mellitus Not available 2023 11:59:35 Sister Food intolerance Not available 10/09 11:59:35 Father Dementia [email or web address] Not available 10/27/2023 11:59:35 Medical History Condition Response Oral Steroids as Adult Y Hypothyroidism Y Depression Y Food intolerance Y Arthritis Y Back Injury Y High Cholesterol Y Autoimmune Disease Y Anxiety Y Back Pain Y Heart Murmur Y Dementia Y Urinary tract infections Y Gynecological History Statement/Question Response Did the pill agree with patient N Date of Last Mammogram 10/09/2021 Breast Tenderness, water retention, irri tability with 2nd half of cycle N control pills N Hormone Replacement Therapy Y Obstetrics History GPAL:G 0 P 0 0 0 0 Immunizations Vaccine Type Date Status Note Provider Nam e and Address Organization Details Recorded Time SARS-COV-2 (COVID-19) vaccine, UNSPECIFIED 1 completed Shanthi Manning NP [address], [place], [address], [facility] 11/14/2023 15:42:40 Influenza, MDCK, trivalent, PF 0 completed Shanthi Manning NP [address], [place], [address], [facility] 11/14/2023 15:43:11 pneumococcal polysaccharide PPV23 8 completed Shanthi Manning NP [address], [place], [address], [facility] 11/14/2023 15:43:49 Pneumococcal conjugate PCV 13 5 completed Shanthi Manning NP [address], [place], [address], [facility] 11/14/2023 15:45:47 pneumococcal polysaccharide PPV23 [address], [place], [address], [facility] 11/14/2023 15:46:19 SARS-COV-2 (COVID-19) vaccine, UNSPECIFIED 1 completed Shanthi Manning NP [address], [place], [id number], [place] 11/14/2023 15:47:04 SARS-COV-2 (COVID-19) vaccine, UNSPECIFIED completed Shanthi Manning NP [address] [place] [address], [phone], [facility] 11/14/2023 15:47:21 Past Encounters Encounter ID Performer Location Encounter Start Date Encounter Closed Date Diagnosis/Indication Diagnosis SNOMED-CT Code Diagnosis ICD10 Code Diagnosis Note [id number] Neda Knowles [address] [address] 10/27/2023 09:55:56 10/27/2023 12:01:12 [id number] Con Chapa MD [address] [address] 11/09/2023 15:23:46 11/10/2023 10:30:15 Dementia 76500545 F03.90 Mario thyroiditis 21 812045 E06.3 Hypothyroidism 93617993 E03.9 Osteoporosis 62803680 M8 1.0 Arterioscl erotic vascular disease 91360985 I70.90 [id number] Shanthi Manning NP [address] [address] 12/01/2023 11:47:43 12/01/2023 14:39:01 Adult health examination [id number] Z00.00 Recurrent falls 51707870 2 R29.6 Hypothyroidism 76653474 E03.9 Depressive disorder 3548 9007 F32.A [id number] Con Chapa MD [address] [address] 01/10/2024 15:23:06 01/10/2024 17:03:30 Dementia 74982484 F03.90 Mario thyroiditis 21 594746 E06.3 Hypothyroidism 53842961 E03.9 Osteoporosis 94193872 M8 1.0 Arterioscl erotic vascular disease 25184928 I70.90 [id number] Con Chapa MD [address] [address] 04/17/2024 14:31:27 04/17/2024 16:45:18 Dementia 71203715 F03.90 Mario thyroiditis 21 873014 E06.3 Hypothyroidism 73710811 E03.9 Osteoporosis 87615454 M8 1.0 Arterioscl erotic vascular disease 80427500 I70.90 Benign par oxysmal positional vertigo 286823091 H81.13 [id number] Con Chapa MD [address] [address] 06/06/2024 16:07:37 06/07/2024 12:32:33 Dementia 08362093 F03.90 Mario thyroiditis 21 833013 E06.3 Hypothyroidism 64870174 E03.9 Osteoporosis 37874438 M8 1.0 Arterioscl erotic vascular disease 94282221 I70.90 Benign par oxysmal positional vertigo 307098571 H81.13 Depressive disorder 3548 9007 F32.A Loss of appetite 3676571 6 R63.0 [id number] Con Chapa MD [address] [address] 12/24/2024 08:55:24 12/25/2024 12:14:31 Dementia 83110528 F03.90 Mario thyroiditis 21 228953 E06.3 Hypothyroidism 86941717 E03.9 Osteoporosis 01240674 M8 1.0 Arterioscl erotic vascular disease 72783633 I70.90 Benign par oxysmal positional vertigo 342558001 H81.13 Depressive disorder 3548 9007 F32.A Loss of appetite 5361166 6 R63.0 Pancreatitis 93884258 K8 5.90 Aspartate aminotransferase serum level above reference range 758239776 R74.01 Health Concerns Section Related Observation LastModified by Organization Detai ls LastModified Time None Recorded Concern Status LastModified by Organization Details LastModified Time None Recorded Advance Directives Directive None Recorded Payers Encounter Date Sequence Insurance Name Policy Number Policy Blanco Covered Member ID Blanco Member ID Guarantor Name 12/01/2023 2 [facility] (MEDICARE REPLACEMENT/A DVANTAGE - PPO) [id number] Aria Newmark [id number] Aria Newmark 12/01/2023 1 MEDICARE [place]: WPS Aria Newmark [id number] Aria Newmark 01/10/2024 2 [employer] (MEDICARE REPLACEMENT/A DVANTAGE - PPO) [id number] Aria Newmark [id number] Aria Newmark 01/10/2024 1 MEDICARE [place]: WPS Aria Newmark [id number] Aria Newmark 04/17/2024 2 [facility] (MEDICARE REPLACEMENT/A DVANTAGE - PPO) [id number] Aria Newmark [id number] Aria Newmark 04/17/2024 1 MEDICARE [place]: [place]PS Aria Newmark [id number] Aria Newmark 06/06/2024 2 [facility] (MEDICARE REPLACEMENT/A DVANTAGE - PPO) [id number] Aria Newmark [id number] Aria Newmark 06/06/2024 1 MEDICARE [place]: WPS Aria Newmark [id number] Aria Newmark 12/24/2024 2 [facility] (MEDICARE REPLACEMENT/A DVANTAGE - PPO) [id number] Aria Newmark [id number] Aria Newmark 12/24/2024 1 MEDICARE B-[place]: WPS Aria Newmark [id number] Aria Newmark Notes Date Note Type Note Provider Name and Address Organization Details Recorded Time 2023 text/h tml Aria is a 78 y/o F with PMH dementia, 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 Lives with her younger sister currently, but she is moving into [facility] assisted living in [place], [place] end of December. 1. Recurrent falls- neurologist stopped memantine and donzepril which seems to have helped, but sx have not completely resolved.2. Hypothyroidism- Dr Penn lowered synthroid from 100mcg to 75mcg based on recent labs, despite that Aria is still having fatigue3. Hypercholesterolemia- Continuing pravastatin 20mg4. Depression/ Anxiety- switched fluoxetine to night time to see if this is contributing to daytime falls- mood has been good and has not needed any xanax a. immunizations:all vaccines up to date b. screenings: COLONOSCOPY - unsure of last colonoscopyFamily Hx: DEXA - unsure of last scan MAMMOGRAM - unsure of last mammogram PAP - 2018 c. PHQ-9- d. Labs:- recent labs ordered by Dr. Chapa but she has not had a change to 2. Lifestyle:Diet:Exercise: very minimal because of the dizziness and frequent falls.Bowels:Stress: Shanthi Manning, TELEGRAPH REPEATER MECHANIC [address] [facility], [place], [address] , [facility] [place] - [employer] 14:03:56 2023 text/h tml [id number] yo F with decreasing memory, high cholesterol, back pain, hypothyroid, Mario's, osteoporosis GOALS:1. Improve mental and emotional wellbeing2. Work on dizziness - going to start vestibular therapy, eye tracking are off3. Improving memory fell about a week ago december 2023 Has had dizziness for a while, had been on Meclizine 3 times a day for 3 months for a very long time, so coming off a bitHas MCI - worseningCouple of significant fallsGetting ready to do vestibular therapy for Vertigo when she enters assisted livingDiscussed [place] Scalp Acupuncture with Елена PROVIDERS:Neuro: Dr Francy Luna: Dr Luther PMHX:Food intolerance: - gluten, diarrhea with dairy, gassyHeart Murmur: MVPHigh Cholesterol: - on pravastatinDementia: YesBack Pain: lower back pain, previously was doing exercises, had pulled a muscle in backUrinary tract infections: previously all the time, none n a while, dilated numerous timesArthritis: in lower back and fingersAutoimmune Disease: Mario'sAnxiety stateAtrial tachycardiaBronchiectasis without acute exacerbation 04/19/2010 - pastCough 04/19/2010 - pastdepression - medications helpHypothyroidismIdiopathic peripheral neuropathy - feet/toes are numb, long time, better without glutenmitral valve prolapseOsteoporosis - osteopeniaPolymyalgia rheumatica - Took a,long time to diagnose, fatigued, couldn't get out of bed, on steroids for a long period of timeScoliosisCOVID - decrease taste, Decemberizziness - since , now daily event, sometimes can't get out of bed, always with problems related to car sicknessFalls - hit head, hit face, since can't feel feet - they get tangled up in themselvesStress incontinencePVCsGERDleft hip painDilation of aortaatherosclerosis MEDICATIONS:alprazolam - intermittentlychlorhexidine gluconate - Ndonepezilfluoxetinemethylprednisolone - not currentpravastatinprednisone - not current meclizine (ANTIVERT) 12.5 mg tablet 12.5 mg. - stoppedRestasis 0.05 % emulsionescitalopram oxalate (LEXAPRO) 10 mg tablet escitalopram 10 mg tablet - stoppedTAKE 1/2 TABLET BY MOUTH TWICE DAILYfolic acid (FOLVITE) 1 mg tablet folic acid 1 mg tablet - not takingmemantine (NAMENDA) 10 mg Tablet memantine 10 mg tablet - increase to twice a daylevothyroxine (SYNTHROID) 75 mcg tablet Take 1 Tablet (75 mcg) by mouth daily in the morning. 30 - increase to 100 mcg ibuprofen (MOTRIN) 400 mg Oral tablet Take 400 mg by mouth every 6 hours as needed.multivitamin (DAILY-AN) Oral tablet Take 1 Tab by mouth daily.vitamin B complex (VITAMIN B COMPLEX) Oral Cap Take 1 Tab by mouth daily.Calcium-Cholecalciferol, D3, 600 mg(1,500mg) -400 unit Oral Chew Take 1 Tab by mouth 2 times daily. 1 Tab 1Cholecalciferol, Vitamin D3, (VITAMIN D-3) 2,000 unit Oral Tab Take 2 Caps by mouth daily. 1 Cap 1FISH OIL 1,000 mg Oral Cap Take 1 Cap by mouth 2 times daily. For lipids 1 Cap 1 ALLERGIES:lactosePCNwheat PSHX:HX BLADDER REPAIR - suspensionHX ANIKA AND BSOTummy Tuck at same timecolonoscopyCataract FHX:Mother - OR, Stroke, mental disorder, TIAs, alcoholic, massive smokersMaternal Grandmother - schizophrenia, dementiaUnspecified Relation - cancerSister - Lewy body dementia, DM, food intoleranceFather - dementia SOCIAL HISTORY:never smokedoccass alcohol3 children NUTRITION:b - toastL - snacksD -Gluten freeDoesn't eat meatno appetitesnacks often - yogurtLikes potatoes, sweet potatoesrare vegetblesEats starchy veg - potatoes, sweet potatoesSweets: ice cream, gluten free cookies - EXERCISE:< 1 /wk SLEEP:8 hrs, easy STRESS/RESILIENCY:01/16 - losing memory EXPOSURES:Abundant international travel TIMELINE: LABS Reviewed:12/2023t CHOL 192, HDL 61, TG 170, LDL 102, sdLDL 138, [id number], LDL B, LP(A) 61, hs CRP 2.9, homocysteine 10.7, CMP wnl, glu 98, GFR 81, HgA1c 5.0, D 25.3, TSH 0.03 L, FT4 1.9 H, FT3 3.8, CBC wnl, ferritin 60, B12 605, CTX 647, ins 11, cortisol 28 H, RBC mg 5.1, 06/14/2023lu 107, AST 42TSH 126, FT4 0.39 03/21/2023BC, CMP, TSH wnl 3CBC wnl, MCV 95.8GFR >60, glu 88AST 36, ALT 31 11/2022MRI Brain w/wo/CT scan:age related atrophysmall vessel ischemic changes 10/2022:levoscoliosis of lumbardextroscoliosis of lower thoracicMultilevel DDD, worse at L2-L3 2021:B hip osteoarthritisL glut tendinopathy with partial glut min tear, B partial hamstring tears, left labral tear with chondrosis, B bursitis 3GFR 50, Glu 88, ALT 66, AST 73, Ca 10.3, PTH 28.6 2CBC wnl, MCV 98CMP: glu 108, GFR 59, ALT 55, AST63, Ca10.4D 37B12 898TSH 190 12/2020:ECHO:No stress induced ischemiabradycardic at restNormal LV function 09/2020:MRI Brain w/wo:no change: Atrophy, small vessel diseasemild mucous membrane thickening B ethmoid, rt mastoid, ant rt maxillary12/2018:CT Head wo:Atrophysmall vessel changes MSQ:41 >> Con Chapa MD [address], [place], [address] , [place] - [employer] 4 16:51:42 2023 text/h tml [id number] yo F with decreasing memory, high cholesterol, back pain, hypothyroid, Mario's, osteoporosis GOALS:1. Improve mental and emotional wellbeing2. Work on dizziness - going to start vestibular therapy, eye tracking are off3. Improving memory been dizzy for a while, has gotten worse againMeclizine had no effect, scopolamine patchstill falling alotlightheaded, no room spinningRequest blood pressures from assisted livingrequest staff to dispense medicationsRequest daily weightsrequest tracking foodKnows about health food - -but not keeping track of food very well and not hungryDiscussed CBD to help with appetiteSchedule with Елена for omani scalp acupuncture for dizziness and meridian for naseaudiscussed full spectrum light hearing is diminished, decreased higher toneringing in ears constantly Using a walker to help steady her, no falls recentlyDoing PT, OT, St on site Getting ready to do vestibular therapy for Vertigo when she enters assisted livingto bed at 8 to 9, wakes at 7 - can sleep all day PROVIDERS:Neuro: Dr Francy Luna: Dr Luther PMHX:Food intolerance: - gluten, diarrhea with dairy, gassyHeart Murmur: MVPHigh Cholesterol: - on pravastatinDementia: YesBack Pain: lower back pain, previously was doing exercises, had pulled a muscle in backUrinary tract infections: previously all the time, none n a while, dilated numerous timesArthritis: in lower back and fingersAutoimmune Disease: Mario'sAnxiety stateAtrial tachycardiaBronchiectasis without acute exacerbation 04/19/2010 - pastCough 04/19/2010 - pastdepression - medications helpHypothyroidismIdiopathic peripheral neuropathy - feet/toes are numb, long time, better without glutenmitral valve prolapseOsteoporosis - osteopeniaPolymyalgia rheumatica - Took a,long time to diagnose, fatigued, couldn't get out of bed, on steroids for a long period of timeScoliosisCOVID - decrease taste, Decemberizziness - since , now daily event, sometimes can't get out of bed, always with problems related to car sicknessFalls - hit head, hit face, since can't feel feet - they get tangled up in themselvesStress incontinencePVCsGERDleft hip painDilation of aortaatherosclerosis MEDICATIONS:alprazolam - intermittentlychlorhexidine gluconate - Ndonepezilfluoxetinemethylprednisolone - not currentpravastatinprednisone - not current meclizine (ANTIVERT) 12.5 mg tablet 12.5 mg. - stoppedRestasis 0.05 % emulsionescitalopram oxalate (LEXAPRO) 10 mg tablet escitalopram 10 mg tablet - stoppedTAKE 1/2 TABLET BY MOUTH TWICE DAILYfolic acid (FOLVITE) 1 mg tablet folic acid 1 mg tablet - not takingmemantine (NAMENDA) 10 mg Tablet memantine 10 mg tablet - increase to twice a daylevothyroxine (SYNTHROID) 75 mcg tablet Take 1 Tablet (75 mcg) by mouth daily in the morning. 30 - increase to 100 mcg ibuprofen (MOTRIN) 400 mg Oral tablet Take 400 mg by mouth every 6 hours as needed.multivitamin (DAILY-AN) Oral tablet Take 1 Tab by mouth daily.vitamin B complex (VITAMIN B COMPLEX) Oral Cap Take 1 Tab by mouth daily.Calcium-Cholecalciferol, D3, 600 mg(1,500mg) -400 unit Oral Chew Take 1 Tab by mouth 2 times daily. 1 Tab 1Cholecalciferol, Vitamin D3, (VITAMIN D-3) 2,000 unit Oral Tab Take 2 Caps by mouth daily. 1 Cap 1FISH OIL 1,000 mg Oral Cap Take 1 Cap by mouth 2 times daily. For lipids 1 Cap 1 ALLERGIES:lactosePCNwheat PSHX:HX BLADDER REPAIR - suspensionHX ANIKA AND BSOTummy Tuck at same timecolonoscopyCataract FHX:Mother - [place], Stroke, mental disorder, TIAs, alcoholic, massive smokersMaternal Grandmother - schizophrenia, dementiaUnspecified Relation - cancerSister - Lewy body dementia, DM, food intoleranceFather - dementia SOCIAL HISTORY:never smokedoccass alcohol3 children NUTRITION:b - toastL - snacksD -Gluten freeDoesn't eat meatno appetitesnacks often - yogurtLikes potatoes, sweet potatoesrare vegetblesEats starchy veg - potatoes, sweet potatoesSweets: ice cream, gluten free cookies - EXERCISE:< 1 /wk SLEEP:8 hrs, easy STRESS/RESILIENCY:01/16 - losing memory EXPOSURES:Abundant international travel TIMELINE: LABS Reviewed:12/2023t CHOL 192, HDL 61, TG 170, LDL 102, sdLDL 138, [id number], LDL B, LP(A) 61, hs CRP 2.9, homocysteine 10.7, CMP wnl, glu 98, GFR 81, HgA1c 5.0, D 25.3, TSH 0.03 L, FT4 1.9 H, FT3 3.8, CBC wnl, ferritin 60, B12 605, CTX 647, ins 11, cortisol 28 H, RBC mg 5.1, 06/14/2023lu 107, AST 42TSH 126, FT4 0.39 03/21/2023BC, CMP, TSH wnl 3CBC wnl, MCV 95.8GFR >60, glu 88AST 36, ALT 31 11/2022MRI Brain w/wo/CT scan:age related atrophysmall vessel ischemic changes 10/2022:levoscoliosis of lumbardextroscoliosis of lower thoracicMultilevel DDD, worse at L2-L3 2021:B hip osteoarthritisL glut tendinopathy with partial glut min tear, B partial hamstring tears, left labral tear with chondrosis, B bursitis 3GFR 50, Glu 88, ALT 66, AST 73, Ca 10.3, PTH 28.6 2CBC wnl, MCV 98CMP: glu 108, GFR 59, ALT 55, AST63, Ca10.4D 37B12 898TSH 190 12/2020:ECHO:No stress induced ischemiabradycardic at restNormal LV function 09/2020:MRI Brain w/wo:no change: Atrophy, small vessel diseasemild mucous membrane thickening B ethmoid, rt mastoid, ant rt maxillary12/2018:CT Head wo:Atrophysmall vessel changes MSQ:41 >> Con Chapa MD [address], [place], [address] , [facility] [place] - [employer] 4 15:31:03 2023 text/h tml [id number] yo F with decreasing memory, high cholesterol, back pain, hypothyroid, Mario's, osteoporosis GOALS:1. Improve mental and emotional wellbeing2. Work on dizziness - going to start vestibular therapy, eye tracking are off3. Improving memory been dizzy for a while, has gotten worse againMeclizine had no effect, scopolamine patchstill falling alot lightheaded, no room spinningRequest blood pressures from assisted livingrequest staff to dispense medicationsRequest daily weightsrequest tracking foodKnows about health food - -but not keeping track of food very well and not hungryDiscussed CBD to help with appetiteSchedule with Елена for omani scalp acupuncture for dizziness and meridian for naseaudiscussed full spectrum light Did vestibular therapy - no effect Doing speech and occupational therapy Eating better, does not eat all of the food hearing is diminished, decreased higher toneringing in ears constantly Using a walker to help steady her, no falls recentlyDoing PT, OT, St on site Getting ready to do vestibular therapy for Vertigo when she enters assisted livingto bed at 8 to 9, wakes at 7 - can sleep all day PROVIDERS:Neuro: Dr Francy Luna: Dr Luther PMHX:Food intolerance: - gluten, diarrhea with dairy, gassyHeart Murmur: MVPHigh Cholesterol: - on pravastatinDementia: YesBack Pain: lower back pain, previously was doing exercises, had pulled a muscle in backUrinary tract infections: previously all the time, none n a while, dilated numerous timesArthritis: in lower back and fingersAutoimmune Disease: Mario'sAnxiety stateAtrial tachycardiaBronchiectasis without acute exacerbation 04/19/2010 - pastCough 04/19/2010 - pastdepression - medications helpHypothyroidismIdiopathic peripheral neuropathy - feet/toes are numb, long time, better without glutenmitral valve prolapseOsteoporosis - osteopeniaPolymyalgia rheumatica - Took a,long time to diagnose, fatigued, couldn't get out of bed, on steroids for a long period of timeScoliosisCOVID - decrease taste, Decemberizziness - since , now daily event, sometimes can't get out of bed, always with problems related to car sicknessFalls - hit head, hit face, since can't feel feet - they get tangled up in themselvesStress incontinencePVCsGERDleft hip painDilation of aortaatherosclerosis MEDICATIONS:alprazolam - intermittentlychlorhexidine gluconate - Ndonepezilfluoxetinemethylprednisolone - not currentpravastatinprednisone - not current meclizine (ANTIVERT) 12.5 mg tablet 12.5 mg. - stoppedRestasis 0.05 % emulsionescitalopram oxalate (LEXAPRO) 10 mg tablet escitalopram 10 mg tablet - stoppedTAKE 1/2 TABLET BY MOUTH TWICE DAILYfolic acid (FOLVITE) 1 mg tablet folic acid 1 mg tablet - not takingmemantine (NAMENDA) 10 mg Tablet memantine 10 mg tablet - increase to twice a daylevothyroxine (SYNTHROID) 75 mcg tablet Take 1 Tablet (75 mcg) by mouth daily in the morning. 30 - increase to 100 mcg ibuprofen (MOTRIN) 400 mg Oral tablet Take 400 mg by mouth every 6 hours as needed.multivitamin (DAILY-AN) Oral tablet Take 1 Tab by mouth daily.vitamin B complex (VITAMIN B COMPLEX) Oral Cap Take 1 Tab by mouth daily.Calcium-Cholecalciferol, D3, 600 mg(1,500mg) -400 unit Oral Chew Take 1 Tab by mouth 2 times daily. 1 Tab 1Cholecalciferol, Vitamin D3, (VITAMIN D-3) 2,000 unit Oral Tab Take 2 Caps by mouth daily. 1 Cap 1FISH OIL 1,000 mg Oral Cap Take 1 Cap by mouth 2 times daily. For lipids 1 Cap 1 ALLERGIES:lactosePCNwheat PSHX:HX BLADDER REPAIR - suspensionHX ANIKA AND BSOTummy Tuck at same timecolonoscopyCataract FHX:Mother - OR, Stroke, mental disorder, TIAs, alcoholic, massive smokersMaternal Grandmother - schizophrenia, dementiaUnspecified Relation - cancerSister - Lewy body dementia, DM, food intoleranceFather - dementia SOCIAL HISTORY:never smokedoccass alcohol3 children NUTRITION:b - toastL - snacksD -Gluten freeDoesn't eat meatno appetitesnacks often - yogurtLikes potatoes, sweet potatoesrare vegetblesEats starchy veg - potatoes, sweet potatoesSweets: ice cream, gluten free cookies - EXERCISE:< 1 /wk SLEEP:8 hrs, easy STRESS/RESILIENCY:01/16 - losing memory EXPOSURES:Abundant international travel TIMELINE: LABS Reviewed:12/2023t CHOL 192, HDL 61, TG 170, LDL 102, sdLDL 138, [id number], LDL B, LP(A) 61, hs CRP 2.9, homocysteine 10.7, CMP wnl, glu 98, GFR 81, HgA1c 5.0, D 25.3, TSH 0.03 L, FT4 1.9 H, FT3 3.8, CBC wnl, ferritin 60, B12 605, CTX 647, ins 11, cortisol 28 H, RBC mg 5.1, 06/14/2023lu 107, AST 42TSH 126, FT4 0.39 03/21/2023BC, CMP, TSH wnl 3CBC wnl, MCV 95.8GFR >60, glu 88AST 36, ALT 31 11/2022MRI Brain w/wo/CT scan:age related atrophysmall vessel ischemic changes 10/2022:levoscoliosis of lumbardextroscoliosis of lower thoracicMultilevel DDD, worse at L2-L3 2021:B hip osteoarthritisL glut tendinopathy with partial glut min tear, B partial hamstring tears, left labral tear with chondrosis, B bursitis 08/01/2023FR 50, Glu 88, ALT 66, AST 73, Ca 10.3, PTH 28.6 2CBC wnl, MCV 98CMP: glu 108, GFR 59, ALT 55, AST63, Ca10.4D 37B12 898TSH 190 12/2020:ECHO:No stress induced ischemiabradycardic at restNormal LV function 09/2020:MRI Brain w/wo:no change: Atrophy, small vessel diseasemild mucous membrane thickening B ethmoid, rt mastoid, ant rt maxillary12/2018:CT Head wo:Atrophysmall vessel changes MSQ:41 >> 21 (06/06/24) Con Chapa MD [address], [place], [address] , [facility] [employer] 4 17:03:20 2024 text/h tml [id number] yo F with decreasing memory, high cholesterol, back pain, hypothyroid, Mario's, osteoporosis GOALS:1. Improve mental and emotional wellbeing2. Work on dizziness - going to start vestibular therapy, eye tracking are off3. Improving memory 12/24/2024Vitals, EKG good at ERhad been having persistent pain in the chest2 days prior felt pressure in her chest, better with aspirinreports no costochondral painLipase elevated, LFTs elevatedCT abdomen was wnlno alcohol, not very many carbsavoiding dairy, no longer eating ice creamcan't get dronabinol at the fci Generally using walker all the timeonce episode of fall, feet were tangled Previousbeen dizzy for a while, has gotten worse againMeclizine had no effect, scopolamine patchstill falling alot lightheaded, no room spinningRequest blood pressures from assisted livingrequest staff to dispense medicationsRequest daily weightsrequest tracking foodKnows about health food - -but not keeping track of food very well and not hungryDiscussed CBD to help with appetiteSchedule with Елена for omani scalp acupuncture for dizziness and meridian for naseaudiscussed full spectrum light Did vestibular therapy - no effect Doing speech and occupational therapy Eating better, does not eat all of the food hearing is diminished, decreased higher toneringing in ears constantly Using a walker to help steady her, no falls recentlyDoing PT, OT, St on site Getting ready to do vestibular therapy for Vertigo when she enters assisted livingto bed at 8 to 9, wakes at 7 - can sleep all day PROVIDERS:Neuro: Dr Francy Luna: Dr Luther PMHX:Food intolerance: - gluten, diarrhea with dairy, gassyHeart Murmur: MVPHigh Cholesterol: - on pravastatinDementia: YesBack Pain: lower back pain, previously was doing exercises, had pulled a muscle in backUrinary tract infections: previously all the time, none n a while, dilated numerous timesArthritis: in lower back and fingersAutoimmune Disease: Mario'sAnxiety stateAtrial tachycardiaBronchiectasis without acute exacerbation 04/19/2010 - pastCough 04/19/2010 - pastdepression - medications helpHypothyroidismIdiopathic peripheral neuropathy - feet/toes are numb, long time, better without glutenmitral valve prolapseOsteoporosis - osteopeniaPolymyalgia rheumatica - Took a,long time to diagnose, fatigued, couldn't get out of bed, on steroids for a long period of timeScoliosisCOVID - decrease taste, Decemberizziness - since , now daily event, sometimes can't get out of bed, always with problems related to car sicknessFalls - hit head, hit face, since can't feel feet - they get tangled up in themselvesStress incontinencePVCsGERDleft hip painDilation of aortaatherosclerosis MEDICATIONS:reconciled 12/14/24 ALLERGIES:lactosePCNwheat PSHX:HX BLADDER REPAIR - suspensionHX ANIKA AND BSOTummy Tuck at same timecolonoscopyCataract FHX:Mother - OR, Stroke, mental disorder, TIAs, alcoholic, massive smokersMaternal Grandmother - schizophrenia, dementiaUnspecified Relation - cancerSister - Lewy body dementia, DM, food intoleranceFather - dementia SOCIAL HISTORY:never smokedoccass alcohol3 children NUTRITION:b - toastL - snacksD -Gluten freeDoesn't eat meatno appetitesnacks often - yogurtLikes potatoes, sweet potatoesrare vegetblesEats starchy veg - potatoes, sweet potatoesSweets: ice cream, gluten free cookies - EXERCISE:< 1 /wk SLEEP:8 hrs, easy STRESS/RESILIENCY:01/16 - losing memory EXPOSURES:Abundant international travel TIMELINE: LABS Reviewed:12/2024 - ERh/H 15.1/42.4glu 156, GFR 53, AST 44, ALT 55lipase 777 12/2023t CHOL 192, HDL 61, TG 170, LDL 102, sdLDL 138, [id number], LDL B, LP(A) 61, hs CRP 2.9, homocysteine 10.7, CMP wnl, glu 98, GFR 81, HgA1c 5.0, D 25.3, TSH 0.03 L, FT4 1.9 H, FT3 3.8, CBC wnl, ferritin 60, B12 605, CTX 647, ins 11, cortisol 28 H, RBC mg 5.1, 9/6/2023Glu 107, AST 42TSH 126, FT4 0.39 03/21/2023BC, CMP, TSH wnl 01/17/2023BC wnl, MCV 95.8GFR >60, glu 88AST 36, ALT 31 11/2022MRI Brain w/wo/CT scan:age related atrophysmall vessel ischemic changes 10/2022:levoscoliosis of lumbardextroscoliosis of lower thoracicMultilevel DDD, worse at L2-L3 2021:B hip osteoarthritisL glut tendinopathy with partial glut min tear, B partial hamstring tears, left labral tear with chondrosis, B bursitis 08/01/2023FR 50, Glu 88, ALT 66, AST 73, Ca 10.3, PTH 28.6 07/25/2022BC wnl, MCV 98CMP: glu 108, GFR 59, ALT 55, AST63, Ca10.4D 37B12 898TSH 190 12/2020:ECHO:No stress induced ischemiabradycardic at restNormal LV function 09/2020:MRI Brain w/wo:no change: Atrophy, small vessel diseasemild mucous membrane thickening B ethmoid, rt mastoid, ant rt maxillary12/2018:CT Head wo:Atrophysmall vessel changes MSQ:41 >> 21 (06/06/24) Con Chapa MD [address] [facility], [place], [address] , [facility] [employer] 5 11:00:11 OBGyn Episode No OBEpisode recorded.
--- OUTSIDE RECORDS SUMMARY | 2025-01-02 05:18 | XMS_ITS | Clinical Summary ---
Author Organization [facility] Address [address] [place] [address] Care Team Providers Care Cartographic Engineer Name Role Phone Jimena Granados MD Primary Care Provider [phone] Allergies Active Allergy Reactions Criticality Noted Date Comments Gluten Unknown 08/17/2022 Penicillins Unknown 01/11/2010 Reaction as child -- told by mother --as an adult did take a single dose of homeopathic penicillin and had no reaction. Soy Unknown 08/17/2022 Venom-Honey Bee Rash Low 08/17/2022 Medications multivitamin (DAILY-AN) Oral tablet Take 1 Tab by mouth daily. Active vitamin B complex (VITAMIN B COMPLEX) Oral Cap Take 1 Tab by mouth daily. Active Calcium-Choleca lciferol, D3, 600 mg(1,500mg) -400 unit Oral Chew Take 1 Tab by mouth 2 times daily. 1 Tab 1 0 Active Cholecalciferol , Vitamin D3, (VITAMIN D-3) 2,000 unit Oral Tab Take 2 Caps by mouth daily. 1 Cap 1 0 Active FISH OIL 1,000 mg Oral Cap Take 1 Cap by mouth 2 times daily. For lipids 1 Cap 1 0 Active Restasis 0.05 % emulsion 2 Active meclizine (ANTIVERT) 12.5 mg tablet 12.5 mg. 1 Active memantine (NAMENDA) 10 mg Tablet memantine 10 mg tablet Active FLUoxetine (PROzac) 20 mg capsule Take 20 mg by mouth daily. 3 Active pravastatin (PRAVACHOL) 20 mg tablet Take 20 mg by mouth daily. Active ASPIRIN ORAL Take by mouth. Ac tive levothyroxine 50 mcg tablet Take 1 Tablet (50 mcg) by mouth daily in the morning. 90 Tablet 1 4 Active Active Problems Problem Noted Date Diagnosed Date Cough 04/19/2010 Bronchiectasis without acute exacerbation 2009 Tubular adenoma 03/23/2010 Hyperlipidemia- mild 02/04/2010 Idiopathic Small Fiber Senso ry Neuropathy- see Dr Neumann consult 02/04/2010 Family history of colon cancer 01/11/2010 Encounters Date Type Department Care Team Description 11/05/2024 External Device Data STL ABSTRACTION Provider, Abstract 10/30/2024 External Device Data ST[facility] ABSTRACTION Provider, Abstract 10/30/2024 External Device Data ST[facility] ABSTRACTION Provider, Abstract from Last 3 Months Immunizations Immunization Administration Dates Next Due (ADACEL/BOOSTRIX)(10 YR UP) TDAP VACCINE, 0.5ML, IM 01/11/2010 Influenza Seasonal Unspecifi ed Formulation IM 07/16/2013,08/02/2012,08/21/2010 Family History Medical History Relation Name Comments Diabetes Maternal Aunt 1 Cancer Maternal Aunt 2 Uterine Cancer Maternal Cousin Lung Cancer Maternal Uncle Colon Heart Disease Mother Stroke Mother Diabetes Sister 1 Hypertension Sister 2 Asthma Sister 3 Relation Name Status Comments Father (Age 72) Parkinsons Maternal Aunt 1 Maternal Aunt 2 Maternal Cousin Maternal Uncle Mother (Age 70) NM Sister 1 Sister 2 Sister 3 Social History Tobacco Use Types Packs/Day Years Used Date Smoking Tobacco: Never Alcohol Use Standard Drinks/Week Comments Yes 0 (1 standard drink = 0.6 oz pur e alcohol) social Comments No Sex and Gender Information Value Date Recorded Sex Assigned at Female 11/20/2023 8:52 PM BARREL BUILDER Legal Sex Female 5:08 AM BARREL BUILDER Gender Identity Female 11/20/2023 8:52 PM BARREL BUILDER Sexual Orientation Not on file Last Filed Vital Signs Vital Sign Reading Time Taken Comments Blood Pressure 112/74 11/21/2023 8:59 AM BARREL BUILDER Pulse 72 11/21/2023 8:59 AM BARREL BUILDER Temperature 35.9 C (96.6 F) 04/23/2010 1:30 PM CDT Respiratory Rate 16 04/23/2010 1:30 PM CDT Oxygen Saturation 97% 11/21/2023 8:59 AM BARREL BUILDER Inhaled Oxygen Concentration - - Weight 59.9 kg (132 lb) 11/21/2023 8:59 AM BARREL BUILDER Height 162.6 cm (5' 4 ) 11/21/2023 8:59 AM BARREL BUILDER Body Mass Index 22.66 11/21/2023 8:59 AM BARREL BUILDER Plan of Treatment Health Maintenance Due Date Last Done Comments ZOSTER VACCINE (2 of 3) 08/07/2018 06/12/2018 DTAP/TDAP/TD VACCINES (2 - T d or Tdap) 01/12/2020 01/11/2010 COLORECTAL SCREENING 05/30/2021 05/30/2018, 03/23/20 10 RSV VACCINE (60+ or ) (1 - 1-dose 75+ series) 2021 INFLUENZA VACCINE (#1) 2024 3, 08/02/2012, 08/21/2010 COVID-19 Vaccine ( - 2023-2 5 season) 2024 09/09/2021, 12/18/2020, 11/27/2020 OSTEOPOROSIS SCREENING Completed 7, 05/04/2009, 05/04/2009 PNEUMOCOCCAL VACCINE 50+ YEARS Completed 0 07/03/2018, 06/27/2015, 06/27/2013, Additional history exists Procedures Procedure Name Priority Date/Time Associated Diagnosis Comments XR DEXA BONE DENSITY AXIAL 1 OR MORE SITES Routine 05/04/2009 10:00 AM CDT from Last 3 Months or Most Recently Relevant to Health Maintenance Results * XR DEXA BONE DENSITY AXIAL 1 OR MORE SITES (05/04/2009 10:00 AM CDT) Anatomical Region Laterality Modality Other 05/04/2009 10:0 0 AM CDT Narrative 05/04/2009 10:06 AM CDT FINAL - Order Information Only Procedure Note Luis Bautista, RN - 10/27/2015 FINAL - Order Information Only Kevin Coburn MD DIAGNOSTIC IMAGING ORDERABLES Fi nal Result from Last 3 Months or Most Recently Relevant to Health Maintenance Insurance Advance Directives For more information, please contact: [phone] Documents on File Type Date Recorded Patient Peoplesoft Hcm Developer Expl anation Advance Directive POA 03/04/2010 Advance Directive Living Will 03/04/2010 * Full Code (Latest Code Status on File) Date Activated Date Inactivated Comments 04/23/2010 8:29 AM 04/23/2010 4:34 PM * Full Code Date Activated Date Inactivated Comments 04/23/2010 6:09 AM 04/23/2010 8:29 AM Care Teams Cartographic Engineer Relationship Specialty Start Date End Date Jimena Granados MD PCP - General Family Practice 08/30/22
--- OUTSIDE RECORDS SUMMARY | 2025-01-02 05:18 | XMS_ITS | Encounter Summary ---
Author Organization [employer] Address [address] [place] [address] Care Team Providers Care Malted Milk Supervisor Name Role Phone Jimena Granados MD Primary Care Provider Encounter Details Date Type Department Care Team (Late st Contact Info) Description 05/12/2003 Inpatient Historical [facility] Gwen Penn MD [address] [facility] [address] [place] [address] VAGINAL ENTEROCELE (Primary Dx) Social History Tobacco Use Types Packs/Day Years Used Date Smoking Tobacco: Never Assessed Comments Unknown Sex and Gender Information Value Date Recorded Sex Assigned at Female 11/20/2023 8:52 PM GEAR HOBBER OPERATOR Legal Sex Female 5:08 AM GEAR HOBBER OPERATOR Gender Identity Female 11/20/2023 8:52 PM GEAR HOBBER OPERATOR Sexual Orientation Not on file documented as of this encounter Plan of Treatment Not on file documented as of this encounter Visit Diagnoses Diagnosis Vaginal enterocele, congenital or acquired- Primary documented in this encounter Care Teams Malted Milk Supervisor Relationship Specialty Start Date End Date Jimena Granados MD PCP - General Family Practice 08/30/22 documented as of this encounter
--- OUTSIDE RECORDS SUMMARY | 2025-01-02 05:18 | XMS_ITS | Continuity of Care Document ---
Author Organization [facility] Address [address] [place] [address] Phone Care Team Providers Care Beam House Inspector Name Role Phone Mauricio PT,MPT,ATC, Lencho Unavailable [...] Diagnoses Date Provider Providers Copied on Encounter [facility], [place], [place], [id number], tel:[phone] [place] No Information 4 Mauricio Hurtado [place], [place], [place]. Referring Provider: [address], [place], [address]. tel:[phone] [facility] [address], [place], [place], [address], tel:[phone] [place] No Information 4 Mauricio Hurtado [facility]. Referring Provider: [address], [place], [address]. tel:[phone] [facility], [place], [place], [address], tel:[phone] [place] No Information 4 [facility]. Referring Provider: [address], [place], [address]. tel:[phone] [facility], [address], [place], [place], [id number], tel:[phone] [place] No Information 4 [facility]. Referring Provider: [address], [place], [address]. tel:[phone] [facility] [address], [place], [place], [address], tel:[phone] [place] No Information 4 Joni Avalos . Referring Provider: [address], [place], [address]. tel:[phone] Family History Family Member Type Diagnosis Age At Onset No Information Payers Payer name Insurance type Covered constitution party ID Authorlenaa gil(s) [facility] Medicare Complete 16 [id number] Social History Type Description Quantity Date Captured [...]
--- OUTSIDE RECORDS SUMMARY | 2025-01-02 05:18 | XMS_ITS | Encounter Summary ---
Author Organization [employer] Address [address] [place] [address] Care Team Providers Care Humidifier Attendant Name Role Phone Jimena Granados MD Primary Care Provider [phone] Encounter Details Date Type Department Care Team (Late st Contact Info) Description 05/28/2003 Outpatient Historical [facility], [address] Gwen Penn MD [address] [facility] [address] [address] URIN TRACT INFECTION NOS (Primary Dx) Social History Tobacco Use Types Packs/Day Years Used Date Smoking Tobacco: Never Assessed Comments Unknown Sex and Gender Information Value Date Recorded Sex Assigned at Female 11/20/2023 8:52 PM DOCK GRADER Legal Sex Female 5:08 AM DOCK GRADER Gender Identity Female 11/20/2023 8:52 PM DOCK GRADER Sexual Orientation Not on file documented as of this encounter Plan of Treatment Not on file documented as of this encounter Visit Diagnoses Diagnosis Urinary tract infection, site not specified- Primary documented in this encounter Care Teams Humidifier Attendant Relationship Specialty Start Date End Date Jimena Granados MD PCP - General Family Practice 08/30/22 documented as of this encounter
--- OUTSIDE RECORDS SUMMARY | 2025-01-02 05:18 | XMS_ITS | Encounter Summary ---
Author Organization [employer] Address [address] [place] [address] Care Team Providers Care Snow Remover Name Role Phone Jimena Granados MD Primary Care Provider [phone] Encounter Details Date Type Department Care Team (Latest Contact Info) Description 05/04/2009 Outpatient Historical [facility] [place] [address] [place] [address] Special Screening for Osteoporosis Social History Tobacco Use Types Packs/Day Years Used Date Smoking Tobacco: Never Assessed Comments Unknown Sex and Gender Information Value Date Recorded Sex Assigned at Female 11/20/2023 8:52 PM PRECISION MECHANICAL INSTRUMENT MAKER Legal Sex Female 5:08 AM PRECISION MECHANICAL INSTRUMENT MAKER Gender Identity Female 11/20/2023 8:52 PM PRECISION MECHANICAL INSTRUMENT MAKER Sexual Orientation Not on file documented as of this encounter Plan of Treatment Not on file documented as of this encounter Procedures Procedure Name Priority Date/Time Associated Diagnosis Comments XR DEXA BONE DENSITY AXIAL 1 OR MORE SITES Routine 05/04/2009 10:00 AM CDT XR DEXA BONE DENSITY AXIAL 1 OR MORE SITES Routine 05/04/2009 10:00 AM CDT documented in this encounter Results * XR DEXA BONE DENSITY AXIAL 1 OR MORE SITES (05/04/2009 10:00 AM CDT) Anatomical Region Laterality Modality Other 05/04/2009 10:0 0 AM CDT Narrative 05/04/2009 10:15 AM CDT [facility] [address] [place], [place] [address] Admit Date: 05/04/2009 ARIA MOON Sex: F Admit Prov: KEVIN COBURN Date: 1945 Primary Care Prov: CMRN: [id number] Room: [facility]: [address] [place] [address] IMAGING SERVICES Ordering Prov: N/A Accession Number: [id number] Interpretation Examination: Bone Density Study (DEXA) Clinical History: 63 year-old postmenopausal female. Monitor for osteoporosis. Findings: Lateral radiograph of the lumbar spine: No evidence of fracture. Lumbar Spine (L 1-4 ) spine bone mineral density is 0.89 g/sq cm which corresponds to a T-score of -2.4. Femoral neck densities: Left femoral neck bone mineral density is 0.90 g/sq cm which corresponds to a T-score of -1.3. Right femoral neck bone mineral density is 0.86 g/sq cm which corresponds to a T-score of -1.0. Impressions: Lumbar spine: This patient's bone mineral density of the spine is very osteopenic when compared to the normal range of young adults and present fracture risk is considered to be moderate. Hips: This patient's bone mineral density of the hip is mildly osteopenic which is normal for age when compared to the normal range of young adults and present fracture risk is considered to be very low. Comments: None. Detailed report to follow. . Dictated by: IMMANUEL CARRASCO 05/04/2009 10:13 Electronically signed by: IMMANUEL CARRASCO 05/04/2009 10:14 Procedure Note Immanuel Carrasco MD - 05/04/2009 [facility] [address] [place], [place] [address] Admit Date: 05/04/2009 ARIA MOON Sex: F Admit Prov: KEVIN COBURN Date: 1945 Primary Care Prov: CMRN: [id number] [id number] Ordering Prov: N/A Interpretation Examination: Bone Density Study (DEXA) Clinical History: 63 year-old postmenopausal female. Monitor for osteoporosis. Findings: Lateral radiograph of the lumbar spine: No evidence of fracture. Lumbar Spine (L 1-4 ) spine bone mineral density is 0.89 g/sq cmwhich corresponds to a T-score of -2.4. Femoral neck densities: Left femoral neck bone mineral density is 0.90 g/sq cm whichcorresponds to a T-score of -1.3. Right femoral neck bone mineral density is 0.86 g/sq cm whichcorresponds to a T-score of -1.0. Impressions: Lumbar spine: This patient's bone mineral density of the spine isvery osteopenic when compared to the normal range of young adults andpresent fracture risk is considered to be moderate. Hips: This patient's bone mineral density of the hip is mildlyosteopenic which is normal for age when compared to the normal range of youngadults and present fracture risk is considered to be very low. Comments: None. Detailed report to follow. . Dictated by: IMMANUEL CARRASCO 05/04/2009 10:13 Electronically signed by: IMMANUEL CARRASCO 05/04/2009 10:14 us Kevin Coburn MD DIAGNOSTIC IMAGING ORDERABLES Fi nal Result * XR DEXA BONE DENSITY AXIAL 1 OR MORE SITES (05/04/2009 10:00 AM CDT) Anatomical Region Laterality Modality Other 05/04/2009 10:0 0 AM CDT Narrative 05/04/2009 10:06 AM CDT FINAL - Order Information Only Procedure Note Luis Bautista RN - 10/27/2015 FINAL - Order Information Only us Kevin Coburn MD DIAGNOSTIC IMAGING ORDERABLES Fi nal Result documented in this encounter Visit Diagnoses Diagnosis Special screening for osteoporosis documented in this encounter Care Teams Snow Remover Relationship Specialty Start Date End Date Jimena Granados MD PCP - General Family Practice 08/30/22 documented as of this encounter
--- OUTSIDE RECORDS SUMMARY | 2025-01-02 05:18 | XMS_ITS | Encounter Summary ---
Author Organization [employer] Address [address] [place] [address] Care Team Providers Care Corporate Associate Attorney Name Role Phone Jimena Granados MD Primary Care Provider Encounter Details Date Type Department Care Team (Latest Contact Info) Description 05/29/2001 Inpatient Historical [place] [address] [place] [address] Mohit Barrett MD [address] [place] [address] Uterine prolapse without mention of vaginal wall prolapse (Primary Dx) Social History Tobacco Use Types Packs/Day Years Used Date Smoking Tobacco: Never Assessed Comments Unknown Sex and Gender Information Value Date Recorded Sex Assigned at Female 11/20/2023 8:52 PM LIVESTOCK INSPECTOR Legal Sex Female 5:08 AM LIVESTOCK INSPECTOR Gender Identity Female 11/20/2023 8:52 PM LIVESTOCK INSPECTOR Sexual Orientation Not on file documented as of this encounter Plan of Treatment Not on file documented as of this encounter Visit Diagnoses Diagnosis Uterine prolapse without mention of vaginal wall prolapse- Primary documented in this encounter Care Teams Corporate Associate Attorney Relationship Specialty Start Date End Date Jimena Granados MD PCP - General Family Practice 08/30/22 documented as of this encounter
--- OUTSIDE RECORDS SUMMARY | 2025-01-02 05:18 | XMS_ITS | Encounter Summary ---
Author Organization [facility] Address [address] [place] [address] Care Team Providers Care Supervisor Keymodule Assembly Name Role Phone Jimena Granados MD Primary Care Provider [phone] Encounter Details Date Type Department Care Team (Late st Contact Info) Description 04/30/2003 Outpatient Historical [facility]) [address] [place] [address] Sunil Miles Social History Tobacco Use Types Packs/Day Years Used Date Smoking Tobacco: Never Assessed Comments Unknown Sex and Gender Information Value Date Recorded Sex Assigned at Female 11/20/2023 8:52 PM DOWEL SETTING MACHINE OPERATOR Legal Sex Female 5:08 AM DOWEL SETTING MACHINE OPERATOR Gender Identity Female 11/20/2023 8:52 PM DOWEL SETTING MACHINE OPERATOR Sexual Orientation Not on file documented as of this encounter Plan of Treatment Not on file documented as of this encounter Visit Diagnoses Not on filedocumented in this encounter Care Teams Supervisor Keymodule Assembly Relationship Specialty Start Date End Date Jimena Granados MD PCP - General Family Practice 08/30/22 documented as of this encounter
--- OUTSIDE RECORDS SUMMARY | 2025-01-02 05:18 | XMS_ITS | Encounter Summary ---
Author Organization [employer] Address [address] [place] [address] Care Team Providers Care Animal Sticker Name Role Phone Jimena Granados MD Primary Care Provider [phone] Encounter Details Date Type Department Care Team (Late st Contact Info) Description 06/23/2003 Outpatient Historical [facility] Gwen Penn MD [address] [facility] [address] [address] RENAL & URETERAL DIS NOS (Primary Dx) Social History Tobacco Use Types Packs/Day Years Used Date Smoking Tobacco: Never Assessed Comments Unknown Sex and Gender Information Value Date Recorded Sex Assigned at Female 11/20/2023 8:52 PM AUTO STRIPER Legal Sex Female 5:08 AM AUTO STRIPER Gender Identity Female 11/20/2023 8:52 PM AUTO STRIPER Sexual Orientation Not on file documented as of this encounter Plan of Treatment Not on file documented as of this encounter Visit Diagnoses Diagnosis Unspecified disorder of kidney and ureter- Primary documented in this encounter Care Teams Animal Sticker Relationship Specialty Start Date End Date Jimena Granados MD PCP - General Family Practice 08/30/22 documented as of this encounter
--- OUTSIDE RECORDS SUMMARY | 2025-01-02 05:18 | XMS_ITS | Encounter Summary ---
Author Organization [employer] Address [address] [place] [address] Care Team Providers Care Mountain Or Glacier Guide Name Role Phone Jimena Granados MD Primary Care Provider [phone] Encounter Details Date Type Department Care Team (Latest Contact Info) Description 09/25/1998 Outpatient Historical [place] [address] [place] [address] Postmenopausal bleeding (Primary Dx) Social History Tobacco Use Types Packs/Day Years Used Date Smoking Tobacco: Never Assessed Comments Unknown Sex and Gender Information Value Date Recorded Sex Assigned at Female 11/20/2023 8:52 PM LEASING SPECIALIST Legal Sex Female 5:08 AM LEASING SPECIALIST Gender Identity Female 11/20/2023 8:52 PM LEASING SPECIALIST Sexual Orientation Not on file documented as of this encounter Plan of Treatment Not on file documented as of this encounter Visit Diagnoses Diagnosis Postmenopausal bleeding- Primary documented in this encounter Care Teams Mountain Or Glacier Guide Relationship Specialty Start Date End Date Jimena Granados MD PCP - General Family Practice 08/30/22 documented as of this encounter
--- OUTSIDE RECORDS SUMMARY | 2025-01-02 05:19 | XMS_ITS | Referral Summary ---
Author Organization [facility] Address [address] [place] [address] Care Team Providers Care Executive Assistant To General Counsel Name Role Phone Freddy TIWARI MD, Con Brown Primary Care Provider Allergies Active Allergy Reactions Criticality Noted Date Comments Gluten Unknown 08/17/2022 Penicillins Unknown 01/11/2010 Reaction as child -- told by mother --as an adult did take a single dose of homeopathic penicillin and had no reaction. Soy Unknown 08/17/2022 Venom-Honey Bee Unknown 08/17/2022 Medications levothyroxine (SYNTHROID) 125 mcg tablet Synthroid 125 mcg tablet TAKE 1 TABLET BY MOUTH DAILY Active pravastatin (PRAVACHOL) 20 mg tablet pravastatin 20 mg tablet TAKE 1 TABLET BY MOUTH DAILY Active FLUoxetine (PROzac) 20 mg capsule Take 2 capsules (40 mg total) by mouth daily 3 Active memantine (NAMENDA) 10 mg tablet Take 1 tablet (10 mg total) by mouth 2 (two) times a day 60 tablet 6 3 Active ezetimibe (ZETIA) 10 mg tablet Take 1 tablet (10 mg total) by mouth daily 4 Active donepeziL (ARICEPT) 10 mg tablet TAKE ONE TABLET BY MOUTH DAILY WITH FOOD 30 tablet 3 4 Active Active Problems Problem Noted Date Diagnosed Date Alzheimer's disease 03/25/2024 Assessment & Plan (08/14/2024 11:00 AM WATER TESTER): Continue donepezil/Aricept 10 mg daily. We will continue to monitor her weight. If there is weight loss at our next appointment, we may have to decrease the dosage. She is on the verge of eligibility for newer anti-amyloid therapies. We briefly discussed lecanemab/Leqembi and CS would like to think about it. If interested, she will reach out. We would need to pursue biomarkers, an updated brain MRI, and APOE genotype testing. I also provided information about the START study. She is not driving. I support this decision. Follow-up in 6 months or sooner if need be. Assessment & Plan (03/25/2024 12:17 PM CDT): Restart 5 mg of donepezil/Aricept. Will start at 5 mg due to concerns for low appetite. If patient tolerating well and not losing weight, may increase to 10 mg after one month. Continue with physical therapy, occupational therapy, and speech therapy at assisted living facility. May consider appetite stimulant in future if ongoing low appetite. Patient provided blood sample today for genetics study. Follow-up scheduled with Dr. Dahl 08/2024. 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 Gastroesophageal reflux disease 11/04/2022 Impaired cognition 11/04/2022 Injury of coccyx 11/04/2022 Male urinary stress incontinence 11/04/2022 Osteoarthritis 09/22/2022 Chronic urinary tract infection 07/25/2022 Hypothyroidism 07/25/2022 Mild cognitive disorder 07/25/2022 Polymyalgia rheumatica 07/25/2022 Memory loss 02/24/2022 Bronchiectasis without acute exacerbation 2009 Cough 04/19/2010 Tubular adenoma 03/23/2010 Hyperlipidemia 02/04/2010 Idiopathic small fiber sensory neuropathy 2009 Family history of colon cancer 01/11/2010 Social History Tobacco Use Types Packs/Day Years Used Date Smoking Tobacco: Never Smokeless Tobacco: Never Tobacco Cessation:Counseling Given: Not Answered AUDIT-C Answer Date Recorded Q1: How often do you have a drink containing alcohol? Never 11/04/2022 Q2: How many drinks containi ng alcohol do you have on a typical day when you are drinking? Patient does not drink Q3: How often do you have si x or more drinks on one occasion? Never 11/04/2022 Comments Unknown Sex and Gender Information Value Date Recorded Sex Assigned at Not on file Legal Sex Female 12:17 PM WATER TESTER Gender Identity Not on file Sexual Orientation Not on file Occupation Industry Job Start Date Job End Date Retired Not on file Not on file Not on file Last Filed Vital Signs Vital Sign Reading Time Taken Comments Blood Pressure 109/74 08/14/2024 10:12 AM WATER TESTER Pulse 82 08/14/2024 10:12 AM WATER TESTER Temperature 36.7 C (98.1 F) 08/14/2024 10:12 AM WATER TESTER Respiratory Rate - - Oxygen Saturation 97% 08/14/2024 10:12 AM WATER TESTER Inhaled Oxygen Concentration - - Weight 60.8 kg (134 lb) 08/14/2024 10:12 AM WATER TESTER Height 160 cm (5' 3 ) 08/14/2024 10:12 AM WATER TESTER Body Mass Index 23.74 08/14/2024 10:12 AM WATER TESTER Plan of Treatment Not on file Procedures Procedure Name Priority Date/Time Associated Diagnosis Comments SCREENING MAMMOGRAM BILATERAL W JOSE A Schedule Routine, Read Routine (OP Routine) 04/22/2019 1:56 PM CDT Encounter for screening mammogram for malignant neoplasm of breast DEXA AXIAL SKELETON BONE DENSITY 1 OR MORE SITES Routine 03/28/2017 7:55 PM CDT from Last 3 Months or Most Recently Relevant to Health Maintenance Results * Screening Mammogram Bilateral W Jose A (04/22/2019 1:56 PM CDT) Anatomical Region Laterality Modality Breast Bilateral Mammography Narrative 04/23/2019 11:56 AM CDT Screening Mammogram Bilateral W Jose A: 04/22/19 Clinical: Encounter for screening mammogram for malignant neoplasm of breast. Prior Study Comparisons: Comparison was made to the prior available relevant studies at the time of interpretation. Findings: Bilateral No significant masses, malignant type calcifications, skin thickening, nipple retraction, or significant lymphadenopathy is noted in either breast. The CAD review showed no significant findings. The breasts have scattered areas of fibroglandular density. The patient will be notified of results by letter. Impression: BI-RADS ATLAS category (overall): 1 Negative There is no mammographic evidence of malignancy. Routine Screening Mammogram in 1 Yr is recommended for bilateral Overall Assessment: 1 - Negative us Kevin Coburn MD IMG MAMMO PROCEDURES Final Resul t * Dexa Axial Skeleton Bone Density 1 or 2 Site (03/28/2017 7:55 PM CDT) Anatomical Region Laterality Modality Body N/A Radiographic Delfina ging 03/28/2017 7:55 PM CDT Narrative 03/28/2017 7:55 PM CDT EXAM: Bone mineral density [facility]. HISTORY: Status post hysterectomy at the age of 58. Patient currently taking calcium and vitamin D. DXA BMD was done at [facility] on a [employer] CI. Precision testing at this site has resulted in a least significant change of: Lumbar spine 0.035 g/sq cm Hip 0.025 g/sq cm BMD L1-L4 is 0.860 g/sq cm corresponding to a T score of -1.7. BMD left femoral neck is 0.716 g/sq cm corresponding to a T score of -1.2. BMD total left hip is 0.730 g/sq cm corresponding to a T score of -1.7. COMPARISON: When comparison is made with prior bone densitometry dated 08/12/2004, there has been 5.6% interval increase in total bone mineral density of the lumbar spine and 12.6% interval decrease in total bone mineral density of the left hip. IMPRESSION: Low bone mass (osteopenia) which depending on the clinical circumstances may result in a moderate increased risk of fragility fracture. If followup is to be done, for technical reasons, it should be performed on this same machine. Electronically signed by: Rosy Myers M.D. Radiologist: ROSY MYERS M.D. Attending: KEVIN COBURN M.D. Requesting: KEVIN COBURN M.D. Requesting Requesting ID: [id number] Attending Attending ID: [id number] Completed Time: 03/28/2017 2:55 PM Dictated Time: N/A Transcribed Time: 03/28/2017 3:03 PM Signed by: ROSY MYERS M.D. on 03/28/2017 3:03 PM Report To 1 ID: Report To 1 Name: , Report To 1 FAX: Report To 2 ID: Report To 2 Name: , Report To 2 FAX: Report To 3 ID: Report To 3 Name: , Report To 3 FAX: NextGen Order #: Procedure Note Miscellaneous, Not In File / Provider, MD Margarita - 03/28/2017 EXAM: Bone mineral density [facility]. HISTORY: Status post hysterectomy at the age of 58. Patient currently taking calcium and vitamin D. DXA BMD was done at [facility] on a [employer] Discovery CI. Precision testing at this site has resulted in a least significant change of: Lumbar spine 0.035 g/sq cm Hip 0.025 g/sq cm BMD L1-L4 is 0.860 g/sq cm corresponding to a T score of -1.7. BMD left femoral neck is 0.716 g/sq cm corresponding to a T score of -1.2. BMD total left hip is 0.730 g/sq cm corresponding to a T score of -1.7. COMPARISON: When comparison is made with prior bone densitometry dated 08/12/2004, there has been 5.6% interval increase in total bone mineral density of the lumbar spine and 12.6% interval decrease in total bone mineral density of the left hip. IMPRESSION: Low bone mass (osteopenia) which depending on the clinical circumstances may result in a moderate increased risk of fragility fracture. If followup is to be done, for technical reasons, it should be performed on this same machine. Electronically signed by: Sharlene QuezadaD. Radiologist: ROSY MYERS M.D. Attending: KEVIN COBURN M.D. Requesting: KEVIN COBURN M.D. Requesting Requesting ID: [id number] Attending Attending ID: [id number] Completed Time: 03/28/2017 2:55 PM Dictated Time: N/A Transcribed Time: 03/28/2017 3:03 PM Signed by: ROSY MYERS M.D. on 03/28/2017 3:03 PM Report To 1 ID: Report To 1 Name: , Report To 1 FAX: Report To 2 ID: Report To 2 Name: , Report To 2 FAX: Report To 3 ID: Report To 3 Name: , Report To 3 FAX: NextGen Order #: Kevin Coburn MD IMG DXA PROCEDURES Final Result from Last 3 Months or Most Recently Relevant to Health Maintenance Insurance MEDICARE [facility] HMO REF [facility] Address: [address] [address] [place] [address] [facility] MEDICARE ADVANTAGE [facility] Address: [address] [address] [place] [address] Care Teams Executive Assistant To General Counsel Relationship Specialty Start Date End Date [place] [address] [place] [address] PCP - General Family Medicine 07/17/24
--- OUTSIDE RECORDS SUMMARY | 2025-01-02 05:19 | XMS_ITS | Clinical Summary ---
Author Organization [facility] Address [address] [place] [address] Care Team Providers Care Fusion Analyst Name Role Phone Freddy TIWARI MD, Con [...] 03/25/2024 Assessment & Plan (08/14/2024 11:00 AM REFINERY OPERATOR POLYMERIZATION PLANT): Continue donepezil/Aricept 10 mg daily. We will [...] 2009 Family history of colon cancer 01/11/2010 Surgical History Surgery Date Site/Laterality Comments HYSTERECTOMY Medical History Medical History Date Comments Anxiety Depression Hypercholesteremia Thyroid disease Family History Medical History Relation Name Comments Memory loss Sister Relation Name Status Comments Father Mother Sister Social History Tobacco Use Types Packs/Day Years [...] on file Legal Sex Female 12:17 PM REFINERY OPERATOR POLYMERIZATION PLANT Gender Identity Not on file Sexual Orientation Not on file Occupation Industry Job Start Date Job End Date Retired Not on file Not on file Not on file Obstetrics History Last Filed Vital Signs Vital Sign Reading Time Taken Comments Blood Pressure 109/74 08/14/2024 10:12 AM REFINERY OPERATOR [employer]YMER[employer]ATION PLANT Pulse 82 08/14/2024 10:12 AM REFINERY OPERATOR [employer]ATION [employer]ANT Temperature 36.7 C (98.1 F) 08/14/2024 10:12 AM REFINERY OPERATOR [employer]YMER[employer]ATION PLANT Respiratory Rate - - Oxygen Saturation 97% 08/14/2024 10:12 AM REFINERY OPERATOR [employer]ATION [employer]ANT Inhaled Oxygen Concentration - - Weight 60.8 kg (134 lb) 08/14/2024 10:12 AM REFINERY OPERATOR [employer]ATION PLANT Height 160 cm (5' 3 ) 08/14/2024 10:12 AM REFINERY OPERATOR [employer]ATION PLANT Body Mass Index 23.74 08/14/2024 10:12 AM REFINERY OPERATOR [employer]ATION [employer]ANT Plan of Treatment Health Maintenance Due Date Last Done Comments Depression Screening 1946 Fall Risk Assessment 1945 Hepatitis C Screening 1946 Hepatitis B Screening 1964 Well Visit 65+ 2011 Osteoporosis Screening-Bone Density Scan 03/28/2019 03/28/2017, 03/28/2017, 05/04/2009 Covid-19 Vaccine (4 - 2024-2 5 season) 2024 09/09/2021, 12/18/2020, 11/27/2020 Influenza Vaccine (#1) 2024 0, 07/15/2019, 07/03/2018, Additional history exists DTaP/Tdap/Td Vaccine (3 - Td or Tdap) 08/04/2026 08/04/2016, 01/11/2010 Pneumococcal vaccine 65+ Completed 018, 08/07/2015, 06/27/2015, Additional history exists Zoster Vaccine Completed 02/05/2019, 01/2018, 05/08/2018 Breast Cancer Screening-Mammogram Discontinued 04/22/2019, 04/02/2018, 03/28/2017, Additional history exists Procedures Procedure Name Priority [...] for bilateral Overall Assessment: 1 - Negative Kevin Coburn MD IMG MAMMO PROCEDURES Final Resul t * Dexa Axial Skeleton Bone Density 1 or 2 Site (03/28/2017 7:55 PM CDT) Anatomical Region Laterality Modality Body N/A Radiographic Delfina ging 03/28/2017 7:55 PM CDT Narrative 03/28/2017 7:55 PM CDT EXAM: Bone mineral density [facility]. HISTORY: Status post hysterectomy at the age of 58. Patient currently taking calcium and vitamin D. DXA BMD was done at [facility] on a [employer] Discovery CI. Precision testing at this site [...] Requesting: KEVIN COBURN M.D. Requesting Requesting ID: [id number] Attending Attending ID: [id number] Completed Time: 03/28/2017 2:55 PM Dictated Time: [...] Margarita - 03/28/2017 EXAM: Bone mineral density [facility]. HISTORY: Status post hysterectomy at the age of 58. Patient currently taking calcium and vitamin D. DXA BMD was done at [facility] on a [employer] Discovery CI. Precision testing at this site [...] Requesting: KEVIN COBURN M.D. Requesting Requesting ID: [id number] Attending Attending ID: [id number] Completed Time: 03/28/2017 2:55 PM Dictated Time: [...] Report To 3 FAX: NextGen Order #: us Kevin Coburn MD IMG DXA PROCEDURES Final Result from Last 3 Months or Most Recently Relevant to Health Maintenance Insurance [facility]IC[facility] REF [facility] Address: [address] [address] [place] [address] [employer] MEDICARE ADVANTAGE Care Teams Fusion Analyst Relationship Specialty Start Date End Date Con Hayes III, [place] [address] [place] [address] PCP - General Family Medicine 07/17/24
[2025-01-02] MEDS: HYDROcodone/acetaminophen (*CRX) 5-325 MG TABLET 1 TAB PO (05:26)
[2025-01-02 06:37] VITALS: BP 117/77; PULSE 62; RESP 19; O2SAT 93
[2025-01-02 08:39] VITALS: BP 110/74; PULSE 76; RESP 18; O2SAT 98
== END 2025-01-02 08:41 ==
PROVIDERS: Emergency Provider Student in an Organized Health Care Education/Training Program
DX: S79.912A Unspecified injury of left hip, initial encounter (principal); S79.911A Unspecified injury of right hip, initial encounter; M47.816 Spondylosis without myelopathy or radiculopathy, lumbar region; M47.812 Spondylosis without myelopathy or radiculopathy, cervical region; M41.9 Scoliosis, unspecified; M16.0 Bilateral primary osteoarthritis of hip; F03.90 Unspecified dementia, unspecified severity, without behavioral disturbance, psychotic disturbance, mood disturbance, and anxiety; I70.90 Unspecified atherosclerosis; E06.3 Autoimmune thyroiditis; M81.0 Age-related osteoporosis without current pathological fracture; W19.XXXA Unspecified fall, initial encounter
CPT/HCPCS: 70450; 72125; 72131; 73521; 99284; A9270

== ENCOUNTER 2025-07-21 13:40 | Emergency (ER) | payer MEDICARE, SELFPAY ==
--- OUTSIDE RECORDS SUMMARY | 2024-05-10 04:00 | XMS_ITS | Continuity of Care Document ---
Author Organization [facility] Address [address] [place] [address] Phone Care Team Providers Care Oil Gauger Name Role Phone Mauricio PT,MPT,ATC, Lencho Unavailable Unavai lable Procedures Procedure Date Therapeutic Activities Therapeutic Activities Therapeutic Activities Therapeutic Activities Doc neg elder mal no plan PRES/ABSN URINE INCON ASSESS PT Evaluation Moderate Complexity Therapeutic Activities Neuromuscular Re-Ed Advance Directives Directive Yes / No Effective Date File Name No Information Encounters Encounter Description Practice Location Reason(s) For Visit Diagnoses Date Provider Providers Copied on Encounter [facility], [place], [place], [id number], tel:[phone] [place] No Information 4 Mauricio Hurtado [place], [place], [place]. Referring Provider: [address], [place], [address]. tel:[phone] [facility] [address], [place], [place], [id number], tel:[phone] [place] No Information [address] [facility]. Referring Provider: [address], [place], [address]. tel:[phone] [facility], [place], [place], [id number], tel:[phone] [place] No Information 4 [facility]. Referring Provider: [address], [place], [address]. tel:[phone] [facility], [address], [place], [place], [id number], tel:[phone] [place] No Information 4 [facility]. Referring Provider: [address], [place], [address]. tel:[phone] [facility] [address], [place], [place], [id number], tel:[phone] [place] No Information 4 Joni Avalos . Referring Provider: [address], [place], [address]. tel:[phone] Family History Family Member Type Diagnosis Age At Onset No Information Payers Payer name Insurance type Covered constitution party ID Authorlenaa gil(s) [facility] Medicare Complete 16 [id number] Social History Type Description Quantity Date Captured Comments Sex Female Smoking Status No Information Chief Complaint And Reason For Visit No Information Reason For Referral Reason For Referral No Information Plan Of Treatment Date Type Action Status Referral Ordered: Clinical Psychology (related to Depression) ordered Referral Ordered: Depression: Depression management program timeframe: 1 Day. (related to Depression) ordered Referral Ordered: Referrals: Specialist. Evaluate and Treat (related to Adjustment disorder with depressed mood) ordered History Of Present Illness Encounter Date Complaint History Of Prese nt Illness No Information Functional Status Date Functional Assessmen t No Information Instructions Date Instruction Additional Infor mation No Information Assessments Type Assessment Date No Information Patient Care Teams Name Effective Dates (start - stop) Status Members No Information
--- NOTE | ~2025-07-21 | CT_ITS ---
CT abdomen pelvis wo con INDICATION:R lowre back pain, uti sx's . COMPARISON: None. TECHNIQUE: Axial 2.5 mm images of the abdomen were obtained without IV or oral contrast. Diagnostic sensitivity is limited due to lack of IV contrast. FINDINGS: The lung bases are clear. The liver parenchyma is unremarkable. No intrahepatic mass or ductal dilatation is evident. The gallbladder is unremarkable. The pancreas and spleen are normal in appearance. The adrenal glands are symmetric in size. The kidneys are unremarkable. No intrarenal stones are noted. There is no hydronephrosis. Evaluation of the stomach and bowel loops are limited due to lack of oral contrast. There is no evidence of bowel obstruction or acute appendicitis. There are colonic diverticulosis without evidence of acute diverticulitis. The bladder and rectum are normal. No free intraperitoneal fluid or air is evident. There is no significant retroperitoneal lymphadenopathy. The aorta, visceral vessels and renal arteries demonstrate normal caliber. The lower thoracic and lumbar vertebrae are in normal alignment. IMPRESSION: No acute abnormality is noted in the abdomen and pelvis. Colonic diverticulosis without evidence of acute diverticulitis. All CT scans at this facility are performed using low dose modulation techniques as appropriate to perform exam including the following: automated exposure control; use of iterative reconstruction technique; adjustment of the mA and/or kV according to patient size (this includes techniques or standardized protocols for targeted exams where dose is matched to indication/reason for exam). Reviewed, dictated and finalized at location S. IMPRESSION: No acute abnormality is noted in the abdomen and pelvis. Colonic diverticulosis without evidence of acute diverticulitis. All CT scans at this facility are performed using low dose modulation techniqu es as appropriate to perform exam including the following: automated exposure c ontrol; use of iterative reconstruction technique; adjustment of the mA and/or kV according to patient size (this includes techniques or standardized protocol s for targeted exams where dose is matched to indication/reason for exam).
[2025-07-21 14:38] VITALS: BP 116/86; PULSE 93; RESP 16; TEMP 36.3; O2SAT 99
--- OUTSIDE RECORDS SUMMARY | 2025-07-21 14:54 | XMS_ITS | Clinical Summary ---
Author Organization [facility] Address [address] [place] [address] Care Team Providers Care Divinity Teacher Name Role Phone Jimena Granados MD Primary Care Provider [phone] Allergies Active Allergy Reactions Criticality Noted Date [...] daily in the morning. 90 Tablet 1 Active Active Problems Problem Noted Date Diagnosed Date Cough 04/19/2010 Bronchiectasis without acute exacerbation 2009 Tubular adenoma 03/23/2010 Hyperlipidemia- mild 02/04/2010 Idiopathic Small Fiber Senso ry Neuropathy- see Dr Neumann consult 02/04/2010 Family history of colon cancer 01/11/2010 Immunizations Immunization Administration Dates Next Due (ADACEL/BOOSTRIX)(10 [...] Maternal Cousin Maternal Uncle Mother (Age 70) [place] Sister 1 Sister 2 Sister 3 Social History Tobacco Use Types Packs/Day Years Used Date Smoking Tobacco: Never Alcohol Use Standard Drinks/Week Comments Yes 0 (1 standard drink = 0.6 oz pur e alcohol) social Comments No Sex and Gender Information Value Date Recorded Sex Assigned at Female 11/20/2023 8:52 PM INSURANCE SERVICE REPRESENTATIVE Legal Sex Female 5:08 AM INSURANCE SERVICE REPRESENTATIVE Gender Identity Female 11/20/2023 8:52 PM INSURANCE SERVICE REPRESENTATIVE Sexual Orientation Not on file Last Filed Vital Signs Vital Sign Reading Time Taken Comments Blood Pressure 112/74 11/21/2023 8:59 AM INSURANCE SERVICE REPRESENTATIVE Pulse 72 11/21/2023 8:59 AM INSURANCE SERVICE REPRESENTATIVE Temperature 35.9 C (96.6 F) 04/23/2010 1:30 PM CDT Respiratory Rate 16 04/23/2010 1:30 PM CDT Oxygen Saturation 97% 11/21/2023 8:59 AM INSURANCE SERVICE REPRESENTATIVE Inhaled Oxygen Concentration - - Weight 59.9 kg (132 lb) 11/21/2023 8:59 AM INSURANCE SERVICE REPRESENTATIVE Height 162.6 cm (5' 4) 11/21/2023 8:59 AM INSURANCE SERVICE REPRESENTATIVE Body Mass Index 22.66 11/21/2023 8:59 AM INSURANCE SERVICE REPRESENTATIVE Plan of Treatment Health Maintenance Due Date Last Done Comments ZOSTER VACCINE (2 of 3) 08/07/2018 06/12/2018 DTAP/TDAP/TD VACCINES (2 - T d or Tdap) 01/12/2020 01/11/2010 COLORECTAL SCREENING 05/30/2021 05/30/2018, 03/23/20 10 RSV VACCINE (60+ or ) (1 - 1-dose 75+ series) 2021 OSTEOPOROSIS SCREENING 03/28/2022 7, 05/04/2009, 05/04/2009 INFLUENZA VACCINE (#1) 2025 3, 08/02/2012, 08/21/2010 COVID-19 Vaccine (2024-2 6 season) 2025 09/09/2021, 12/18/2020, 11/27/2020 PNEUMOCOCCAL VACCINE 50+ YEARS Completed 0 07/03/2018, [...] Order Information Only Procedure Note Luis Bautista, ALBERT - 10/27/2015 FINAL - Order Information Only Kevin Coburn MD DIAGNOSTIC IMAGING ORDERABLES Fi nal Result from Last 3 Months or Most Recently Relevant to Health [place] [address] [place] [address] [facility] [id number] Advance Directives For more information, please contact: [phone] Documents on File Type Date Recorded Patient Nut Feeder Expl anation Advance Directive POA 03/04/2010 Advance Directive Living Will 03/04/2010 * Full Code (Latest Code Status on File) Date Activated Date Inactivated Comments 04/23/2010 8:29 AM 04/23/2010 4:34 PM * Full Code Date Activated Date Inactivated Comments 04/23/2010 6:09 AM 04/23/2010 8:29 AM Care Teams Divinity Teacher Relationship Specialty Start Date End Date Jimena Granados MD PCP - General Family Practice 08/30/22
--- OUTSIDE RECORDS SUMMARY | 2025-07-21 14:54 | XMS_ITS | Encounter Summary ---
Author Organization [employer] Address [address] [place] [address] Care Team Providers Care Medical Technologist Chief Name Role Phone Jimena Granados MD Primary Care Provider [phone] Encounter Details Date Type Department Care Team (Latest Contact Info) Description 09/25/1998 Outpatient Historical [facility] [place] [address] [place] [address] Postmenopausal bleeding (Primary Dx) Social History Tobacco Use Types Packs/Day Years Used Date Smoking Tobacco: Never Assessed Comments Unknown Sex and Gender Information Value Date Recorded Sex Assigned at Female 11/20/2023 8:52 PM TURNING LATHE TENDER Legal Sex Female 5:08 AM TURNING LATHE TENDER Gender Identity Female 11/20/2023 8:52 PM TURNING LATHE TENDER Sexual Orientation Not on file documented as of this encounter Plan of Treatment Not on file documented as of this encounter Visit Diagnoses Diagnosis Postmenopausal bleeding- Primary documented in this encounter Care Teams Medical Technologist Chief Relationship Specialty Start Date End Date Jimena Granados MD PCP - General Family Practice 08/30/22 documented as of this encounter
--- OUTSIDE RECORDS SUMMARY | 2025-07-21 14:54 | XMS_ITS | Encounter Summary ---
Author Organization [employer] Address 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 mention of vaginal wall prolapse (Primary Dx) Social History Tobacco Use Types Packs/Day Years Used Date Smoking Tobacco: Never Assessed Comments Unknown Sex and Gender Information Value Date Recorded Sex Assigned at Female 11/20/2023 8:52 PM CARDIAC SONOGRAPHER Legal Sex Female 5:08 AM CARDIAC SONOGRAPHER Gender Identity Female 11/20/2023 8:52 PM CARDIAC SONOGRAPHER Sexual Orientation Not on file documented as of this encounter Plan of Treatment Not on file documented as of this encounter Visit Diagnoses Diagnosis Uterine prolapse without mention of vaginal wall prolapse- Primary documented in this encounter Care Teams Team Facilitator Relationship Specialty Start Date End Date Jimena Granados MD PCP - General Family Practice 08/30/22 documented as of this encounter
--- OUTSIDE RECORDS SUMMARY | 2025-07-21 14:54 | XMS_ITS | Encounter Summary ---
Author Organization [facility] Address [address] [place] [address] Care Team Providers Care Electrical High Tension Tester Name Role Phone Jimena Granados MD Primary Care Provider [phone] Encounter Details Date Type Department Care Team (Latest Contact Info) Description 05/04/2009 Outpatient Historical [facility] [place] [address] [place] [address] Special Screening for Osteoporosis Social History Tobacco Use Types Packs/Day Years Used Date Smoking Tobacco: Never Assessed Comments Unknown Sex and Gender Information Value Date Recorded Sex Assigned at Female 11/20/2023 8:52 PM VP OF TECHNOLOGY Legal Sex Female 5:08 AM VP OF TECHNOLOGY Gender Identity Female 11/20/2023 8:52 PM VP OF TECHNOLOGY Sexual Orientation Not on file documented as [...] AM CDT Narrative 05/04/2009 10:15 AM CDT [place] [address] [place] [address] Admit Date: 05/04/2009 ARIA MOON Sex: F Admit Prov: KEVIN COBURN Date: 1945 Primary Care Prov: CMRN: [id number] Room: [facility]: [address] [place] [address] IMAGING SERVICES Ordering Prov: N/A Accession Number: [id number] Interpretation Examination: Bone Density Study (DEXA) Clinical [...] Procedure Note Immanuel Carrasco MD - 05/04/2009 [facility] [place] [address] [place], [place] [address] Admit Date: 05/04/2009 ARIA MOON Sex: F Admit Prov: KEVIN COBURN Date: 1945 Primary Care Prov: CMRN: [id number] Room: [facility]: [address] [place] [address] IMAGING SERVICES Ordering Prov: N/A Interpretation Examination: [...] Electronically signed by: IMMANUEL CARRASCO 05/04/2009 10:14 Kevin Coburn MD DIAGNOSTIC IMAGING ORDERABLES Fi [...] osteoporosis documented in this encounter Care Teams Electrical High Tension Tester Relationship Specialty Start Date End Date Jimena Granados MD PCP - General Family Practice 08/30/22 documented as of this encounter
--- OUTSIDE RECORDS SUMMARY | 2025-07-21 14:54 | XMS_ITS | Encounter Summary ---
Author Organization [facility] Address [address] [place] [address] Care Team Providers Care Crimping Press Operator Name Role Phone Jimena Granados MD Primary Care Provider [phone] Encounter Details Date Type Department Care Team (Late st Contact Info) Description 05/12/2003 Inpatient Historical [facility] Gwen Penn MD [address] [facility] [address] [place] [address] VAGINAL ENTEROCELE (Primary Dx) Social History Tobacco Use Types Packs/Day Years Used Date Smoking Tobacco: Never Assessed Comments Unknown Sex and Gender Information Value Date Recorded Sex Assigned at Female 11/20/2023 8:52 PM INDUSTRIAL ROBOTICS MECHANIC Legal Sex Female 5:08 AM INDUSTRIAL ROBOTICS MECHANIC Gender Identity Female 11/20/2023 8:52 PM INDUSTRIAL ROBOTICS MECHANIC Sexual Orientation Not on file documented as of this encounter Plan of Treatment Not on file documented as of this encounter Visit Diagnoses Diagnosis Vaginal enterocele, congenital or acquired- Primary documented in this encounter Care Teams Crimping Press Operator Relationship Specialty Start Date End Date Jimena Granados MD PCP - General Family Practice 08/30/22 documented as of this encounter
--- OUTSIDE RECORDS SUMMARY | 2025-07-21 14:54 | XMS_ITS | Encounter Summary ---
Author Organization [employer] Address [address] [place] [address] Care Team Providers Care Police Worker Name Role Phone Jimena Granados MD Primary Care Provider Encounter Details Date Type Department Care Team (Late st Contact Info) Description 06/23/2003 Outpatient Historical [facility] Gwen Penn MD [address] [facility] [place] [address] [place] [address] RENAL & URETERAL DIS NOS (Primary Dx) Social History Tobacco Use Types Packs/Day Years Used Date Smoking Tobacco: Never Assessed Comments Unknown Sex and Gender Information Value Date Recorded Sex Assigned at Female 11/20/2023 8:52 PM DIRECTOR OF DIVERSITY AND INCLUSION Legal Sex Female 5:08 AM DIRECTOR OF DIVERSITY AND INCLUSION Gender Identity Female 11/20/2023 8:52 PM DIRECTOR OF DIVERSITY AND INCLUSION Sexual Orientation Not on file documented as of this encounter Plan of Treatment Not on file documented as of this encounter Visit Diagnoses Diagnosis Unspecified disorder of kidney and ureter- Primary documented in this encounter Care Teams Police Worker Relationship Specialty Start Date End Date Jimena Granados MD PCP - General Family Practice 08/30/22 documented as of this encounter
--- OUTSIDE RECORDS SUMMARY | 2025-07-21 14:54 | XMS_ITS | Encounter Summary ---
Author Organization [employer] Address [address] [place] [address] Care Team Providers Care Needle Grader Name Role Phone Jimena Granados MD Primary Care Provider [phone] Encounter Details Date Type Department Care Team (Late st Contact Info) Description 05/28/2003 Outpatient Historical [facility], [address] Gwen Penn MD [address] [facility] [address] [place] [address] URIN TRACT INFECTION NOS (Primary Dx) Social History Tobacco Use Types Packs/Day Years Used Date Smoking Tobacco: Never Assessed Comments Unknown Sex and Gender Information Value Date Recorded Sex Assigned at Female 11/20/2023 8:52 PM TEXTILE MACHINE MECHANIC Legal Sex Female 5:08 AM TEXTILE MACHINE MECHANIC Gender Identity Female 11/20/2023 8:52 PM TEXTILE MACHINE MECHANIC Sexual Orientation Not on file documented as of this encounter Plan of Treatment Not on file documented as of this encounter Visit Diagnoses Diagnosis Urinary tract infection, site not specified- Primary documented in this encounter Care Teams Needle Grader Relationship Specialty Start Date End Date Jimena Granados MD PCP - General Family Practice 08/30/22 documented as of this encounter
--- OUTSIDE RECORDS SUMMARY | 2025-07-21 14:54 | XMS_ITS | Encounter Summary ---
Author Organization [employer] Address [address] [place] [address] Care Team Providers Care Tunnel Kiln Repairer Name Role Phone Jimena Granados MD Primary Care Provider [phone] Encounter Details Date Type Department Care Team (Late st Contact Info) Description 04/30/2003 Outpatient Historical [facility] [address] [place] [address] Sunil Miles Social History Tobacco Use Types Packs/Day Years Used Date Smoking Tobacco: Never Assessed Comments Unknown Sex and Gender Information Value Date Recorded Sex Assigned at Female 11/20/2023 8:52 PM FOREST SCIENTIST Legal Sex Female 5:08 AM FOREST SCIENTIST Gender Identity Female 11/20/2023 8:52 PM FOREST SCIENTIST Sexual Orientation Not on file documented as of this encounter Plan of Treatment Not on file documented as of this encounter Visit Diagnoses Not on filedocumented in this encounter Care Teams Tunnel Kiln Repairer Relationship Specialty Start Date End Date Jimena Granados MD PCP - General Family Practice 08/30/22 documented as of this encounter
--- OUTSIDE RECORDS SUMMARY | 2025-07-21 14:55 | XMS_ITS | Patient Health Record ---
Author Organization [employer] kristen Address [address] [place], [place] [address] Care Team Providers Care Ems Manager Name Role Phone Gm Felicitas Primary Care Provider Wicho White Unavailable [phone] FERMÍN MYLES, KORINA Unavailable Unava ilable ALLERGIES Allergen (clinical drug ingredient) Drug/Non Drug Allergy documented on EMR Reaction Allergy Type Onset Date Status penicillin Unknown Drug Allergy Active REASON FOR REFERRAL No Information MEDICATIONS Medication SIG (Take, Route, Frequency, Duration) Notes Start Date End Date Status multivitamin Multiple Vitamins 1 cap(s) orally once a day Active Glucosamine and Chondroitin with MSM 400 mg-500 mg-250 mg 1 tab(s) orally once a day 10/09/2024 10/09/2024 Active Buspar 7.5mg bid Active ibuprofen 200 mg 2 cap(s) orally prn 10/09/2024 Active Synthroid 75 mcg (0.075 mg) 1 tab(s) orally once a day Active PROBLEMS Problem Type ICD Code Onset Dates Problem Status W/U Status Risk SNOMED Code Notes Problem Polyarthralgia (719.49) Active confirmed Polyarthralgia (58375845) Problem Myalgia (729.1) Active confirmed Myalgi a (98149159) Problem 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 (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) Problem Cough (786.2) Active confirmed Cough (4 5541172) Problem PMR (725) Active confirmed Polymyalgia rheumatica (55678513) Problem MONITOR MED (V58.69) Active confirmed Long-term drug therapy (789246165) Problem Osteoporosis NOS (733.00) Active confirmed Osteoporosis (66351677) Problem HYPOTHYROID (244.9) Active confirmed Hypothyroid (28031391) Problem MALAISE AND FATIGUE NEC (780.79) Active confirmed Malaise and fatigue (980111939) Problem OSTEOPOROSIS NEC (733.09) Active confirmed Osteoporosis (11786829) Problem BURSITIS (727.3) Active confirmed Bursi tis (99230957) Problem Fatigue (780.79) Active confirmed Fatig ue (08509912) PLAN OF TREATMENT Pending Test Test Name Order Date Rheumatoid factor (IH) 05/21/2010 KUNAL Panel (KNUAL+KYUNG+Scl 70+SjoSSA+SjoSSB) 05/21/2010 T-4, FREE Lab carlos only 01/28/2011 Bursa - gr. trochanteric (right) 012 AST (IH) 07/16/2013 ALT (IH) 07/16/2013 Creatinine (IH) 07/16/2013 bursa-gr.trochanteric (left) 02/01/2012 bursa-gr.trochanteric (left) 04/17/2012 Insurance Providers Payer Name Payer Address Payer Phone Subscriber Number Group Number Insured Name Patient Relationship to Insured Coverage Start Date Coverage End Date MEDICARE ASSIGNMENT [address] [place] [address] [id number] Aria Moon Self - patient is the insured 1 [facility] [address] [place] [address] [id number] PLAN F Aria Moon Self - patient is the insured 1 MEDICAL (GENERAL) HISTORY Medical History History ICD Code bruises easily blurred vision vision - flashes vision - halos hayfever sinus problems thyroid disease irregular heart beat low blood pressure chronic cough poor appetite constipation hemorrhoids frequent urination Lack of bladder control vaginal infections neuropathy lyme disease
--- OUTSIDE RECORDS SUMMARY | 2025-07-21 14:55 | XMS_ITS | Clinical Summary ---
Author Organization [facility] Address [address] [place] [address] Care Team Providers Care Retail Tire Sales Manager Name Role Phone Freddy TIWARI MD, Con Brown Primary Care Provider Allergies Active Allergy Reactions Criticality Noted Date Comments Gluten Unknown 08/17/2022 Penicillins Unknown 01/11/2010 Reaction as child -- told by mother --as an adult did take a single dose of homeopathic penicillin and had no reaction. Soy Unknown 08/17/2022 Venom-Honey Bee Unknown 08/17/2022 Medications pravastatin (PRAVACHOL) 20 mg tablet pravastatin 20 mg tablet TAKE 1 TABLET BY MOUTH DAILY Active ezetimibe (ZETIA) 10 mg tablet Take 1 tablet (10 mg total) by mouth daily 4 Active donepeziL (ARICEPT) 10 mg tablet TAKE ONE TABLET BY MOUTH DAILY WITH FOOD 90 tablet 3 5 Active ibuprofen (ADVIL,MOTRIN) 600 mg tablet 5 Active FLUoxetine (PROzac) 40 mg capsule 5 Active levothyroxine (SYNTHROID) 75 mcg tablet 5 Active levothyroxine (SYNTHROID) 50 mcg tablet 5 Active Active Problems Problem Noted Date Diagnosed Date Alzheimer's disease 03/25/2024 Assessment & Plan (02/11/2025 12:55 PM CDT): Overall, stable cognitive testing. Continue donepezil/Aricept 10 mg daily. Continue with physical therapy and occupational therapy. She is not interested in pursuing anti-amyloid therapies. Follow-up in 6 months or sooner if need be. Assessment & Plan (08/14/2024 11:00 AM CITY MAIL CARRIER): Continue donepezil/Aricept 10 mg daily. We will [...] on file Legal Sex Female 12:17 PM CITY MAIL CARRIER Gender Identity Not on file Sexual Orientation Not on file Occupation Industry Job Start Date Job End Date Retired Not on file Not on file Not on file Obstetrics History Last Filed Vital Signs Vital Sign Reading Time Taken Comments Blood Pressure 124/83 02/11/2025 12:23 PM CDT Pulse 102 02/11/2025 12:23 PM CDT Temperature 36.3 C (97.4 F) 02/11/2025 12:23 PM CDT Respiratory Rate - - Oxygen Saturation 96% 02/11/2025 12:23 PM CDT Inhaled Oxygen Concentration - - Weight 64 kg (141 lb) 02/11/2025 12:23 PM CDT Height 160 cm (5' 3) 02/11/2025 12:23 PM CDT Body Mass Index 24.98 02/11/2025 12:23 PM CDT Plan of Treatment Health Maintenance Due Date Last Done Comments Depression Screening 1945 Fall Risk Assessment 1945 Hepatitis C Screening 1945 Hepatitis B Screening 1964 Well Visit 65+ 2011 Osteoporosis Screening-Bone Density Scan 03/28/2019 03/28/2017, 03/28/2017, 05/04/2009 Covid-19 Vaccine (2024-2 6 season) 2025 09/09/2021, 12/18/2020, 11/27/2020 Influenza Vaccine (#1) 2025 0, 07/15/2019, 07/03/2018, Additional history exists DTaP/Tdap/Td [...] 7:55 PM CDT EXAM: Bone mineral density [facility]. HISTORY: Status post hysterectomy at the age of 58. Patient currently taking calcium and vitamin D. DXA BMD was done at [facility] on a [employer] CI. Precision testing at this site has [...] Requesting: KEVIN COBURN M.D. Requesting Requesting ID: [id number] Attending Attending ID: [id number] Completed Time: 03/28/2017 2:55 PM Dictated Time: [...] Margarita - 03/28/2017 EXAM: Bone mineral density [facility]. HISTORY: Status post hysterectomy at the age of 58. Patient currently taking calcium and vitamin D. DXA BMD was done at [facility] on a [employer] CI. Precision testing at this site has [...] Requesting: KEVIN COBURN M.D. Requesting Requesting ID: [id number] Attending Attending ID: [id number] Completed Time: 03/28/2017 2:55 PM Dictated Time: [...] Recently Relevant to Health Maintenance Insurance MEDICARE AARP [facility] REF [facility] MEDICARE ADVANTAGE Care Teams Retail Tire Sales Manager Relationship Specialty Start Date End Date Con Hayes III, MD [address] [place] [address] PCP - General Family Medicine 07/17/24
--- OUTSIDE RECORDS SUMMARY | 2025-07-21 14:55 | XMS_ITS | Data Portability ---
Author Organization [email or web address], Medical Address [address] [place] [id number] Care Team Providers Care Replenishment Associate Name Role Phone CON CHAPA Primary Care Provider Unavailabl e Assessment No assessment recorded. Plan of Treatment Reminders Order Date Submit Date Provider Last Modified By Organization Details Last Modified Time Details Appointments None recorded. Lab hepatic function panel, serum 2024 025 [facility], [address], [place], [address], 5 20:20:09 hepatitis A igm Ab, serum 2024 025 [facility], [address], [place], [address], 5 20:20:12 T3, free, serum or plasma 2024 025 [facility], [address], [place], [address], 5 20:20:11 TSH, serum or plasma 2024 025 [facility], [address], [place], [address], 5 20:20:10 T4, free, serum 2024 025 [facility], [address], [place], [address], 5 20:20:10 T3, reverse, serum 2024 025 [facility], [address], [place], [address], 5 20:20:11 lipid panel, serum 2024 025 [facility], [address], [place], [address], 5 13:14:24 collagen cross-linke d C-telopepti de (ctx), serum 2024 025 [facility], [address], [place], [address], 5 17:14:32 vitamin D, 25-hydroxy, total, serum 2024 025 [facility], [address], [place], [address], 5 17:14:28 hepatic function panel, serum 2024 025 [facility], [address], [place], [address], 5 17:14:28 hepatitis (A+B+C) panel, serum 2024 025 [facility], [address], [place], [address], 5 17:14:27 T3, free, serum or plasma 2024 025 [facility], [address], [place], [address], 5 17:14:31 TSH, serum or plasma 2024 025 [facility], [address], [place], [address], 5 17:14:30 T4, free, serum 2024 025 [facility], [address], [place], [address], 17:14:30 T3, reverse, serum 2024 025 [facility], [address], [place], [address], 5 17:14:31 unlisted lab - thyroid peroxidase and thyroglobul in antibodies 2024 [facility], [address], [place], [address], 5 17:14:32 lipase, serum or plasma 2024 025 [facility], [address], [place], [address], 5 17:14:29 amylase, serum or plasma 2024 025 [facility], [address], [place], [address], 5 17:14:29 iron + TIBC + ferritin, serum 2024 025 [facility], [address], [place], [address], 5 17:14:27 Referral None recorded. Procedures None recorded. Surgeries None recorded. Imaging MAMMO, screening, digital, bilateral [address], [address] [place] [address], [address], 5 11:37:48 DEXA, axial skeleton + vertebral fracture assessment 2024 025 [email or web address], [address], [place], [address], 5 11:37:48 Medication Orders compounded medication 2024 025 [facility], [address], [place], [place], [id number], 5 11:32:34 dronabinol 5 mg capsule 2023 024 [facility], [address], [place], [place], [id number], 16:15:50 fluoxetine 40 mg capsule 2023 024 [facility], [address], [place], [place], [id number], 17:53:06 Patient TargetsNo targets recorded. Patient Instructions Encounter Date Encounter Id Patient Instructions Last Modified By Organization Details Last Modified Time 06/06/2024 [id number] Schedule: Extend ed with Con in late [...] rollator Schedule Acupuncture with Елена to include Dutch Scalp Acupuncture for dizziness and tinnitus, as well as [place] Therapy for nausea schedule 3 sessions a [...] D3/K2 5000 iu a day Begin Pro Breckenridge as directed (1 packet in the morning and 1 in the evening) SUpplements: Pro Edson - 1 pack in the morning and 1 pack at night D3/K2 5000 iu a day Monopure 1 a day Truadapt 1 in the morning and in the early afternoon Spectralyte 1 dropperful in water a day hroca Not available 06/06/2024 17:00:24 12/24/2024 [id number] Schedule: [facility] in January 2025 Non fasting labs ordered [...] D3/K2 5000 iu a day Begin Pro Breckenridge as directed (1 packet in the morning and 1 in the evening) Supplements: Pro Edson - 1 pack in the morning and 1 pack at night D3/K2 5000 iu a day Monopure 1 a day Truadapt 1 in the morning and in the early afternoon Spectralyte 1 dropperful in water a day hroca Not available 12/24/2024 10:59:54 01/17/[id number] [facility] CE: Get necessary vaccines at your local pharmacy. Covid/ Flu: (once yearly) Pneumovax: 65+ (19-64 for immune compromised or other specifics), Shingrix: 50+ (2 doses 2-6 months apart) TDAP: every 10 years (Boostrix for 65+) Mammogram: biennial screening Pap: generally 21-65 every 5 years if normal cytology and negative HPV status Bone Density: all 65+ women, postmenopausal women younger than 65 years who are at increased risk of osteoporosis, as determined by a formal clinical risk assessment tool Cologuard: 45+ at average risk, every 3 years Colonoscopy: all adults 45-75, every 10 years if normal, colonoscopy for high risk always FOLLOW UP: Fasting labs at next convenience to check your cholesterol See Dr. Chapa on 01/28 [email or web address] Not available 01/20/2025 10:54:34 01/28/202520110509 Schedule: Non fasting labs ordered on 03/06/25; will be completed at an outside [facility]. Follow up phone call after labs return Improving [...] dispense daily medications and supplements Reduce LIghtheadedness and Increase Energy Use a rollator 1. Be careful and rise slowly 2. Increase fluid intake to 80 ounces a day 3. Begin Truadapt 1 in the morning and 1 at noon 4. If no improvement add Spectralyte 1 dropperful to water in the morning 5. Work to avoid caffeine after noon 6. Continue to take levothyroxine 75mcg a day 7. Recheck labs on March 06 Improving Bone Health D3/K2 5000 iu a [...] in water a day hroca Not available 01/28/2025 11:14:05 06/26/2025 [id number] Schedule: Non fasting labs ordered on 03/06/25; will be completed at an outside [facility]. Follow up phone call after labs return Improving [...] dispense daily medications and supplements Reduce LIghtheadedness and Increase Energy Use a rollator 1. Be careful and rise slowly 2. Increase fluid intake to 80 ounces a day 3. Begin Truadapt 1 in the morning and 1 at noon 4. If no improvement add Spectralyte 1 dropperful to water in the morning 5. Work to avoid caffeine after noon 6. Continue to take levothyroxine 75mcg a day 7. Explore using Inflammacore 1 scoop in shakes with Truadapt - Hold the other supplements for now 8. Use P6 (sea sickness) bracelets to stimulate for dizziness 9. We can do a study of the brain to look at blood flow in the arteries at the back of the neck. L:et me know if you'd like that order Improving Bone Health D3/K2 5000 iu a day Begin Pro Breckenridge as directed (1 packet in the morning and 1 in the evening) Supplements: Pro Edson - 1 pack in the morning and 1 pack at night D3/K2 5000 iu a day Monopure 1 a day Truadapt 1 in the morning and in the early afternoon Spectralyte 1 dropperful in water a day hroca Not available 07/04/2025 09:23:29 Reason for Referral None Reported. Results Created Date Observation Date Name Description Value Unit Range Abnormal Flag Note LastModifiedBy Organization Detail LastModifiedTime 01/15/2001/18/2025 IRON, TIBC AND MOOSE TIN PANEL iron, total 194 mcg/d L 45-160 high Not Available [facility] [address] [place] [address], [address], 01/18/2025 17:14:26 01/15/202025 IRON, TIBC AND MOOSE TIN PANEL iron binding capacity 366 mcg/d L_(ca lc) 250-45 0 normal Not Available [address], [address], 01/18/2025 17:14:26 01/15/20 25 01/18/2025 IRON, TIBC AND MOOSE TIN PANEL % saturation 53 %_(ca lc) 16-45 high Not Available [address] [address] [place], [address], 01/18/2025 17:14:26 01/15/20 25 01/18/2025 IRON, TIBC AND MOOSE TIN PANEL ferritin 56 NG/mL 16-288 normal Not Available [address], [address], 01/18/2025 17:14:26 01/15/20 25 01/18/2025 HEPAT ITIS PANEL (REFL ) hepatitis A Ab, total (refl) REACTI VE non-re active abnormal Our recor ds indic ate that you have order ed a clien t custo m refle x order code. Only the initi al test was perfo rmed becau se we do not have a clien t custo m refle x testi ng autho rizat ion reque st form on file for you. Pleas e conta ct a clien t servi ce repre senta tive if you would like addit ional testi ng done on this patie nt or conta ct your sales repre senta tive to obtai n a clien t custo m refle x testi ng autho rizat ion reque st form. Not Available [facility] [address] [address] [place], [address], 01/18/2025 17:14:27 01/15/20 25 01/18/2025 HEPAT ITIS PANEL (REFL ) hepatitis B surface antibody ql REACTI VE non-re active abnormal Not Available [address] [place], [address], 01/18/2025 17:14:27 01/15/20 25 01/18/2025 HEPAT ITIS PANEL (REFL ) hepatitis B surface antigen NON-RE ACTIVE non-re active normal [facility] torrey marshallantoine rodriguez e refer to http: //[facility] stdia gnost ics.c om/fa q/FAQ 202 (This link is being provi ded for infor matio nal/ educa simone l purpo ses only. ) Not Available [address] [address] [place], [address], 01/18/2025 17:14:27 01/15/20 25 01/18/2025 HEPAT ITIS PANEL (REFL ) hepatitis B core Ab total NON-RE ACTIVE non-re active normal For [facility] antoine beal e refer to http: //[facility] stdia gnost ics.c om/fa q/FAQ 202 (This link is being provi ded for infor matio nal/ educa simone l purpo ses only. ) Not Available [address], [address], 01/18/2025 17:14:27 01/15/20 25 01/18/2025 HEPAT ITIS PANEL (REFL ) hepatitis C antibody NON-RE ACTIVE non-re active normal HCV antib concepción was non-r eacti ve. There is no labor atory evide nce of HCV infec tion. In most cases , no furth er actio n is requi red. Howev er, if recen t HCV expos ure is suspe cted, a test for HCV RNA (test code 13996 ) is sugge sted. [facility] jaycedeny joannanu schultz e refer to http: //[facility] stdia gnost ics.c om/fa q/FAQ 22v1 (This link is being provi ded for infor matio nal/ educa simone l purpo ses only. ) Not Available [address] [address] [place], [address], 01/18/2025 17:14:27 01/15/20 25 01/18/2025 VITAM IN D,25- OH,TO JAKOB,I A vitamin D,25-oh,tota l,ia 106 NG/mL 30-100 high Vitam in D Statu s 25-OH Vitam in D: Defic iency : <20 ng/mL Insuf ficie ncy: 20 - 29 ng/mL Optim al: > or = 30 ng/mL For 25-OH Vitam in D testi ng on patie nts on D2-[place] pplem entat ion and patie nts for whom quant itati on of D2 and D3 fract ions is requi red, the [facility] Ass[facility] eD(TM ) 25-OH VIT D, (D2,D 3), LC/MS /MS is recom justice d: order code 16861 (renato ents >2yrs ). See Note 1 Note 1 For addit ional infor antoine zheng refer to http: //[facility] Ford[facility] gnost ics.c om/fa q/FAQ 199 (This link is being provi ded for infor prahsant hernadez/ roberto carlos alvarado purpo ses only. ) Not Available [address], [address], 01/18/2025 17:14:28 01/15/20 25 01/18/2025 HEPAT IC FUNCT ION PANEL protein, total 7.6 g/dL 6.1-8. 1 normal Not Available [address], [address], 01/18/2025 17:14:28 01/15/20 25 01/18/2025 HEPAT IC FUNCT ION PANEL albumin 4.7 g/dL 3.6-5. 1 normal Not Available [address], [address], 01/18/2025 17:14:28 01/15/20 25 01/18/2025 HEPAT IC FUNCT ION PANEL globulin 2.9 g/dL_ (calc ) 1.9-3. 7 normal Not Available [address] [address] [place], [address], 01/18/2025 17:14:28 01/15/20 25 01/18/2025 HEPAT IC FUNCT ION PANEL albumin/glob ulin ratio 1.6 (calc ) 1.0-2. 5 normal Not Available [address], [address], 01/18/2025 17:14:28 01/15/20 25 01/18/2025 HEPAT IC FUNCT ION PANEL bilirubin, total 0.8 mg/dL 0.2-1. 2 normal Not Available [address] [address] [place], [address], 01/18/2025 17:14:28 01/15/20 25 01/18/2025 HEPAT IC FUNCT ION PANEL bilirubin, direct 0.2 mg/dL < or = 0.2 normal Not Available [address] [address] [place], [address], 01/18/2025 17:14:28 01/15/2001/18/2025 HEPAT IC FUNCT ION PANEL bilirubin, indirect 0.6 mg/dL _(chana c) 0.2-1. 2 normal Not Available [address] [address] [place], [address], 01/18/2025 17:14:28 01/15/20 25 01/18/2025 HEPAT IC FUNCT ION PANEL alkaline phosphatase 114 U/L 37-153 normal Not Available [facility] [address] [address] [place], [address], 01/18/2025 17:14:28 01/15/20 25 01/18/2025 HEPAT IC FUNCT ION PANEL AST 34 U/L 10-35 normal Not Available [address] [address] [place], [address], 01/18/2025 17:14:28 01/15/20 25 01/18/2025 HEPAT IC FUNCT ION PANEL ALT 54 U/L 6-29 high Not Available [address], [address], 01/18/2025 17:14:28 01/15/20 25 01/18/2025 AMYLA SE amylase 31 U/L 21-101 normal Not Available [address], [address], 01/18/2025 17:14:29 01/15/20 25 01/18/2025 LIPAS E lipase 28 U/L 7-60 normal Not Available [address], [address], 01/18/2025 17:14:29 01/15/20 25 01/18/2025 TSH TSH 38.87 mIU/L 0.40-4 .50 high Not Available [address], [address], 01/18/2025 17:14:30 01/15/20 25 01/18/2025 T4, FREE T4, free 1.1 NG/dL 0.8-1. 8 normal Not Available [address], [address], 01/18/2025 17:14:30 01/15/20 25 01/18/2025 T3, FREE T3, free 2.2 pg/mL 2.3-4. 2 low Not Available [employer] [address], [address], 01/18/2025 17:14:31 01/15/20 25 01/18/2025 T3 REVER SE, LC/MS /MS T3 reverse, lc/MS/MS 16 NG/dL 8-25 This test was devel oped and its sneha tical perfo rmanc e addy cteri stics have been deter mined by [facility]. It has not been clear ed or appro ravinder by the FDA. This assay has been valid ated pursu ant to the CLIA regul ation s and is used for clini chana purpo ses. Not Available [facility] [address] [address] [address], [place], [address], 01/18/2025 17:14:31 01/15/20 25 01/18/2025 THYRO ID PEROX IDASE AND THYRO GLOBU ROLA ANTIB ODIES thyroglobuli n antibodies <1 IU/mL < or = 1 Not Available [facility] [address] [address] [place], [address], 01/18/2025 17:14:31 01/15/2001/18/2025 THYRO ID PEROX IDASE AND THYRO GLOBU ROLA ANTIB ODIES thyroid peroxidase antibodies <1 IU/mL <9 Not Available [facility] [address] [address] [place], [address], 01/18/2025 17:14:31 01/15/2001/18/2025 C TELOP EPTID E (CTX) C telopeptide (ctx) 293 pg/mL Refer ence Range : NOT ESTAB [...] rate of bone loss. For addit ional jaycer antoine zheng e refer to http: //[facility] gnost ics.c om/fa q/FAQ (This link is being provi ded for infor prashant nal/e ducat ional purpo ses only. ) Not Available [address] [address] [place], [address], 01/18/2025 17:14:32 03/07/20 25 03/12/2025 HEPAT IC FUNCT ION PANEL protein, total 7.4 g/dL 6.1-8. 1 normal Not Available [address], [address], 03/12/2025 20:20:03/07/20 25 03/12/2025 HEPAT IC FUNCT ION PANEL albumin 4.6 g/dL 3.6-5. 1 normal Not Available [address], [address], 03/12/2025 20:20:09 03/07/20 25 03/12/2025 HEPAT IC FUNCT ION PANEL globulin 2.8 g/dL_ (calc ) 1.9-3. 7 normal Not Available [address], [address], 03/12/2025 20:20:09 03/07/20 25 03/12/2025 HEPAT IC FUNCT ION PANEL albumin/glob ulin ratio 1.6 (calc ) 1.0-2. 5 normal Not Available [address], [address], 03/12/2025 20:20:03/07/20 25 03/12/2025 HEPAT IC FUNCT ION PANEL bilirubin, total 0.8 mg/dL 0.2-1. 2 normal Not Available [address], [address], 03/12/2025 20:20:03/07/20 25 03/12/2025 HEPAT IC FUNCT ION PANEL bilirubin, direct 0.2 mg/dL < or = 0.2 normal Not Available [address], [address], 03/12/2025 20:20:03/07/20 25 03/12/2025 HEPAT IC FUNCT ION PANEL bilirubin, indirect 0.6 mg/dL _(chana c) 0.2-1. 2 normal Not Available [address], [address], 03/12/2025 20:20:03/07/20 25 03/12/2025 HEPAT IC FUNCT ION PANEL alkaline phosphatase 93 U/L 37-153 normal Not Available [facility] [address], [address], 03/12/2025 20:20:03/07/20 25 03/12/2025 HEPAT IC FUNCT ION PANEL AST 39 U/L 10-35 high Not Available [address], [address], 03/12/2025 20:20:03/07/20 25 03/12/2025 HEPAT IC FUNCT ION PANEL ALT 64 U/L 6-29 high Not Available [address], [address], 03/12/2025 20:20:03/07/20 25 03/12/2025 TSH TSH 10.34 mIU/L 0.40-4 .50 high Not Available [address], [address], 03/12/2025 20:20:03/07/20 25 03/12/2025 T4, FREE T4, free 1.5 NG/dL 0.8-1. 8 normal Not Available [facility] [address], [address], 03/12/2025 20:20:10 03/07/20 25 03/12/2025 T3, FREE T3, free 2.6 pg/mL 2.3-4. 2 normal Not Available [address], [address], 03/12/2025 20:20:11 03/07/20 25 03/12/2025 T3 REVER SE, LC/MS /MS T3 reverse, lc/MS/MS 20 NG/dL 8- This test was mira lombardi and its sneha tical perfo rmanc e addy cteri stics have been deter mined by [facility]. It has not been clear ed or appro ravinder by the FDA. This assay has been valid ated pursu ant to the CLIA regul ation s and is used for clini hcana purpo ses. Not Available [facility] [address], [place], [address], 03/12/2025 20:20:11 03/07/20 25 03/12/2025 HEPAT ITIS A IGM hepatitis A IgM NON-RE ACTIVE non-re active normal For addit ional infor antoine zheng e refer to http: //[facility] stdia gnost ics.c om/fa q/FAQ (This link is being provi ded for infor prashant nal/ educa simone l purpo ses only. ) Not Available [facility] [address], [place], [address], 03/12/2025 20:20:12 06/26/20 25 06/27/2025 URINA LYSIS , COMPL ETE specific gravity 1.022 1.005- 1.030 normal Not Available [facility] ([facility]) [address] [place], [address], 06/28/2025 06:16:47 06/26/20 25 06/27/2025 URINA LYSIS , COMPL ETE pH 6.0 5.0-7. 5 normal Not Available [facility] ([facility]) [address] [place], [address], 06/28/2025 06:16:47 06/26/20 25 06/27/2025 URINA LYSIS , COMPL ETE urine-color Yellow yellow Not Available [facility] ([facility]) [address] [facility], [place], [address], 06/28/2025 06:16:47 06/26/20 25 06/27/2025 URINA LYSIS , COMPL ETE appearance Cloudy clear abnormal Not Available [facility] ([facility]) [address] [facility], [place], [address], 06/28/2025 06:16:47 06/26/20 25 06/27/2025 URINA LYSIS , COMPL ETE WBC esterase 3+ negati ve abnormal Not Available [facility] ([facility]) [address] [place], [address], 06/28/2025 06:16:47 06/26/20 25 06/27/2025 URINA LYSIS , COMPL ETE protein Trace negati ve/tra ce Not Available [facility] ([facility]) [address] [place], [address], 06/28/2025 06:16:47 06/26/20 25 06/27/2025 URINA LYSIS , COMPL ETE glucose Negati ve negati ve Not Available [facility] ([facility]) [address] [facility], [place], [address], 06/28/2025 06:16:47 06/26/20 25 06/27/2025 URINA LYSIS , COMPL ETE ketones Negati ve negati ve Not Available [facility] ([facility]) [address] [place], [address], 06/28/2025 06:16:47 06/26/20 25 06/27/2025 URINA LYSIS , COMPL ETE occult blood Trace negati ve abnormal Not Available [facility] ([facility]) [address] [place], [address], 06/28/2025 06:16:47 06/26/20 25 06/27/2025 URINA LYSIS , COMPL ETE bilirubin Negati ve negati ve Not Available [facility] ([facility]) [address] [facility], [place], [address], 06/28/2025 06:16:47 06/26/2006/27/2025 URINA LYSIS , COMPL ETE urobilinogen ,semi-qn 0.2 mg/dL 0.2-1. 0 normal Not Available [facility] ([facility]) [address] [place], [address], 06/28/2025 06:16:47 06/26/20 25 06/27/2025 URINA LYSIS , COMPL ETE nitrite, urine Negati ve negati ve Not Available [facility] ([facility]) [address] [place], [address], 06/28/2025 06:16:47 06/26/20 25 06/27/2025 URINA LYSIS , COMPL ETE microscopic examination See below: Micro scopi c was indic ated and was perfo rmed. Not Available [facility] ([facility]) [address] [place], [address], 06/28/2025 06:16:47 06/26/2006/27/2025 URINA LYSIS , COMPL ETE WBC >30 /hpf 0 - 5 abnormal Not Available [facility] ([facility]) [address] [place], [address], 06/28/2025 06:16:47 06/26/2006/27/2025 URINA LYSIS , COMPL ETE RBC 3-10 /hpf 0 - 2 abnormal Not Available [facility] ([facility]) [address] [place], [address], 06/28/2025 06:16:47 06/26/20 25 06/27/2025 URINA LYSIS , COMPL ETE epithelial cells (non renal) 0-10 /hpf 0 - 10 Not Available [facility] ([facility]) [address] [place], [address], 06/28/2025 06:16:47 06/26/20 25 06/27/2025 URINA LYSIS , COMPL ETE epithelial cells (renal) DIRECTOR OF CARDIAC CATH LAB Not Available [facility] ([facility]) [address] [facility], [place], [address], 06/28/2025 06:16:47 06/26/20 25 06/27/2025 URINA LYSIS , COMPL ETE casts None seen /lpf none seen Not Available [facility] ([facility]) [address] [facility], [place], [address], 06/28/2025 06:16:47 06/26/20 25 06/27/2025 URINA LYSIS , COMPL ETE cast type DIRECTOR OF CARDIAC CATH LAB Not Available [facility] ([facility]) [address] [facility], [place], [address], 06/28/2025 06:16:47 06/26/20 25 06/27/2025 URINA LYSIS , COMPL ETE crystals DIRECTOR OF CARDIAC CATH LAB Not Available [facility] ([facility]) [address] [facility], [place], [address], 06/28/2025 06:16:47 06/26/20 25 06/27/2025 URINA LYSIS , COMPL ETE crystal type DIRECTOR OF CARDIAC CATH LAB Not Available [facility] ([facility]) [address] [facility], [place], [address], 06/28/2025 06:16:47 06/26/20 25 06/27/2025 URINA LYSIS , COMPL ETE mucus threads DIRECTOR OF CARDIAC CATH LAB Not Available [facility] ([facility]) [address] [facility], [place], [address], 06/28/2025 06:16:47 06/26/20 25 06/27/2025 URINA LYSIS , COMPL ETE bacteria Few none seen/f ew Not Available [facility] ([facility]) [address] [facility], [place], [address], 06/28/2025 06:16:47 06/26/20 25 06/27/2025 URINA LYSIS , COMPL ETE yeast DIRECTOR OF CARDIAC CATH LAB Not Available [facility] ([facility]) [address] [place], [address], 06/28/2025 06:16:47 06/26/20 25 06/27/2025 URINA LYSIS , COMPL ETE trichomonas DIRECTOR OF CARDIAC CATH LAB Not Available [facility] ([facility]) [address] [facility], [place], [address], 06/28/2025 06:16:47 06/26/20 25 06/27/2025 URINA LYSIS , COMPL ETE comment DIRECTOR OF CARDIAC CATH LAB Not Available [facility] ([facility]) [address] [place], [address], 06/28/2025 06:16:47 06/26/20 25 06/27/2025 URINA LYSIS , COMPL ETE microscopic examination DIRECTOR OF CARDIAC CATH LAB Not Available [facility] ([facility]) [address] [place], [address], 06/28/2025 06:16:47 06/26/2006/28/2025 URINE CULTU RELEODANI NE urine culture, routine Final report Not Available [facility] ([facility]) [address] [place], [address], 06/28/2025 06:16:48 06/26/20 25 06/28/2025 URINE CULTU RE ROUTI NE result 1 COMMEN T Mixed uroge nital yola 10,00 0-25, 000 colon y formi ng units per mL Not Available [facility] ([facility]) [address] [place], [address], 06/28/2025 06:16:48 Result Notes None recorded. 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 Active 2023 Con Chapa MD [address], [place], [address], [place] [facility] 4 15:50:16 Hypothyroid ism 05986867 Active 2023 Con Chapa MD [address], [place], [address], [place] [facility] 4 15:50:18 Osteoporosi s 13383633 Active 2023 Con Chapa MD [address], [place], [address], [place] [facility] 15:50:23 Polymyalgia rheumatica 28384190 Active [address], [place], [address], [place] [facility] 15:39:20 Recurrent stress incontinenc e Active 2023 Shanthi Manning NP [address], [place], [address], [place] [facility] 15:39:45 Depressive disorder 98914623 Active 2023 Shanthi Manning NP [address], [place], [address], [place] [facility] 15:39:57 Benign paroxysmal positional vertigo 317782106 Active 2023 Shanthi Manning NP [address], [place], [address], [place] [facility] 4 15:40:22 Fatigue 73158994 Active 2023 Shanthi Manning NP [address], [place], [address], [place] [facility] 15:40:35 Anxiety 28867099 Active 2023 Shanthi Manning NP [address], [place], [address], [email or web address] 15:40:50 Hyperlipide keke 12174734 Active 2023 Shanthi Manning NP [address], [place], [address], [email or web address] 15:41:02 Non-celiac gluten sensitivity 306174371 Active 2023 Shanthi Manning NP [address], [place], [address], [email or web address] 15:41:26 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 Please review these documents and add these problems to the patient's chart manually as needed. Problem Notes None recorded. Procedures Surgical History Date Name Laterality Status Provider Name and Address Organization Details Recorded Time 10/09/19 Date of Last Mammogram completed [employer] 10/27/2023 11:59:47 Dental Surgery completed [employer] [place] [employer] 10/27/2023 12:00:04 Mammogram completed [employer] [facility] [employer] 10/27/2023 12:00:04 Colonoscopy completed Neda Knowles [place] [facility] [employer] 10/27/2023 12:00:04 Hysterectomy [place] Ndea Knowles [place] [facility] 10/27/2023 12:00:04 Imaging Results None recorded. Procedure Notes None recorded. Medical Equipment None Reported. Allergies Allergen ID Allergen Name Allergen Category Reaction Reaction Severity Criticality Documentation Date Start Date Code Code System Note Provider Name and Address Organization Details Recorded Time 94071 Product containin g penicilli n (product) medicatio n other Not available Not available 10/27/2023 22934 8001 SNOMED Neda Knowles null[place] [facility] 4 11:59:42 87911 lactose food,medi cation other Not available Not available 10/27/2023 6211 RxNorm Neda Knowles null[place] [email or web address] 4 11:59:42 95495 wheat preparati on food,medi cation other Not available Not available 10/27/2023 13065 52 RxNorm Neda Knowles null, [employer] - [place] [employer] 4 11:59:42 Medications Name Sig Start Date Stop Date Status Note LastModified by Organization Details LastModified Time DMSA 600 mg Take 1 capsule the night before you collect the sample 01/25 completed Standard at [facility] is to order 20 mg/kg for patient Not Available Not Available Not Available compounde d medicatio n swish and spit 5mls three times a day 2024 active Not Available Not Available Not Avai lable dmsa 600mg capsule #561026 TAKE 1 CAPSULE THE NIGHT BEFORE YOU COLLECT THE SAMPLE 01/25 completed Not Available Not Available Not Available compounde d medicatio n swish and spit 5mls three times a day 2024 active Not Available Not Available Not Avai lable fluoxetin e 40 mg capsule TAKE ONE CAPSULE BY MOUTH EVERY DAY 2024 active MARIS: 06/26/25 NOV: not schedule d refill for 6 mo -zoo director Not Available Not Available Not Available prednison e 10 mg tablet TAKE 1 TABLET BY MOUTH EVERY DAY FOR 14 DAYS 12/01 completed Not Available Not Available Not Available donepezil 5 mg tablet Take 1 tablet every day by oral route. 06/06 completed Not Available Not Available Not Available dronabino l 5 mg capsule Take 1 capsule by oral route for 30 days. 05/21 completed Not Available Not Available Not Available donepezil 10 mg tablet active Not Available Not Available Not Available sulfameth oxazole 800 mg-trimet hoprim 160 mg tablet Take 1 tablet every 12 hours by oral route for 5 days. 05/21 completed Not Available Not Available Not Available levothyro xine 25 mcg tablet 12/01 completed Not Available Not Available Not Available levothyro xine 75 mcg tablet Take 1 tablet every day by oral route for 30 days. 03/18 completed Not Available Not Available Not Available Macrobid 100 mg capsule Take 1 capsule every 12 hours by oral route for 5 days. 2024 active Not Available Not Available Not Avai lable levothyro xine 100 mcg tablet TAKE 1 TABLET BY MOUTH ONCE DAILY WITH A 0.025MG TABLET FOR A TOTAL OF 0.125MG DAILY. 12/01 completed Not Available Not Available Not Available levothyro xine 88 mcg tablet TAKE ONE TABLET BY MOUTH DAILY 2024 active MARIS: 01/28/25 NOV: not schedule d refill for 2 mo -zoo director Not Available Not Available Not Available alprazola m 0.25 mg tablet TAKE 1 TABLET BY MOUTH EVERY DAY NEEDED 01/25 completed Not Available Not Available Not Available meclizine 25 mg tablet TAKE ONE TABLET BY MOUTH THREE TIMES DAILY 05/21 completed MARIS: 01/28/25 NOV: not schedule d -zoo director Not Available Not Available Not Available levothyro xine 50 mcg tablet TAKE ONE TABLET BY MOUTH DAILY 01/20 completed MARIS 12/24/24. NOV not schedule d. Refill for 6 months. -or Not Available Not Available Not Available ibuprofen 400 mg tablet 05/21 completed Not Available Not Available Not Available pravastat in 20 mg tablet TAKE ONE TABLET BY MOUTH ONCE DAILY 09/22/ 2025 active Not Available Not Available Not Avai lable methylpre dnisolone 4 mg tablets in a dose pack FOLLOW PACKAGE DIRECTIO NS 12/01 completed Not Available Not Available Not Available fluoxetin e 20 mg capsule TAKE 1 CAPSULE BY MOUTH EVERY DAY IN THE MORNING 04/17 completed Not Available Not Available Not Available B-complex with vitamin C tablet TAKE ONE TABLET BY MOUTH DAILY 2024 active MARIS: 06/26/25 NOV: not schedule d refill for 6 mo -zoo director Not Available Not Available Not Available escitalop roberta 20 mg tablet TAKE 1 TABLET BY MOUTH EVERY DAY 12/01 completed Not Available Not Available Not Available ezetimibe 10 mg tablet TAKE ONE TABLET BY MOUTH DAILY 2024 active Not Available Not Available Not Avai lable memantine 10 mg tablet TAKE 1 TABLET BY MOUTH TWICE DAILY 12/01 completed Not Available Not Available Not Available chlorhexi dine gluconate 0.12 % mouthwash SWISH AND SPIT 15 ML BY MOUTH TWICE DAILY active Not Available Not Available No t Available calcium 600 mg (as carbonate )-vitamin D3 10 mcg (400 unit) tablet TAKE ONE TABLET BY MOUTH TWICE DAILY 2024 active MARIS: 06/26/25 NOV: not schedule d refill for 6 mo -zoo director Not Available Not Available Not Available Vitamin D3 50 mcg (2,000 unit) tablet TAKE TWO TABLETS BY MOUTH DAILY 2024 active Not Available Not Available Not Avai lable Fish Oil 1,000 mg (120 mg-180 mg) capsule Duplicat ed script 2023 active MARIS 06/06/24. NOV not schedule d. Refill for 5 months. -or Not Available Not Available Not Available Tab-A-Vit e 400 mcg tablet TAKE ONE TABLET BY MOUTH DAILY 2024 active Not Available Not Available Not Avai lable vitamin D2 20 mcg-vitam in K1 120 mcg/4 drops oral active MARIS 06/06/24. NOV not schedule d. Refill for 5 months. -or Not Available Not Available Not Available Vitals Date Recorded Body height Body mass index (BMI) Body weight Body temperature Heart rate Oxygen saturation Oxygen saturation in Arterial blood by Pulse oximetry Systolic And Diastolic Provider Name and Address Organization Details Last Updated DateTime 5 162.56 cm 24.1 kg/m2 39348.3 3 g 97.6 [degF] 91 /min 95 % 95 % 129/87 mm[Hg] Selma Crocker [email or web address] 5 12:43:37 Date Recorded Body height Provider Name an d Address Organization Details Last Updated DateTime 06/06/2024 162.56 cm Victor Manuelyekristen [address] [facility], [place], [address], [place] [email or web address] 06/06/2024 16:08:24 Date Recorded Body height Body mass index (BMI) Body weight Heart rate Respiratory rate Oxygen saturation Oxygen saturation in Arterial blood by Pulse oximetry Systolic And Diastolic Provider Name and Address Organization Details Last Updated DateTime 162.56 cm 25.3 kg/m2 89228.2 3 g 89 /min 14 /min 96 % 96 % 133/76 mm[Hg] Stefani joanna [address] [facility], [place], [address], [place] [email or web address] 17:08:04 Social History Question Answer Notes LastModified by Organizat ion Details LastModified Time Tobacco Smoking Status Never Smoker Neda Knowles ashwin, [email or web address] 10/27/2023 11:59:58 Have There Been Any Changes To Your Family Or Social Situation? Yes Information not available 10/27/2023 How Many Children Do You Have? 3 Information not available 10/27/2023 Do You Have Any Pets? Yes Information not available 10/27/2023 Do You Have Any Siblings? Yes Information not available 10/27/2023 Are There Any Smokers In Your House? No Information not available 01/17/2025 Sex: Unknown Functional Status Question Answer Note LastModified by Organization D etails LastModified Time What is your level of alcohol consumption? None Information not available 01/17/2025 Mental Status None recorded. Family History Relationship Description Onset Age of this Age Resolved Age Notes LastModified by Organization Details LastModified Time Mother Myocardial infarction Not available 10/27 11:59:35 Mother Family history of stroke Not available 2023 11:59:35 Mother Mental disorder Not available 2023 11:59:35 Unspecified Relation Family history of malignant neoplasm [email or web address] Not available 2023 11:59:35 Maternal Grandmother Dementia [email or web address] Not available 10/27 11:59:35 Maternal Grandmother Mental disorder [email or web address] Not available 2023 11:59:35 Sister Dementia Not available 10/27/2023 11:59:35 Sister Diabetes mellitus [email or web address] Not available 2023 11:59:35 Sister Food intolerance [email or web address] Not available 10/09 11:59:35 Father Dementia Not available 10/27/2023 11:59:35 Medical History Condition Response Recurrent UTIs Y Food intolerance Y Back Pain Y Arthritis Y Anxiety Y Heart Murmur Y High Cholesterol Y Dementia Y Depression Y Hypothyroidism Y Autoimmune Disease Y Gynecological History Statement/Question Response Did the [...] 1 completed Shanthi Manning NP [address] , [place], [address], [email or web address] 11/14/2023 15:42:40 Influenza, MDCK, trivalent, PF 0 completed Shanthi Manning NP [address], [place], [address], [email or web address] 11/14/2023 15:43:11 pneumococcal polysaccharide PPV23 [address], [place], [address], [email or web address] 11/14/2023 15:43:49 Pneumococcal conjugate PCV 13 5 completed Shanthi Manning NP [address], [place], [address], [email or web address] 11/14/2023 15:45:47 pneumococcal polysaccharide PPV23 3 completed Shanthi Manning NP [address] [facility], [place], [address], [email or web address] 11/14/2023 15:46:19 SARS-COV-2 (COVID-19) vaccine, UNSPECIFIED completed Shanthi Manning NP [address] , [place], [address], [facility] [employer] 11/14/2023 15:47:04 SARS-COV-2 (COVID-19) vaccine, UNSPECIFIED completed Shanthi Manning NP [address] [facility], [place], [address], [email or web address] 11/14/2023 15:47:21 Past Encounters Encounter ID Performer Location Encounter Start Date Encounter Closed Date Diagnosis/Indication Diagnosis SNOMED-CT Code Diagnosis ICD10 Code Diagnosis IMO Codes Diagnosis Note [id number] Con Chapa MD [address] [address] 10/27/2023 09:55:56 10/27/2023 12:01:12 [id number] Con Chapa MD [address] [address] 11/09/2023 15:23:46 11/10/2023 10:30:15 Dementia 34025514 F03.90 Mario thyroiditis 21 522474 E06.3 Hypothyroidism 50345828 E03.9 Osteoporosis 66930401 M8 1.0 Arterioscl erotic vascular disease 36850130 I70.90 [id number] Shanthi Manning NP [address] [address] 12/01/2023 11:47:43 12/01/2023 14:39:01 Adult health examination 720846791 Z00.00 Recurrent falls 69043578 2 R29.6 Hypothyroidism 08300663 E03.9 Depressive disorder 3548 9007 F32.A [id number] Con Chapa MD [address] [address] 01/10/2024 15:23:06 01/10/2024 17:03:30 Dementia 36661895 F03.90 Mario thyroiditis 21 763106 E06.3 Hypothyroidism 62964202 E03.9 Osteoporosis 61373909 M8 1.0 Arterioscl erotic vascular disease 09097827 I70.90 [id number] Con Chapa MD [place] [id number] 04/17/2024 14:31:27 04/17/2024 16:45:18 Dementia 36656568 F03.90 Mario thyroiditis 21 979399 E06.3 Hypothyroidism 80280177 E03.9 Osteoporosis 95911511 M8 1.0 Arterioscl erotic vascular disease 18769751 I70.90 Benign par oxysmal positional vertigo 950559091 H81.13 [id number] Con Chapa MD [place] [id number] 06/06/2024 16:07:37 06/07/2024 12:32:33 Dementia 71553022 F03.90 Mario thyroiditis 21 730351 E06.3 Hypothyroidism 09038686 E03.9 Osteoporosis 30158236 M8 1.0 Arterioscl erotic vascular disease 42484596 I70.90 Benign par oxysmal positional vertigo 388766013 H81.13 Depressive disorder 3548 9007 F32.A Loss of appetite 6133334 6 R63.0 [id number] Con Chapa MD [address] [address] 12/24/2024 08:55:24 12/25/2024 12:14:31 Dementia 87249038 F03.90 Mario thyroiditis 21 642645 E06.3 Hypothyroidism 34876379 E03.9 Osteoporosis 00099151 M8 1.0 Arterioscl erotic vascular disease 19129032 I70.90 Benign par oxysmal positional vertigo 898404203 H81.13 Depressive disorder 3548 9007 F32.A Loss of appetite 0379913 6 R63.0 Pancreatitis 05349676 K8 5.90 Aspartate aminotransferase serum level above reference range 077978087 R74.01 [id number] Shanthi Manning NP [place] [id number] 01/17/2025 12:19:46 01/20/2025 11:37:48 Screening mammography 74954753 Z12.31 Hyperlipidemia 24461161 E78.5 Osteopenia 776743252 M85 .80 [id number] Con Chapa MD [place] [id number] 01/28/2025 08:41:03 01/29/2025 12:34:27 Dementia 04086095 F03.90 Mario thyroiditis 21 616565 E06.3 Hypothyroidism 55603232 E03.9 Osteoporosis 50459188 M8 1.0 Arterioscl erotic vascular disease 38814150 I70.90 Benign par oxysmal positional vertigo 153613661 H81.13 Depressive disorder 3548 9007 F32.A Loss of appetite 9828681 6 R63.0 Aspartate aminotransferase serum level above reference range 072715514 R74.01 [id number] Con Chapa MD [place] [id number] 06/26/2025 16:31:48 07/11/2025 14:16:48 Dementia 68183070 F03.90 Mario thyroiditis 21 745227 E06.3 Hypothyroidism 22432283 E03.9 Osteoporosis 11942834 M8 1.0 Arterioscl erotic vascular disease 11856498 I70.90 Depressive disorder 3548 9007 F32.A Loss of appetite 6480240 6 R63.0 Aspartate aminotransferase serum level above reference range 773095911 R74.01 Chronic glossitis 465740 001 K14.0 Dizziness 641855042 R42 66871 Health Concerns Section Related Observation LastModified by Organization Detai ls LastModified Time None Recorded Concern Status LastModified by Organization Details LastModified Time None Recorded Advance Directives Directive None Recorded Payers Insurance Date Sequence Insurance Name Policy Number Policy Blanco Covered Member ID Blanco Member ID Guarantor Name 06/23/2025 2 [facility] (MEDICARE REPLACEMENT/A DVANTAGE - PPO) [id number] Aria Newmark [id number] Aria Newmark 11/09/2023 1 *SELF PAY* Ph yllis Newmark 06/23/2025 1 [place]ICARE [place]: WPS Aria Newmark [id number] Aria Moon Notes Date Note Type Note Provider Name and Address Organization Details Recorded Time 2023 text/h tml [id number] yo F with decreasing memory, high cholesterol, [...] to help with appetiteSchedule with Елена for montenegrin scalp acupuncture for dizziness and meridian for [...] BLADDER REPAIR - suspensionHX ANIKA AND BSOTummy Omerck at same timecolonoscopyCataract FHX:Mother - NH, Stroke, mental disorder, TIAs, alcoholic, massive smokersMaternal [...] 61, TG 170, LDL 102, sdLDL 138, [id number], LDL B, LP(A) 61, hs CRP 2.9, homocysteine 10.7, CMP wnl, glu 98, GFR 81, HgA1c 5.0, D 25.3, TSH 0.03 L, FT4 1.9 H, FT3 3.8, CBC wnl, ferritin 60, B12 605, CTX 647, ins 11, cortisol 28 H, RBC mg 5.1, 3Glu 107, AST 42TSH 126, FT4 0.39 03/21/2023BC, [...] MSQ:41 >> 21 (06/06/24) Con Chapa MD [address], [place], [address] , [place] [employer] 4 17:03:20 2024 text/h tml [id number] yo F with decreasing memory, high cholesterol, back pain, hypothyroid, Mario's, osteoporosis GOALS:1. Improve mental and emotional wellbeing2. Work on dizziness - going to start vestibular therapy, eye tracking are off3. Improving memory [facility]2 days prior felt pressure in her chest, better with aspirinreports no costochondral painLipase elevated, LFTs elevatedCT abdomen was wnlno alcohol, not very many carbsavoiding dairy, no longer eating ice creamcan't get dronabinol [place] [facility] Generally using walker all the timeonce episode [...] to help with appetiteSchedule with Елена for montenegrin scalp acupuncture for dizziness and meridian for [...] BSOTummy Tuck at same timecolonoscopyCataract FHX:Mother - NH, Stroke, mental disorder, TIAs, alcoholic, massive smokersMaternal [...] 61, TG 170, LDL 102, sdLDL 138, [id number], LDL B, LP(A) 61, hs CRP 2.9, [...] MSQ:41 >> 21 (06/06/24) Con Chapa MD [address], [place], [address] , [email or web address] 5 11:00:11 2024 text/h tml Aria is a 79 y/o F whom presents for APV* SEE scanned APV form Shanthi Manning NP [address], [place], [address] , [place] [email or web address] 5 10:54:49 2024 text/h tml [id number] yo F with decreasing memory, high cholesterol, back pain, hypothyroid, Mario's, osteoporosis GOALS:1. Improve mental and emotional wellbeing2. Work on dizziness - going to start vestibular therapy, eye tracking are off3. Improving memory 01/28/2025dizziness mostly when getting upalways a little dizzynot drinking enough fluids, using electrolytessleeping regularly but wakes and wandersrecently started on dronabinolTaking thryoid medication every morningringing in the ears has been present for years 12/24/2024[facility] persistent pain in the chest2 days prior felt pressure in her chest, better with aspirinreports no costochondral painLipase elevated, LFTs elevatedCT abdomen was wnlno alcohol, not very many carbsavoiding dairy, no longer eating ice creamcan't get [place]ronabinol [place] [facility] Generally using walker all the timeonce episode [...] to help with appetiteSchedule with Елена for montenegrin scalp acupuncture for dizziness and meridian for [...] BSOTummy Tuck at same timecolonoscopyCataract FHX:Mother - NH, Stroke, mental disorder, TIAs, alcoholic, massive smokersMaternal [...] losing memory EXPOSURES:Abundant international travel TIMELINE: LABS Reviewed:01/14/25Fe 194, ferritin 56HAV reactive, HBV surface Ab reactive, surface antigen NR, core Ab NRD 106,AST 34, ALT 54amylase 31, lipase 28TSH 38.87, FT4 1.1, FT3 2.2, RT3 16, TPO negCTX 293 12/2024 - ERh/H 15.1/42.4glu 156, GFR 53, AST 44, ALT 55lipase 777 12/2023t CHOL 192, HDL 61, TG 170, LDL 102, sdLDL 138, [id number], LDL B, LP(A) 61,hs CRP 2.9,homocysteine 10.7,CMP wnl, glu 98, GFR 81, HgA1c 5.0,D 25.3,TSH 0.03 L, FT4 1.9 H, FT3 3.8,CBC wnl,ferritin 60, B12 605,CTX 647,ins 11, cortisol 28 H,RBC mg 5.1, 06/14/2023lu 107, AST 42TSH 126, [...] MSQ:41 >> 21 (06/06/24) Con Chapa MD [address] [facility], [place], [address] , [email or web address] 5 11:20:09 2024 text/h tml [id number] yo F with decreasing memory, high cholesterol, back pain, hypothyroid, Mario's, osteoporosis GOALS:1. Improve mental and emotional wellbeing2. Work on dizziness - going to start vestibular therapy, eye tracking are off3. Improving memory 06/26/25did mouthwash drinking alot of protein drinks 4 to 6 a dayvery little solid food, desserts into room, ice creamnot much water intaketakes supplements regularlyuses rollator all of the timecan be dizzy before fallingdoesn't want to get up, doesn't want to leave the house, naps oftenno alcohol at ll any morenot wanderingcan get back to apartment,asssit with showering, and dressing 01/28/2025dizziness mostly when getting upalways a little dizzynot drinking enough fluids, using electrolytessleeping regularly but wakes and wandersrecently started on dronabinolTaking thryoid medication every morningringing in the ears has been present for years 12/24/2024Vitals, EKG good at [facility] been having persistent pain in the chest2 days prior felt pressure in her chest, better with aspirinreports no costochondral painLipase elevated, LFTs elevatedCT abdomen was wnlno alcohol, not very many carbsavoiding dairy, no longer eating ice creamcan't get [place]ron[place]ol [place] [facility] Generally using walker all the timeonce episode [...] to help with appetiteSchedule with Елена for montenegrin scalp acupuncture for dizziness and meridian for [...] BSOTummy Tuck at same timecolonoscopyCataract FHX:Mother - NH, Stroke, mental disorder, TIAs, alcoholic, massive smokersMaternal [...] losing memory EXPOSURES:Abundant international travel TIMELINE: LABS Reviewed:04/16/25ALT 43, AST 31, GFR 72, Glu 108TSH 3.92, FT4 1.24 03/07/25AST 39, ALT 64,TSH 10.34, FT4 1.5, FT3 2.6, RT3 20, HAV neg 01/14/25Fe 194, ferritin 56HAV reactive, HBV surface Ab reactive, surface antigen NR, core Ab NRD 106,AST 34, ALT 54amylase 31, lipase 28TSH 38.87, FT4 1.1, FT3 2.2, RT3 16, TPO negCTX 293 12/2024 - ERh/H 15.1/42.4glu 156, GFR 53, AST 44, ALT 55lipase 777 12/2023t CHOL 192, HDL 61, TG 170, LDL 102, sdLDL 138, [id number], LDL B, LP(A) 61,hs CRP 2.9,homocysteine 10.7,CMP wnl, glu 98, GFR 81, HgA1c 5.0,D 25.3,TSH 0.03 L, FT4 1.9 H, FT3 3.8,CBC wnl,ferritin 60, B12 605,CTX 647,ins 11, cortisol 28 H,RBC mg 5.1, 3Glu 107, AST 42TSH 126, FT4 0.39 3CBC, CMP, TSH wnl 3CBC wnl, MCV 95.8GFR [...] MSQ:41 >> 21 (06/06/24) Con Chapa MD [address], [place], [address] , [facility] [employer] 5 09:23:34 OBGyn Episode No OBEpisode recorded.
--- OUTSIDE RECORDS SUMMARY | 2025-07-21 14:55 | XMS_ITS | Patient Health Record ---
Author Organization [employer] Address [address] [facility] [address] [place] [address] Care Team Providers Care Rig Builder Helper Name Role Phone Morales sesay MD, Betito Primary Care Pro vider Unavailable YamilethorrowRoberto Unavailable [phone] Reason For Referral No Information Plan Of Treatment No Information Insurance Providers Payer Name Payer Address Payer Phone Subscriber Number Group Number Insured Name Patient Relationship to Insured Coverage Start Date Coverage End Date Medicare E2 [address] [address] [place] [address] [id number] Sarai Aria Self - patient is the insured 1 [employer] E2 (DO NOT USE) [address] [place] [address] [id number] Aria Moon Self - patient is the insured 1
--- NOTE | 2025-07-21 15:18 | ED_ITS ---
HPI - Back Pain/Injury General Chief Complaint: Back Pain/Injury <ERIC Bauman Last Filed: 07/21/25 15:35> Stated Complaint: right hip/back pain <ERIC Bauman Last Filed: 07/21/25 15:35> Time Seen by Provider: 07/21/25 15:18 <ERIC Bauman Last Filed: 07/21/25 15:35> Focused HPI: Patient is a 80 y/o female who presents the ED via EMS with report of right lower back pain. Daughter at bedside psychiatric assistant providing information. Patient is a resident of [facility]. Hx of dementia. Reports she was notified by the [facility] today that patient was having pain throughout her right lower back, was unable to ambulate or move due to the pain. Denies any known injury. Daughter is concerned for UTI. She does have history of frequent UTIs. No known history of kidney stones. Patient denies significant abdominal pain. No known fevers. GENERAL: Well-appearing, well-nourished, and in no acute distress. HEAD: Normocephalic, atraumatic. CHEST: Clear to auscultation. ?No respiratory distress. HEART: Regular rate and rhythm.? MSK: No midline spinal tenderness. TTP throughout R lumbosacral region NEURO: ?Alert and oriented x3. Patient screened in triage and initial orders placed.? ?Additional care and disposition to be based upon?diagnostic testing and treatment. <ERIC Bauman Last Filed: 07/21/25 15:35> Source: patient and family <ERIC Bauman Last Filed: 07/21/25 15:35> Mode of arrival: ambulatory <ERIC Bauman Last Filed: 07/21/25 15:35> Limitations: dementia <ERIC Bauman Last Filed: 07/21/25 15:35> Related Data Allergies/Adverse Reactions: Allergies Allergy/AdvReac Type Severity Reaction Status Date / Time Penicillins Allergy Intermediate Rash Verified 07/21/25 14:41 lactose Allergy unknown Verified 07/21/25 14:41 wheat Allergy unknown Verified 07/21/25 14:41 <Josey Gallegos PA-C - Last Filed: 07/21/25 15:35> Review of Systems 2 Review of Systems: All systems reviewed & are unremarkable except as noted in HPI and below <Janice Awad APRN - Last Filed: 07/22/25 03:27> PMFSH Past Medical History Medical History: Medical History Arteriosclerotic vascular disease Dementia Osteoporosis Mario thyroiditis Hypothyroidism Pneumococcal vaccine administered 07/03/2018 COVID-19 vaccine administered 11/27/2020, 12/18/2020; 09/09/2021 <Josey Gallegos PA-C - Last Filed: 07/21/25 15:35> Social History Social History: Social History Social History: POLST signed 02/07/24: Yes CPR, Full Code; selective treatment Living arrangements: assisted living Additional living arrangements comments: [place] since 01/15/24 Occupation/Education: retired 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 HEAD: Normocephalic, atraumatic. NECK: Supple. No adenopathy, no masses. RESPIRATORY: Airway patent, respirations nonlabored. Clear to auscultation bilaterally, no rales, rhonchi, wheezing. CARDIOVASCULAR: Regular rate and rhythm without murmurs, rubs, or gallops. Peripheral pulses 2+ and equal bilaterally. ABDOMINAL: Soft, nontender, nondistended, no hepatosplenomegaly. Normoactive BS. MUSCULOSKELETAL: Moves all extremities. Strength/ROM intact without gross deformities. Negative straight leg test bilaterally SKIN: Warm, dry, normal color. No rashes. NEURO: A&O X3. Speech clear. Cranial nerves II-XII intact. No ataxic movements. PSYCHIATRIC: Appropriate mood and affect. Normal interaction. <Janice Awad, CRATE OPENER - Last Filed: 07/22/25 03:27> Course Vital Signs Vital signs: Vital Signs Temperature 36.3 C L 07/21/25 14:38 Pulse Rate 93 07/21/25 14:38 Respiratory Rate 16 07/21/25 14:38 Blood Pressure 116/86 07/21/25 14:38 Pulse Oximetry 99 07/21/25 14:38 Temperature 36.7 C 07/21/25 20:34 Pulse Rate 81 07/21/25 21:38 Respiratory Rate 14 07/21/25 21:38 Blood Pressure 121/78 07/21/25 21:38 Pulse Oximetry 95 07/21/25 21:38 Oxygen Delivery Room Air 07/21/25 16:18 <Josey Gallegos PA-C - Last Filed: 07/21/25 15:35> Vital Signs Temperature 36.3 C L 07/21/25 14:38 Pulse Rate 93 07/21/25 14:38 Respiratory Rate 16 07/21/25 14:38 Blood Pressure 116/86 07/21/25 14:38 Pulse Oximetry 99 07/21/25 14:38 Temperature 36.7 C 07/21/25 20:34 Pulse Rate 81 07/21/25 21:38 Respiratory Rate 14 07/21/25 21:38 Blood Pressure 121/78 07/21/25 21:38 Pulse Oximetry 95 07/21/25 21:38 Oxygen Delivery Room Air 07/21/25 16:18 <Janice Awad, CRATE OPENER - Last Filed: 07/22/25 03:27> MDM - Back Pain/Injury MDM Narrative Medical decision making narrative: MSE by DINH in triage. <Josey Gallegos PA-C - Last Filed: 07/21/25 15:35> MSE by DINH in triage. Patient is a 80 y/o female who presents the ED via EMS with report of right lower back pain. Daughter at bedside psychiatric assistant providing information. Patient is a resident of [facility]. Hx of dementia. Reports she was notified by the [facility] today that patient was having pain throughout her right lower back, was unable to ambulate or move due to the pain. Denies any known injury. Daughter is concerned for UTI. She does have history of frequent UTIs. No known history of kidney stones. Patient denies significant abdominal pain. No known fevers. Labs Ordered: CBC, CMP, UA Imaging Ordered: CT abdomen pelvis Medications Ordered: Meclizine p.o., Zofran 4 mg IV x2, Dilaudid 0.5 mg IV, Toradol 15 mg IV, Flexeril 5 mg p.o., Tylenol 1 g p.o. Results: Pt's CT scan indicates The lung bases are clear. The liver parenchyma is unremarkable. No intrahepatic mass or ductal dilatation is evident. The gallbladder is unremarkable. The pancreas and spleen are normal in appearance. The adrenal glands are symmetric in size. The kidneys are unremarkable. No intrarenal stones are noted. There is no hydronephrosis. Evaluation of the stomach and bowel loops are limited due to lack of oral contrast. There is no evidence of bowel obstruction or acute appendicitis. There are colonic diverticulosis without evidence of acute diverticulitis. The bladder and rectum are normal. No free intraperitoneal fluid or air is evident. There is no significant retroperitoneal lymphadenopathy. The aorta, visceral vessels and renal arteries demonstrate normal caliber. The lower thoracic and lumbar vertebrae are in normal alignment. Diagnosis: Lumbar radiculopathy Patient Education/Shared MDM: Patient continues to endorse pain after Tylenol and Flexeril administration. She will be given steroids and Toradol. Patient endorses mild pain relief but reports it is still difficult to sit up without pain so she will be given Dilaudid. She also endorses nausea so patient will be given Zofran IV. Patient reports her pain is better but her nausea continuous so she will be given a 2nd dose of Zofran IV. She also endorses nausea at this time. Patient's daughter reports this is a chronic condition. Patient will be given a dose of meclizine to see if this helps improve her symptoms. If patient is able to ambulate then she will be discharged home with her daughter. Patient started vomiting. She endorses ongoing dizziness and nausea. Will give pt Valium IM prior to discharge. Results of lab work and imaging shared with patient. Pt endorses improvement of symptoms following Valium medication administration. She is very drowsy, but is easily arousable, answer questions, and able to move her legs over the side of the stretcher. HYDRAULIC DESIGN ENGINEER suggested pt should be monitored here in the ER for a while to ensure she is not oversedated. Her family is requesting pt be discharged so they can get her home and sleep in her own bed. Patient strongly advised to maintain hydration status upon discharge and follow-up with her PCP as soon as possible. She will be discharged home with a prescription for lidocaine patches, ibuprofen, and steroids. Strict return precautions provided. Patient verbalized understanding and is in agreement with plan. Vital signs stable at time of discharge. All questions answered. <Janice Awad APRN - Last Filed: 07/22/25 03:27> Differential Diagnosis Differential diagnosis: Likely lumbar radiculopathy, sciatica, strain of lumbar region and pyelonephritis <Janice Awad APRN - Last Filed: 07/22/25 03:27> Lab Data Attestation: I reviewed the patient's lab results. <Janice Awad APRN - Last Filed: 07/22/25 03:27> Result diagrams: 07/21/25 16:13 07/21/25 16:13 <Josey Gallegos PA-C - Last Filed: 07/21/25 15:35> Labs: Lab Results 07/21/25 07/21/25 Range/Units 15:58 16:13 WBC 9.0 (4.5-10.0) K/mm3 RBC 4.84 (4.2-5.4) M/mm3 Hgb 15.4 H (12.0-15.0) g/dL Hct 44.4 (37.0-47.0) % MCV 91.7 (80-100) fl MCH 31.8 (26-34) pg MCHC 34.7 (32-36) g/dl RDW 12.3 (11.5-14.5) % Plt Count 216 (150-375) k/mm3 MPV 9.3 (7.4-10.4) fl Immature Gran % (Auto) 0.2 (0-0.5) % Neut % (Auto) 67.1 (45.5-73.1) % Lymph % (Auto) 23.8 (18.3-44.2) % Carbon % (Auto) 7.9 (2.6-8.5) % Eos % (Auto) 0.7 (0-4.4) % Baso % (Auto) 0.3 (0.2-1.2) % Lymph # (Auto) 2.15 (0.9-3.2) K/mm3 Carbon # (Auto) 0.7 H (0.1-0.6) K/mm3 Eos # (Auto) 0.1 (0-0.3) K/mm3 Baso # (Auto) 0.0 (0.0-0.1) K/mm3 Abs Immat Gran (auto) 0.02 (0.00-0.031) K/mm3 Absolute Neuts (auto) 6.1 (1.3-6.7) K/mm3 Absolute Nucleated RBC 0.000 (0.0-0.012) K/mm3 Nucleated RBC % 0.0 (0.0-0.2) % Sodium 133 L (137-145) mmol/L Potassium 4.0 (3.4-5.0) mmol/L Chloride 101 (98-107) mmol/L Carbon Dioxide 23 (22-30) mmol/L Anion Gap 9 (4-12) mmol/L BUN 23 H D (7-17) mg/dL Creatinine 0.66 L (0.7-1.0) mg/dL Estim Creat Clear Calc 56 ml/min Estimated GFR > 60 (59 - ) Glucose 126 H (65-110) mg/dL Calcium 9.4 (8.4-10.2) mg/dL Total Bilirubin 0.6 (0.2-1.3) mg/dL AST 39 H (14-36) U/L ALT 52 H (6-35) U/L Alkaline Phosphatase 97 (38-126) U/L Total Protein 7.6 (6.3-8.2) g/dL Albumin 4.2 (3.5-5.1) g/dL Urine Color Yellow (Yellow) Urine Appearance Clear (Clear) Urine pH 5.5 (5.0-9.0) Ur Specific Living[place] 1.019 (1.001-1.035) Urine Protein Negative (Negative) mg/dL Urine Glucose (UA) Negative (Negative) mg/dL Urine Ketones Negative (Negative) mg/dL Ur Blood (Man) Negative (Negative) Urine Nitrate Negative (Negative) Urine Bilirubin Negative (Negative) Urine Urobilinogen 0.2 (<2.0) mg/dL Leukocyte Esterase Rfl Negative (Negative) CATY/UL <Josey Gallegos PA-C - Last Filed: 07/21/25 15:35> Lab Results 07/21/25 07/21/25 Range/Units 15:58 16:13 WBC 9.0 (4.5-10.0) K/mm3 RBC 4.84 (4.2-5.4) M/mm3 Hgb 15.4 H (12.0-15.0) g/dL Hct 44.4 (37.0-47.0) % MCV 91.7 (80-100) fl MCH 31.8 (26-34) pg MCHC 34.7 (32-36) g/dl RDW 12.3 (11.5-14.5) % Plt Count 216 (150-375) k/mm3 MPV 9.3 (7.4-10.4) fl Immature Gran % (Auto) 0.2 (0-0.5) % Neut % (Auto) 67.1 (45.5-73.1) % Lymph % (Auto) 23.8 (18.3-44.2) % Carbon % (Auto) 7.9 (2.6-8.5) % Eos % (Auto) 0.7 (0-4.4) % Baso % (Auto) 0.3 (0.2-1.2) % Lymph # (Auto) 2.15 (0.9-3.2) K/mm3 Carbon # (Auto) 0.7 H (0.1-0.6) K/mm3 Eos # (Auto) 0.1 (0-0.3) K/mm3 Baso # (Auto) 0.0 (0.0-0.1) K/mm3 Abs Immat Gran (auto) 0.02 (0.00-0.031) K/mm3 Absolute Neuts (auto) 6.1 (1.3-6.7) K/mm3 Absolute Nucleated RBC 0.000 (0.0-0.012) K/mm3 Nucleated RBC % 0.0 (0.0-0.2) % Sodium 133 L (137-145) mmol/L Potassium 4.0 (3.4-5.0) mmol/L Chloride 101 (98-107) mmol/L Carbon Dioxide 23 (22-30) mmol/L Anion Gap 9 (4-12) mmol/L BUN 23 H D (7-17) mg/dL Creatinine 0.66 L (0.7-1.0) mg/dL Estim Creat Clear Calc 56 ml/min Estimated GFR > 60 (59 - ) Glucose 126 H (65-110) mg/dL Calcium 9.4 (8.4-10.2) mg/dL Total Bilirubin 0.6 (0.2-1.3) mg/dL AST 39 H (14-36) U/L ALT 52 H (6-35) U/L Alkaline Phosphatase 97 (38-126) U/L Total Protein 7.6 (6.3-8.2) g/dL Albumin 4.2 (3.5-5.1) g/dL Urine Color Yellow (Yellow) Urine Appearance Clear (Clear) Urine pH 5.5 (5.0-9.0) Ur Specific [place] 1.019 (1.001-1.035) Urine Protein Negative (Negative) mg/dL Urine Glucose (UA) Negative (Negative) mg/dL Urine Ketones Negative (Negative) mg/dL Ur Blood (Man) Negative (Negative) Urine Nitrate Negative (Negative) Urine Bilirubin Negative (Negative) Urine Urobilinogen 0.2 (<2.0) mg/dL Leukocyte Esterase Rfl Negative (Negative) CATY/UL <Janice Awad APRN - Last Filed: 07/22/25 03:27> Imaging Data Attestation: I personally reviewed and interpreted this imaging study as follows: < Janice Awad APRN - Last Filed: 07/22/25 03:27> Radiologist's impression: Impressions Abdomen/Pelvis CT 07/21/25 17:03 IMPRESSION: No acute abnormality is noted in the abdomen and pelvis. Colonic diverticulosis without evidence of acute diverticulitis. All CT scans at this facility are performed using low dose modulation techniques as appropriate to perform exam including the following: automated exposure control; use of iterative reconstruction technique; adjustment of the mA and/or kV according to patient size (this includes techniques or standardized protocols for targeted exams where dose is matched to indication/reason for exam). <Janice Awad APRN - Last Filed: 07/22/25 03:27> Discharge Plan Discharge Clinical Impression: Lumbar radiculopathy, Dizziness of unknown cause <ERIC Bauman Last Filed: 07/21/25 15:35> Patient Disposition: Home <ERIC Bauman Last Filed: 07/21/25 15:35> Condition: Stable <ERIC Bauman Last Filed: 07/21/25 15:35> Instructions: Antibiotic Form, Lumbar Radiculopathy (ED) <ERIC Bauman Last Filed: 07/21/25 15:35> Additional Instructions: Please return to the ER with any worsening symptoms. Follow-up with primary care provider as soon as possible for re-evaluation. Take all medications as prescribed, including regularly scheduled medications. Please use lidocaine patches, ibuprofen, and steroids for back pain. <ERIC Bauman Last Filed: 07/21/25 15:35> Patient Language: Tuvaluan <ERIC Bauman Last Filed: 07/21/25 15:35> Prescriptions: New ibuprofen 600 mg tablet 600 mg PO TID PRN (Reason: pain) Qty: 30 0RF methylprednisolone [Medrol (Roger)] 4 mg tablets,dose pack See Rx Instructions .ROUTE .COMPLEX Qty: 21 0RF Rx Instructions: for 6 days cyclobenzaprine 5 mg tablet 5 mg PO TID PRN (Reason: muscle spasm) Qty: 20 0RF lidocaine 5 % adhesive patch,medicated 2 patch topical DAILY Qty: 30 0RF Rx Instructions: leave on most painful area for up to 12 hrs No Action acetaminophen 500 mg capsule 1,000 mg PO Q6H PRN (Reason: pain) Qty: 30 0RF lidocaine 4 % adhesive patch,medicated 1 patch topical DAILY PRN (Reason: pain) Qty: 5 0RF ibuprofen 600 mg tablet 600 mg PO TID PRN (Reason: pain) Qty: 30 0RF <ERIC Bauman Last Filed: 07/21/25 15:35> Follow-up/Referrals: UNKNOWN,DOCTOR [Non-Staff] <ERIC Bauman Last Filed: 07/21/25 15:35> Time of Disposition: 21:01 <Josey Gallegos PA-C - Last Filed: 07/21/25 15:35> 21:01 <Janice Awad APRN - Last Filed: 07/22/25 03:27>
[2025-07-21] MEDS: ACETAMINOPHEN 500 MG TABLET 1000 MG PO (16:06)
[2025-07-21] MEDS: CYCLOBENZAPRINE HCL 5 MG TABLET PO (16:07)
[2025-07-21 16:10] LABS: Add Urine Microscopic? NO; Appearance Urine Clear (Clear); Glucose Urine UA Negative (Negative); Leukocyte Esterase Ur Negative LEU/UL (Negative); Nitrate Urine Negative (Negative); Specific Grav Ur 1.019 (1.001-1.035)
[2025-07-21 16:18] VITALS: BP 120/84; PULSE 75; RESP 19; TEMP 36.6; O2SAT 97
[2025-07-21 16:28] LABS: Hematocrit 44.4 % (37.0-47.0); Hemoglobin 15.4 g/dL (12.0-15.0); Immature Granulocyte Percent A 0.2 % (0-0.5); Lymphocytes Absolute Auto 2.15 K/mm3 (0.9-3.2); Mean Corpuscular HGB Conc 34.7 g/dl (32-36); Mean Corpuscular Hemoglobin 31.8 pg (26-34); Mean Corpuscular Volume 91.7 fl (80-100); Nucleated Red Blood Cells Absolute Auto 0.000 K/mm3 (0.0-0.012); Nucleated Red Blood Cells Perc 0.0 % (0.0-0.2); Platelet Count Result 216 k/mm3 (150-375); Red Blood Count 4.84 M/mm3 (4.2-5.4); White Blood Count 9.0 K/mm3 (4.5-10.0)
[2025-07-21 16:38] LABS: Alanine Aminotransferase 52 U/L (6-35); Albumin Level 4.2 g/dL (3.5-5.1); Alkaline Phosphatase 97 U/L (38-126); Anion Gap 9 mmol/L (4-12); Aspartate Amino Transferase 39 U/L (14-36); Bilirubin,Total 0.6 mg/dL (0.2-1.3); Blood Urea Nitrogen 23 mg/dL (7-17); Calcium 9.4 mg/dL (8.4-10.2); Carbon Dioxide 23 mmol/L (22-30); Chloride 101 mmol/L (98-107); Estimated CRCL calculation 56 ml/min; Estimated Glomerular Filt Rate > 60; Glucose 126 mg/dL (65-110); Potassium 4.0 mmol/L (3.4-5.0); Sodium 133 mmol/L (137-145); Total Protein 7.6 g/dL (6.3-8.2)
[2025-07-21] MEDS: KETOROLAC 15 MG/ML VIAL (*BKC) IV PUSH (18:23)
--- OUTSIDE RECORDS SUMMARY | 2025-07-21 18:36 | XMS_ITS | Encounter Summary ---
Author Organization [employer] Address 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 mention of vaginal wall prolapse (Primary Dx) Social History Tobacco Use Types Packs/Day Years Used Date Smoking Tobacco: Never Assessed Comments Unknown Sex and Gender Information Value Date Recorded Sex Assigned at Female 11/20/2023 8:52 PM HOG SAWYER Legal Sex Female 5:08 AM HOG SAWYER Gender Identity Female 11/20/2023 8:52 PM HOG SAWYER Sexual Orientation Not on file documented as of this encounter Plan of Treatment Not on file documented as of this encounter Visit Diagnoses Diagnosis Uterine prolapse without mention of vaginal wall prolapse- Primary documented in this encounter Care Teams Hand Tapper Relationship Specialty Start Date End Date Jimena Granados MD PCP - General Family Practice 08/30/22 documented as of this encounter
--- OUTSIDE RECORDS SUMMARY | 2025-07-21 18:36 | XMS_ITS | Encounter Summary ---
Author Organization [employer] Address [address] [place] [address] Care Team Providers Care Bindery Chief Name Role Phone Jimena Granados MD Primary Care Provider [phone] Encounter Details Date Type Department Care Team (Late st Contact Info) Description 05/28/2003 Outpatient Historical [facility], [address] Gwen Penn MD [address] [facility] [address] [place] [address] URIN TRACT INFECTION NOS (Primary Dx) Social History Tobacco Use Types Packs/Day Years Used Date Smoking Tobacco: Never Assessed Comments Unknown Sex and Gender Information Value Date Recorded Sex Assigned at Female 11/20/2023 8:52 PM ENVIRONMENTAL AIR SPECIALIST Legal Sex Female 5:08 AM ENVIRONMENTAL AIR SPECIALIST Gender Identity Female 11/20/2023 8:52 PM ENVIRONMENTAL AIR SPECIALIST Sexual Orientation Not on file documented as of this encounter Plan of Treatment Not on file documented as of this encounter Visit Diagnoses Diagnosis Urinary tract infection, site not specified- Primary documented in this encounter Care Teams Bindery Chief Relationship Specialty Start Date End Date Jimena Granados MD PCP - General Family Practice 08/30/22 documented as of this encounter
--- OUTSIDE RECORDS SUMMARY | 2025-07-21 18:36 | XMS_ITS | Encounter Summary ---
Author Organization [employer] Address [address] [place] [address] Care Team Providers Care Wildland Firefighter Name Role Phone Jimena Granados MD Primary Care Provider [phone] Encounter Details Date Type Department Care Team (Latest Contact Info) Description 09/25/1998 Outpatient Historical [place] [address] [place] [address] Postmenopausal bleeding (Primary Dx) Social History Tobacco Use Types Packs/Day Years Used Date Smoking Tobacco: Never Assessed Comments Unknown Sex and Gender Information Value Date Recorded Sex Assigned at Female 11/20/2023 8:52 PM TRANSFERRER Legal Sex Female 5:08 AM TRANSFERRER Gender Identity Female 11/20/2023 8:52 PM TRANSFERRER Sexual Orientation Not on file documented as of this encounter Plan of Treatment Not on file documented as of this encounter Visit Diagnoses Diagnosis Postmenopausal bleeding- Primary documented in this encounter Care Teams Wildland Firefighter Relationship Specialty Start Date End Date Jimena Granados MD PCP - General Family Practice 08/30/22 documented as of this encounter
--- OUTSIDE RECORDS SUMMARY | 2025-07-21 18:36 | XMS_ITS | Encounter Summary ---
Author Organization [employer] Address [address] [place] [address] Care Team Providers Care Legal Support Assistant Name Role Phone Jimena Granados MD Primary Care Provider [phone] Encounter Details Date Type Department Care Team (Late st Contact Info) Description 06/23/2003 Outpatient Historical [facility] Gwen Penn MD [address] [facility] [address] [place] [address] RENAL & URETERAL DIS NOS (Primary Dx) Social History Tobacco Use Types Packs/Day Years Used Date Smoking Tobacco: Never Assessed Comments Unknown Sex and Gender Information Value Date Recorded Sex Assigned at Female 11/20/2023 8:52 PM GAS PLUMBING INSPECTOR Legal Sex Female 5:08 AM GAS PLUMBING INSPECTOR Gender Identity Female 11/20/2023 8:52 PM GAS PLUMBING INSPECTOR Sexual Orientation Not on file documented as of this encounter Plan of Treatment Not on file documented as of this encounter Visit Diagnoses Diagnosis Unspecified disorder of kidney and ureter- Primary documented in this encounter Care Teams Legal Support Assistant Relationship Specialty Start Date End Date Jimena Granados MD PCP - General Family Practice 08/30/22 documented as of this encounter
--- OUTSIDE RECORDS SUMMARY | 2025-07-21 18:36 | XMS_ITS | Encounter Summary ---
Author Organization [employer] Address [address] [place] [address] Care Team Providers Care Licensed Psychiatric Technician Name Role Phone Jimena Granados MD Primary Care Provider [phone] Encounter Details Date Type Department Care Team (Late st Contact Info) Description 05/12/2003 Inpatient Historical [facility] Gwen Penn MD [address] [facility] [address] [place] [address] VAGINAL ENTEROCELE (Primary Dx) Social History Tobacco Use Types Packs/Day Years Used Date Smoking Tobacco: Never Assessed Comments Unknown Sex and Gender Information Value Date Recorded Sex Assigned at Female 11/20/2023 8:52 PM ASSISTANT PRESSMAN Legal Sex Female 5:08 AM ASSISTANT PRESSMAN Gender Identity Female 11/20/2023 8:52 PM ASSISTANT PRESSMAN Sexual Orientation Not on file documented as of this encounter Plan of Treatment Not on file documented as of this encounter Visit Diagnoses Diagnosis Vaginal enterocele, congenital or acquired- Primary documented in this encounter Care Teams Licensed Psychiatric Technician Relationship Specialty Start Date End Date Jimena Granados MD PCP - General Family Practice 08/30/22 documented as of this encounter
--- OUTSIDE RECORDS SUMMARY | 2025-07-21 18:36 | XMS_ITS | Encounter Summary ---
Author Organization [employer] [facility] Address [address] [place] [address] Care Team Providers Care Oral Hygienist Name Role Phone Jimena Granados MD Primary Care Provider [phone] Encounter Details Date Type Department Care Team (Latest Contact Info) Description 05/04/2009 Outpatient Historical [facility] [place] [address] [place] [address] Special Screening for Osteoporosis Social History Tobacco Use Types Packs/Day Years Used Date Smoking Tobacco: Never Assessed Comments Unknown Sex and Gender Information Value Date Recorded Sex Assigned at Female 11/20/2023 8:52 PM GROOMING ASSISTANT Legal Sex Female 5:08 AM GROOMING ASSISTANT Gender Identity Female 11/20/2023 8:52 PM GROOMING ASSISTANT Sexual Orientation Not on file documented as [...] AM CDT Narrative 05/04/2009 10:15 AM CDT [place] [address] [place] [address] Admit Date: 05/04/2009 ARIA MOON Sex: F Admit Prov: KEVIN COBURN Date: 1945 Primary Care Prov: CMRN: [id number] Room: [facility]: [address] [place] [address] IMAGING SERVICES Ordering Prov: N/A Accession Number: [id number] Interpretation Examination: Bone Density Study (DEXA) Clinical [...] Procedure Note Immanuel Carrasco MD - 05/04/2009 [facility] [address] [place], [place] [address] Admit Date: 05/04/2009 ARIA MOON Sex: F Admit Prov: KEVIN COBURN Date: 1945 Primary Care Prov: CMRN: [id number] Room: [facility]: [address] [place] [address] IMAGING SERVICES Ordering Prov: N/A Interpretation Examination: [...] osteoporosis documented in this encounter Care Teams Oral Hygienist Relationship Specialty Start Date End Date Jimena Granados MD PCP - General Family Practice 08/30/22 documented as of this encounter
--- OUTSIDE RECORDS SUMMARY | 2025-07-21 18:36 | XMS_ITS | Encounter Summary ---
Author Organization [facility] Address [address] [place] [address] Care Team Providers Care Bicycle Rental Clerk Name Role Phone Jimena Granados MD Primary Care Provider [phone] Encounter Details Date Type Department Care Team (Late st Contact Info) Description 04/30/2003 Outpatient Historical [facility] Support Serv. ([facility]) [address] [place] [id number] Sunil Miles Social History Tobacco Use Types Packs/Day Years Used Date Smoking Tobacco: Never Assessed Comments Unknown Sex and Gender Information Value Date Recorded Sex Assigned at Female 11/20/2023 8:52 PM UNDERWRITING SUPPORT MANAGER Legal Sex Female 5:08 AM UNDERWRITING SUPPORT MANAGER Gender Identity Female 11/20/2023 8:52 PM UNDERWRITING SUPPORT MANAGER Sexual Orientation Not on file documented as of this encounter Plan of Treatment Not on file documented as of this encounter Visit Diagnoses Not on filedocumented in this encounter Care Teams Bicycle Rental Clerk Relationship Specialty Start Date End Date Jimena Granados MD PCP - General Family Practice 08/30/22 documented as of this encounter
--- OUTSIDE RECORDS SUMMARY | 2025-07-21 18:37 | XMS_ITS | Clinical Summary ---
Author Organization [facility] Address [address] [place] [address] Care Team Providers Care Head Porter Name Role Phone Freddy TIWRAI MD, Con Brown Primary Care Provider Allergies [...] be. Assessment & Plan (08/14/2024 11:00 AM HRIS COORDINATOR): Continue donepezil/Aricept 10 mg daily. We will [...] on file Legal Sex Female 12:17 PM HRIS COORDINATOR Gender Identity Not on file Sexual Orientation [...] 7:55 PM CDT EXAM: Bone mineral density [facility]. HISTORY: Status post hysterectomy at the age of 58. Patient currently taking calcium and vitamin D. DXA BMD was done at [facility] on a SafetyTat CI. Precision testing at this site has [...] Requesting: KEVIN COBURN M.D. Requesting Requesting ID: [id number] Attending Attending ID: [id number] Completed Time: 03/28/2017 2:55 PM Dictated Time: [...] Margarita - 03/28/2017 EXAM: Bone mineral density [facility]. HISTORY: Status post hysterectomy at the age of 58. Patient currently taking calcium and vitamin D. DXA BMD was done at [facility] on a SafetyTat CI. Precision testing at this site has [...] Requesting: KEVIN COBURN M.D. Requesting Requesting ID: [id number] Attending Attending ID: [id number] Completed Time: 03/28/2017 2:55 PM Dictated Time: [...] Recently Relevant to Health Maintenance Insurance MEDICARE [facility] Address: [address] [address] [place] [address] [facility] MEDICARE ADVANTAGE Care Teams Head Porter Relationship Specialty Start Date End Date Con Hayes III, MD [address] [place] [address] PCP - General Family Medicine 07/17/24
[2025-07-21] MEDS: HYDROmorphone HCL INJ (*CRX) 1 MG/ML SYR 0.5 MG IV PUSH (19:48)
[2025-07-21] MEDS: ONDANSETRON INJ 4 MG/2 ML VIAL IV PUSH ×2 (19:49→20:27)
[2025-07-21 20:34] VITALS: BP 124/80; PULSE 78; RESP 15; TEMP 36.7; O2SAT 95
[2025-07-21] MEDS: diazePAM INJ (*CRX) 10 MG/2 ML SYRINGE 5 MG IM (20:59)
[2025-07-21] MEDS: MECLIZINE HCL 25 MG TABLET PO (21:00)
[2025-07-21 21:09] VITALS: BP 111/69; PULSE 78; RESP 17; O2SAT 96
[2025-07-21] MEDS: LIDOCAINE 5% PATCH 1 PATCH TRANSDERM (21:23)
[2025-07-21 21:38] VITALS: BP 121/78; PULSE 81; RESP 14; O2SAT 95
== END 2025-07-21 21:39 ==
PROVIDERS: Physician Assistant; Emergency Provider Registered Nurse; PCP Pathology Cytopathology
DX: M54.16 Radiculopathy, lumbar region (principal); R42 Dizziness and giddiness; F03.90 Unspecified dementia, unspecified severity, without behavioral disturbance, psychotic disturbance, mood disturbance, and anxiety; I70.90 Unspecified atherosclerosis; E06.3 Autoimmune thyroiditis; M81.0 Age-related osteoporosis without current pathological fracture
CPT/HCPCS: 36415; 74176; 80053; 81003; 85025; 96372; 96374; 96375; 96376; 99284; A9270; J1171; J1885; J2405; J3360; J7512